=== PATIENT | male | born 1965 | race Caucasian/White ===

== ENCOUNTER 2025-05-17 13:27 | Emergency (ER) | payer MEDICARE, SELFPAY ==
--- OUTSIDE RECORDS SUMMARY | 2025-05-06 13:30 | XMS_ITS | Encounter Summary ---
Author Organization [facility] Address [address] [place] [address] Care Team Providers Care Paper Sales Representative Name Role Phone Carrol Stehi MD Primary Care Provider [phone] Jacquie Townsend Unavailable [phone] Melanie Gallegos LPN Unavailable Reason for Visit * Reason Comments Medication Problem He states he still d oes not have his insulin, it was going to cost him $700. Encounter Details Date Type Department Care Team (Late st Contact Info) Description 05/06/2025 1:30 PM EDT Office Visit [facility] [place] [facility] [address] [facility] [address] [place] [id number] Jacquie Townsend PA [address] [facility] [address] [place] [address] Type 2 diabetes mellitus with other specified [...] Sertraline. He has not heard anything from [facility] and states he did not know anything about the referral. He does feel depressed but also feels like the meds are helping. He states he has uncorked a time capsule , he did go see a meeting facilitator though.States ever since he fell at the [...] complication, with long-term current use of insulin ([facility]) - Glucose Blood (Blood Glucose Test) strip; 1 each by In Vitro route Daily Provided pt with prescription for test strips. He will need to let the pharmacy know what type of glucometer he has. He was unable to afford the Austin CGM. Patient spoke with Melanie Gallegos LPN, Care Management child care team lead today. He declines the Care Management services, [...] month. Provided pt with phone number for [facility]. He can reach out to their office to schedulean appointment. Follow up in about 4 weeks (around 06/03/2025) for Diabetes. documented in this encounter Plan of Treatment Upcoming Encounters Date Type Department Care Team (Late st Contact Info) Description 05/22/2025 3:00 PM EDT Office Visit [facility] [place] [address] [facility] [address] [place] [address] Jacquie Townsend PA [address] [facility] [address] [place] [address] documented as of this encounter Visit Diagnoses [...] documented as of this encounter Care Teams Paper Sales Representative Relationship Specialty Start Date End Date Carrol Sethi MD [address] [facility] [address] [place] [address] PCP - General Family Medicine 01/18/23 Jacquie Townsend PA [address] [facility] [address] [place] [address] PCP - ACO Reach 10/19/24 Melanie Gallegos LPN 112 [facility] [address] [place] [address] 05/03/25 05/07/25 documented as of this encounter
--- OUTSIDE RECORDS SUMMARY | 2025-05-12 21:15 | XMS_ITS | Encounter Summary ---
Author Organization [facility] [employer] [facility] tem Address [facility] [id number] [address] [place] [address] Care Team Providers Care Gauger Delivery Name Role Phone Jacquie Townsend Primary Care Provider [phone] Reason for Visit * Reason Comments Fall Encounter Details Date Type Department Care Team (Late st Contact Info) Description 05/12/2025 9:15 PM EDT - 05/13/2025 12:48 AM EDT Emergency [facility] - Emergency [address] [place] [address] [employer], [address] [place] [address] Recurrent falls while walking (Primary Dx); Neck pain; Left anterior shoulder pain; Left buttock pain; Localized swelling of both lower extremities; Muscle pain Discharge Disposition: Home Social History Tobacco Use Types Packs/Day Years Used Date Smoking Tobacco: Every Day Cigars Smokeless Tobacco: Never Tobacco Cessation:Ready to Q uit: Not Asked; Counseling Given: Not Answered Hunger Screening Answer Date Recorded Within the past 12 months we worried whether our food would run out before we got money to buy more. Never True 05/12/2025 Within the past 12 months th e food we bought just didn't last and we didn't have money to get more. Never True 05/12/2025 Sex and Gender Information Value Date Recorded Sex Assigned at Not on file Legal Sex Male 11:26 AM EDT Gender Identity Not on file Sexual Orientation Not on file documented as of this encounter Last Filed Vital Signs Vital Sign Reading Time Taken Comments Blood Pressure 165/85 05/13/2025 12:15 AM EDT Pulse 89 05/13/2025 12:15 AM EDT Temperature 36.8 C (98.2 F) 05/12/2025 9:28 PM EDT Respiratory Rate 19 05/13/2025 12:15 AM EDT Oxygen Saturation 96% 05/13/2025 12:15 AM EDT Inhaled Oxygen Concentration - - Weight 105 kg (231 lb 7.7 oz) 05/12/2025 9:28 PM EDT Height 185 cm (6' 0.84 ) 05/12/2025 9:28 PM EDT Body Mass Index 30.68 05/12/2025 9:28 PM EDT documented in this encounter Discharge Instructions * Discharge Instructions* Arya Godfrey DO - 05/13/2025 12:27 AM EDT Ice any area of pain Take Percocet as needed for pain Be sure to utilize cane for ambulation Return the ED if you are having any further symptoms or issues with recurrent falls or you have anyinjuries from any other falls in the future Follow-up with your primary care provider's and others specialist with regards to your chronic conditions * Attachments The following attachments cannot be sent through Care Everywhere. * Muscle, joint, and bone pain ??? Discharge instructions ([place]) * Preventing falls in adults ([place]) documented in this encounter Medications at Time of Discharge apixaban (ELIQUIS) 5 mg tablet Take 1 tablet (5 mg total) by mouth in the morning and 1 tablet (5 mg total) before bedtime. cholecalciferol, vitamin D3, (VITAMIN D3) 5,000 units tablet Take 1 tablet (5,000 Units total) by mouth in the morning. furosemide (LASIX) 20 mg tablet Take 1 tablet (20 mg total) by mouth 2 (two) times a day. gabapentin (NEURONTIN) 800 mg tablet Take 1 tablet (800 mg total) by mouth 3 (three) times a day. lamoTRIgine (LaMICtal) 100 mg tablet Take 1 tablet (100 mg total) by mouth in the morning. metoprolol tartrate (LOPRESSOR) 50 mg tablet Take 1 tablet (50 mg total) by mouth in the morning and 1 tablet (50 mg total) before bedtime. QUEtiapine (SEROquel) 100 mg tablet Take 1 tablet (100 mg total) by mouth nightly. sertraline (ZOLOFT) 100 mg tablet Take 1 tablet (100 mg total) by mouth in the morning. oxyCODONE-acetami nophen (PERCOCET) 5-325 mg per tabletIndications :Muscle pain Take 1 tablet by mouth every 6 (six) hours as needed for pain for up to 3 days. 3 Day Supply Max Daily Amount: 4 tablets 12 tablet 05/13/2025 05/16/2025 documented as of this encounter ED Notes * Arya Godfrey, - 05/12/2025 9:44 PM EDTAssociated Order(s): Critical Care Images from the original note were not included. [facility] - EM[facility]GENCY Pt Name: Ross Martin Birthdate: 1965 Chief Complaint: Chief Complaint Patient presents with Fall History of Present Illness: Initial evaluation performed at 9:[address] Arya Godfrey. Ross Martin is a 60 y.o. male who presents to the ED for evaluation of fall. Pt states he hasfrequently been falling recently with the most recent episode being today. Pt states he was walkingwith his cane when he stumbled over his feet and fell backwards, hitting his head. Pt states that after hitting his head he saw stars and notes that he has a headache now. Pt notes that he also injured his left wrist, left elbow, left shoulder, and left buttock. Pt states that his legs are more swollen than they have ever been. 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 Pt states that he is diabetic. Pt notes a family history of CHF on his mother's side and Parkinson'sdisease on his father's side. Pt states that he smokes marijuana but states that he has not today. 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 No pertinent family history. Social History: Social History Socioeconomic History Marital status: Tobacco Use Smoking status: Every Day Types: Cigars Smokeless tobacco: Never Social Drivers of Health Food Insecurity: No Food Insecurity (05/12/2025) Hunger Screening Food Insecurity - Worry: Never True Food Insecurity - Inability: Never True Review of Systems: Review of Systems Physical Exam: ED Triage Vitals [05/12/252127] Temp Heart Rate Resp BP SpO2 36.8 ??C (98.2 ??F) 87 18 187/90 95 % Temp src Heart Rate Source Patient Position BP Location FiO2 (%) -- Monitor Sitting Left arm -- Vitals: 05/12/25 2315 05/12/25 2330 05/12/25 2345 05/13/25 0015 BP: 165/85 Temp: Pulse: 98 97 85 89 Resp: 20 25 20 19 SpO2: 96% 99% 99% 96% MAP (mmHg): Height: Weight: 96 Physical Exam Vitals and nursing note reviewed. Constitutional: General: He is awake. He is not in acute distress. Appearance: Normal appearance. He is well-developed, well-groomed and normal weight. He is not ill-appearing. HENT: Head: Normocephalic. Contusion (occipital) present. Right Ear: Hearing, tympanic membrane, ear canal and external ear normal. No hemotympanum. Left Ear: Hearing, tympanic membrane, ear canal and external ear normal. No hemotympanum. Nose: Nose normal. No nasal deformity, septal deviation or signs of injury. Right Nostril: No epistaxis or septal hematoma. Left Nostril: No epistaxis or septal hematoma. Mouth/Throat: Lips: [place]. Mouth: Mucous membranes are moist. No injury, lacerations or oral lesions. Pharynx: Oropharynx is clear. Eyes: General: Lids are normal. Vision grossly intact. Gaze aligned appropriately. Extraocular Movements: Extraocular movements intact. Conjunctiva/sclera: Conjunctivae normal. Pupils: Pupils are equal, round, and reactive to light. Neck: Trachea: Phonation normal. Cardiovascular: Rate and Rhythm: Normal rate and regular rhythm. Pulses: Normal pulses. Radial pulses are 2+ on the right side and 2+ on the left side. Dorsalis pedis pulses are 2+ on the right side and 2+ on the left side. Heart sounds: Normal heart sounds, S1 normal and S2 normal. Pulmonary: Effort: Pulmonary effort is normal. No accessory muscle usage or respiratory distress. Breath sounds: Normal breath sounds and air entry. No stridor or decreased air movement. No decreased breath sounds. Abdominal: General: Abdomen is flat. Bowel sounds are normal. There are no signs of injury. Palpations: Abdomen is soft. Tenderness: There is no abdominal tenderness. Musculoskeletal: General: Normal range of motion. Left shoulder: Tenderness present. Left elbow: Tenderness present. Cervical back: Neck supple. No signs of trauma. Muscular tenderness (left) present. Left hip: Tenderness present. Right lower le+ Pitting Edema present. Left lower le+ Pitting Edema present. Skin: General: Skin is warm. Capillary Refill: Capillary refill takes less than 2 seconds. Neurological: General: No focal deficit present. Mental Status: He is alert and oriented to person, place, and time. Mental status is at baseline. GCS: GCS eye subscore is 4. GCS verbal subscore is 5. GCS motor subscore is 6. Sensory: Sensation is intact. Motor: Motor function is intact. Psychiatric: Attention and Perception: Attention and perception normal. Mood and Affect: Mood and affect normal. Speech: Speech normal. Behavior: Behavior normal. Behavior is cooperative. Thought Content: Thought content normal. Cognition and Memory: Cognition and memory normal. Judgment: Judgment normal. Procedure: Critical Care Performed by: Arya Godfrey DO Authorized by: Arya Godfrey DO Critical care provider statement: Critical care was time spent personally by me on the following activities: Obtaining history from patient or surrogate Comments: C-Collar placed Re-evaluation: Luis Briscoe (scribroberto), documented on behalf and in the presence of Dr. Jenifer Godfrey. Medical Decision Making Orders Placed This Encounter Critical Care CT brain without contrast CT cervical spine without contrast X-ray shoulder left minimum 2 views X-ray elbow left minimum [address] chest with contrast CT abdomen and pelvis with contrast CBC auto differential Ethanol Comprehensive metabolic panel Magnesium Extra Urine Extra Urine Culture Extra Urine [place] CK Total Extra Tubes Lactate w/ Reflex Apply cervical collar-Hard Bedside Glucose *Place/Obtain serum glucose if >500 per glucometer. POCT Nursing Urine Macroscopic UA Medications labetaloL (NORMODYNE,TRANDATE) injection 10 mg (10 mg intravenous Given 05/12/252212) sodium chloride 0.9 % radiology injection (80 mL intravenous Given 05/12/252326) iohexoL (OMNIPAQUE) 300 mg iodine/mL 100 mL (100 mL intravenous Given 05/12/252326) Problems Addressed: Left anterior shoulder pain: acute illness or injury Left buttock pain: acute illness or injury Localized swelling of both lower extremities: acute illness or injury Muscle pain: acute illness or injury Neck pain: acute illness or injury Recurrent falls while walking: acute illness or injury Amount and/or Complexity of Data Reviewed Labs: ordered. Decision-making details documented in ED Course. Details: Radiology: ordered. Decision-making details documented in ED Course. Risk OTC drugs. Prescription drug management. Parenteral controlled substances. ED Course: ED Course as of 05/13/25 1307 Sun May 12, 20252308 LACTATE W/REFLEX: 1.0 [DL] 2309 Magnesium: 1.9 [DL] 2309 Bedside glucose(!): 262 [DL] 2309 Cpk isoenzymes(!): 253 [DL] 2309 Ethanol: <0.010 [DL] 2336 CT brain without contrast No evidence of an acute intracranial process. [DL] 233 CT cervical spine without contrast Multilevel degenerative disc disease without evidence of acute osseous abnormality. [DL] 2336 X-ray shoulder left minimum 2 views No fracture noted [DL] 2336 X-ray elbow left minimum 3 views No obvious elbow joint effusion, fracture or dislocation [DL] TueMay 13, [address] chest with contrast No acute abnormalities demonstrated. [DL] 0005 CT abdomen and pelvis with contrast No definitive acute abdominal or pelvic traumatic visceral injury identified. [DL] 0019 Reassessed patient at bedside. Patient's pain has otherwise tolerable. Patient able to ambulate well. Patient is agreeable to be provided with a few days script for Percocet for pain control. Patient otherwise stable for discharge [DL] ED Course User Index [DL] Arya Godfrey DO Clinical Impressions as of 05/13/25 1307 Recurrent falls while walking Neck pain Left anterior shoulder pain Left buttock pain Localized swelling of both lower extremities Muscle pain . ED Disposition ED Disposition Discharge Date/Time TueMay 13, 2025 12:27 AM Comment At the time of discharge, the plan has been discussed with the patient regarding the diagnosis and prognosis. All questions have been answered. Verbal discharge instructions were discussed with the patient. The patient has been advised to follow up w ith their Primary Care Provider within 1 week. The patient was also instructed to return to the ED if their symptoms change, worsen, new symptoms arise or if they have any additional concerns. Medications Prescribed this Visit Sig oxyCODONE-acetaminophen (PERCOCET) 5-325 mg per tablet Take 1 tablet by mouth every 6 (six) hours as needed for pain for up to 3 days. 3 Day Supply Max Daily Amount: 4 tablets . Please note that portions of this note were completed with a voice recognition program. Efforts were made to edit the dictations but occasionally words are mis-transcribed. Luis Estevez 05/12/252154 Luis Estevez 05/12/253 Luis Estevez 05/12/255 Arya Godfrey DO 05/13/25 1308 * Prem Dsouza RN - 05/12/2025 9:30 PM EDT Pt to ER in wheelchair stand and pivot to bed c/o fall while walking today onto cement with left head neck arm hip and back pain. Pt endorses mutiple falls in the past few months with scattered abrasions in various stages of healing. documented in this encounter Plan of Treatment Not on file documented as of this encounter Procedures Procedure Name Priority Date/Time Associated Diagnosis Comments POCT NURSING URINE MACROSCOPIC UA Routine 05/13/2025 12:15 AM EDT ER EXTRA URINE MARBLE STAT 05/12/2025 11:59 PM EDT ER EXTRA URINE CULTURE STAT 11:59 PM EDT ER EXTRA URINE STAT 05/12/2025 11:[address] CHEST W CONT STAT 05/12/2025 11:[address] ABDOMEN AND PELVIS W CONT STAT 05/12/2025 11:[address] CERVICAL SPINE WO CONT STAT 05/12/2025 11:[address] BRAIN WO CONT STAT 05/12/2025 11:2 6 PM EDT XR ELBOW LT MIN 3 VWS STAT 05/12/2025 11:19 PM EDT XR SHOULDER LT MIN 2 VWS STAT 05/12/2025 11:18 PM EDT LACTATE W/ REFLEX STAT 05/12/2025 9:5 4 PM EDT PM ED CRITICAL CARE Routine 05/12/2025 9 :44 PM EDT BEDSIDE GLUCOSE Routine 05/12/2025 9:35 PM EDT CBC WITH AUTO DIFFERENTIAL STAT 05/12/2025 9:32 PM EDT MAGNESIUM STAT 05/12/2025 9:32 PM EDT CK TOTAL STAT 05/12/2025 9:32 PM EDT ETHANOL STAT 05/12/2025 9:32 PM EDT COMPREHENSIVE METABOLIC PANEL STAT 05/12/2025 9:32 PM EDT documented in this encounter Results * POCT Nursing Urine Macroscopic UA (05/13/2025 12:15 AM EDT) POC Urine Specific [place] 1.010 1.010, 1.015, 1.020, 1.025 05/13/2025 12:04 AM EDT [facility] POC Urine Leukocyte Esterase Negative Negative 05/13/2025 12:04 AM EDT [facility] POC Urine Nitrite Negative Negative 05/13/2025 12:04 AM EDT [facility] POC Urine pH 7.0 5.0, 6.0, 6.5, 7.0, 7.5, 8.0, 8.5, 5.5 05/13/2025 12:04 AM EDT [facility] POC Urine Protein Negative Negative 05/13/2025 12:04 AM EDT [facility] POC Urine Glucose Negative Negative 05/13/2025 12:04 AM EDT [facility] POC Urine Ketones Negative Negative 05/13/2025 12:04 AM EDT [facility] POC Urine Urobilinogen 0.2 E.U./dL 05/13/2025 12:04 AM EDT [facility] POC Urine Bilirubin Negative Negative 05/13/2025 12:04 AM EDT [facility] POC Urine Blood/HGB Negative Negative 05/13/2025 12:04 AM EDT [facility] Urine 05/13/2025 12:1 5 AM EDT 05/13/2025 12:04 AM EDT us Arya Godfrey DO POINT OF CARE TEST ORDERA BLES Final Result Performing Organization Address City/State/[facility] de Phone Number [facility] [address] [place] [address], * Extra Urine [place] (05/12/2025 11:59 PM EDT) Extra Tube Auto Resulted 05/13/2025 1:01 AM EDT [facility] Urine Urine specimen collection, clean catch / Unknown 05/12/2025 11:59 PM EDT 05/13/2025 12:21 AM EDT us Arya Godfrey DO URINE ORDERABLES Final Re sult Performing Organization Address [facility] Co de Phone Number [address] [place] [address], [place] * Extra Urine Culture (05/12/2025 11:59 PM EDT) Extra Tube Auto Resulted 05/13/2025 1:01 AM EDT [facility] Urine Urine specimen collection, clean catch / Unknown 05/12/2025 11:59 PM EDT 05/13/2025 12:21 AM EDT Arya Godfrey DO URINE ORDERABLES Final Re sult Performing Organization Address [facility] Co de Phone Number [address] [place] [address], [place] * Extra Urine (05/12/2025 11:59 PM EDT) Extra Tube Auto Resulted 05/13/2025 1:01 AM EDT [facility] Urine Urine specimen collection, clean catch / Unknown 05/12/2025 11:59 PM EDT 05/13/2025 12:21 AM EDT us Arya Godfrey DO URINE ORDERABLES Final Re sult Performing Organization Address [facility] Co de Phone Number [address] [place] [address], [place] * CT abdomen and pelvis with contrast (05/12/2025 11:26 PM EDT) Anatomical Region Laterality Modality Body, Abdomen, Body Covera N/A Compu sandeep Tomography 05/12/2025 11:4 7 PM EDT Narrative 05/12/2025 11:48 PM EDT STUDY: ABDOMEN AND PELVIS CT WITH CONTRAST CLINICAL HISTORY: Acute abdominal pain. Fall. Trauma. fall COMPARISON: None. TECHNIQUE: CT abdomen and pelvis was performed utilizing 5 mm axial reconstructions following the uneventful administration of 100 cc Omnipaque 300 nonionic intravenous contrast. Coronal and sagittal reformatted images as well as delayed excretory phase images were obtained and reviewed. Automated exposure control was utilized. FINDINGS: Abdomen: No pleural or pericardial effusion and lung bases. There is dependent change and atelectasis in both lungs. The liver, adrenal glands, pancreas and spleen appear unremarkable. The gallbladder is present. Small bowel is nondilated. No enlarged mesenteric or retroperitoneal lymph nodes. No renal collecting system dilatation. Pelvis: No free pelvic fluid. No enlarged pelvic lymph nodes. Urinary bladder is grossly unremarkable. No vertebral body height loss. IMPRESSION: 1. No definitive acute abdominal or pelvic traumatic visceral injury identified. All CT scans at this facility use dose modulation, iterative reconstruction, and/or weight based dosing when appropriate to reduce radiation dose to as low as reasonably achievable. Finalized by Alexi Amaya MD on 05/12/2025 11:48 PM Procedure Note Alexi Amaya MD - 05/12/2025 STUDY: ABDOMEN AND PELVIS CT WITH CONTRAST CLINICAL HISTORY: Acute abdominal pain. Fall. Trauma. fall COMPARISON: None. TECHNIQUE: CT abdomen and pelvis was performed utilizing 5 mm axialreconstructions following the uneventful administration of 100 ccOmnipaque 300 nonionic intravenous contrast. Coronal and sagittalreformatted images as well as delayed excretory phase images were obtainedand reviewed. Automated exposure control was utilized. FINDINGS: Abdomen: No pleural or pericardial effusion and lung bases. There is dependentchange and atelectasis in both lungs. The liver, adrenal glands, pancreas and spleen appear unremarkable. The gallbladder is present. Small bowel is nondilated. No enlarged mesenteric or retroperitoneal lymph nodes. No renal collecting system dilatation. Pelvis: No free pelvic fluid. No enlarged pelvic lymph nodes. Urinary bladder isgrossly unremarkable. No vertebral body height loss. IMPRESSION: 1. No definitive acute abdominal or pelvic traumatic visceral injuryidentified. All CT scans at this facility use dose modulation, iterativereconstruction, and/or weight based dosing when appropriate to reduceradiation dose to as low as reasonably achievable. Finalized by Alexi Amaya MD on 05/12/2025 11:48 PM Arya Godfrey DO IMG CT ORDERABLES Final R esult * CT chest with contrast (05/12/2025 11:26 PM EDT) Anatomical Region Laterality Modality Body, Lung, Chest, Body Covera N/A C omputed Tomography 05/12/2025 11:4 2 PM EDT Narrative 05/12/2025 11:48 PM EDT History: Trauma from fall Exam/Technique: CT imaging of the chest is performed with bolus IV contrast. Comparison: None Findings: There is no evidence of infiltrates, or other active pulmonary disease. No pneumothorax or pleural fluid demonstrated. Mild coronary artery calcification is demonstrated. The thoracic aorta appears normal. There is no evidence of mediastinal hematoma or additional mediastinal abnormalities. No significant abnormalities are displayed in the chest wall.No fractures are displayed on bone windows from this study. IMPRESSION: No acute abnormalities demonstrated. All CT scans at this facility use dose modulation, iterative reconstruction, and/or weight based dosing when appropriate to reduce radiation dose to as low as reasonably achievable. Finalized by Travis Rubalcava MD on 05/12/2025 11:48 PM Procedure Note Travis Rubalcava MD - 05/12/2025 History: Trauma from fall Exam/Technique: CT imaging of the chest is performed with bolus IVcontrast. Comparison: None Findings: There is no evidence of infiltrates, or other active pulmonarydisease. No pneumothorax or pleural fluid demonstrated. Mild coronary artery calcification is demonstrated. The thoracic aortaappears normal. There is no evidence of mediastinal hematoma oradditional mediastinal abnormalities. No significant abnormalities are displayed in the chest wall.No fracturesare displayed on bone windows from this study. IMPRESSION: No acute abnormalities demonstrated. All CT scans at this facility use dose modulation, iterativereconstruction, and/or weight based dosing when appropriate to reduceradiation dose to as low as reasonably achievable. Finalized by Travis Rubalcava MD on 05/12/2025 11:48 PM Arya Godfrey DO IMG CT ORDERABLES Final R esult * CT cervical spine without contrast (05/12/2025 11:26 PM EDT) Anatomical Region Laterality Modality MSK, Neuro, Spine, C-spine, Spine Covera N/A Computed Tomography 05/12/2025 11:2 8 PM EDT Narrative 05/12/2025 11:29 PM EDT STUDY: Cervical spine CT without contrast CLINICAL HISTORY: Acute cervical neck pain. Fall. Trauma. Injury. COMPARISON:None TECHNIQUE: CT cervical spine was performed utilizing thin section CT imaging without contrast. Coronal and sagittal reformatted images were obtained and reviewed. Automated exposure control was utilized. FINDINGS: The cervical spine is visualized from the skull base through T2. There is degenerative disc disease with disc loss and endplate degenerative changes most pronounced at C5-C6 and C6-C7. Facets are well aligned. The dens is intact. The lateral masses of C1 appear to be well aligned with C2. Bilateral carotid calcifications are noted. Please note, ligamentous injury is not well evaluated on a neutral position CT. If concern for ligamentous injury consider flex-ex radiographs or MRI. IMPRESSION: 1. Multilevel degenerative disc disease without evidence of acute osseous abnormality. All CT scans at this facility use dose modulation, iterative reconstruction, and/or weight based dosing when appropriate to reduce radiation dose to as low as reasonably achievable. Finalized by Alexi Amaya MD on 05/12/2025 11:29 PM Procedure Note Alexi Amaya MD - 05/12/2025 STUDY: Cervical spine CT without contrast CLINICAL HISTORY: Acute cervical neck pain. Fall. Trauma. Injury. COMPARISON:None TECHNIQUE: CT cervical spine was performed utilizing thin section CTimaging without contrast. Coronal and sagittal reformatted images wereobtained and reviewed. Automated exposure control was utilized. FINDINGS: The cervical spine is visualized from the skull base through T2. There isdegenerative disc disease with disc loss and endplate degenerative changesmost pronounced at C5-C6 and C6-C7. Facets are well aligned. The dens isintact. The lateral masses of C1 appear to be well aligned with C2. Bilateral carotid calcifications are noted. Please note, ligamentous injury is not well evaluated on a neutralposition CT. If concern for ligamentous injury consider flex-exradiographs or MRI. IMPRESSION: 1. Multilevel degenerative disc disease without evidence of acute osseousabnormality. All CT scans at this facility use dose modulation, iterativereconstruction, and/or weight based dosing when appropriate to reduceradiation dose to as low as reasonably achievable. Finalized by Alexi Amaya MD on 05/12/2025 11:29 PM us Arya Godfrey DO IMG CT ORDERABLES Final R esult * CT brain without contrast (05/12/2025 11:26 PM EDT) Anatomical Region Laterality Modality Neuro, Head, Head and Neck, Neuro Covera N/A Computed Tomography 05/12/2025 11:2 6 PM EDT Narrative 05/12/2025 11:27 PM EDT STUDY: CT HEAD WITHOUT CONTRAST CLINICAL HISTORY: fall; occipital head ache acute head pain COMPARISON: None. TECHNIQUE: CT head was performed without contrast utilizing 2.5 mm axial reconstruction with images reviewed in bone and brain windows. Automated exposure control was utilized. FINDINGS: There is no intracranial mass, mass effect or shift of midline structures. No extra-axial fluid collection. Mcginnis-white differentiation is preserved. No CT evidence of large vessel vascular distribution of acute infarct, acute ischemia or hemorrhage. Please note, MRI is more sensitive for the evaluation of acute or occult process. IMPRESSION: 1. No evidence of an acute intracranial process. All CT scans at this facility use dose modulation, iterative reconstruction, and/or weight based dosing when appropriate to reduce radiation dose to as low as reasonably achievable. Finalized by Alexi Amaya MD on 05/12/2025 11:27 PM Procedure Note Alexi Amaya MD - 05/12/2025 STUDY: CT HEAD WITHOUT CONTRAST CLINICAL HISTORY: fall; occipital head ache acute head pain COMPARISON: None. TECHNIQUE: CT head was performed without contrast utilizing 2.5 mm axialreconstruction with images reviewed in bone and brain windows. Automatedexposure control was utilized. FINDINGS: There is no intracranial mass, mass effect or shift of midline structures.No extra-axial fluid collection. Mcginnis-white differentiation is preserved.No CT evidence of large vessel vascular distribution of acute infarct,acute ischemia or hemorrhage. Please note, MRI is more sensitive for the evaluation of acute or occult process. IMPRESSION: 1. No evidence of an acute intracranial process. All CT scans at this facility use dose modulation, iterativereconstruction, and/or weight based dosing when appropriate to reduceradiation dose to as low as reasonably achievable. Finalized by Alexi mAaya MD on 05/12/2025 11:27 PM Arya Godfrey DO IMG CT ORDERABLES Final R esult * X-ray elbow left minimum 3 views (05/12/2025 11:19 PM EDT) Anatomical Region Laterality Modality Upper Extremities, MSK, Elbow Left Co mputed Radiography 05/12/2025 11:2 2 PM EDT Narrative 05/12/2025 11:23 PM EDT XR ELBOW LT MIN 3 VWS Clinical history:fall; trauma Comparison: None. Impression: Evaluation is somewhat compromised by positioning. No obvious elbow joint effusion, fracture or dislocation within the limitations of this examination. Finalized by Alexi Amaya MD on 05/12/2025 11:23 PM Procedure Note Alexi Amaya MD - 05/12/2025 XR ELBOW LT MIN 3 VWS Clinical history:fall; trauma Comparison: None. Impression: Evaluation is somewhat compromised by positioning. No obvious elbow jointeffusion, fracture or dislocation within the limitations of thisexamination. Finalized by Alexi Amaya MD on 05/12/2025 11:23 PM Arya Godfrey DO IMG DIAGNOSTIC IMAGING OR DERABLES Final Result * X-ray shoulder left minimum 2 views (05/12/2025 11:18 PM EDT) Anatomical Region Laterality Modality MSK, Upper Extremities, Shoulder Left Computed Radiography 05/12/2025 11:2 3 PM EDT Narrative 05/12/2025 11:24 PM EDT History: Fall with left shoulder Exam/Technique: Neutral AP, oblique Grashey, and Y views of the left shoulder Comparison: None Findings: There is no evidence of recent fracture or dislocation. There is degenerative change in the AC joint with small spurs extending inferiorly. No other focal bony abnormalities are displayed on these views with glenohumeral and AC joints intact and normally aligned. IMPRESSION: No acute bony abnormalities displayed. Finalized by Travis Rubalcava MD on 05/12/2025 11:24 PM Procedure Note Travis Rubalcava MD - 05/12/2025 History: Fall with left shoulder Exam/Technique: Neutral AP, oblique Grashey, and Y views of the leftshoulder Comparison: None Findings: There is no evidence of recent fracture or dislocation. Thereis degenerative change in the AC joint with small spurs extendinginferiorly. No other focal bony abnormalities are displayed on these viewswith glenohumeral and AC joints intact and normally aligned. IMPRESSION: No acute bony abnormalities displayed. Finalized by Travis Rubalcava MD on 05/12/2025 11:24 PM us Arya Godfrey DO IMG DIAGNOSTIC IMAGING OR DERABLES Final Result * Lactate w/ Reflex (05/12/2025 9:54 PM EDT) LACTATE W/REFLEX 1.0 0.4 - 2.0 mmol/L 05/12/2025 10:15 PM EDT [facility] Blood Venous blood / Unknown Venipuncture / Unknown 05/12/2025 9:54 PM EDT 05/12/2025 9:57 PM EDT Narrative [facility] - 05/12/2025 10:15 PM EDT Result did not trigger repeat Lactate, re-order if needed. us Arya Godfrey DO LAB BLOOD ORDERABLES Haleigh l Result [facility] [address] [place] [address], * Critical Care (05/12/2025 9:44 PM EDT) Arya Hunt DO - 05/12/2025 9:44 PM EDT Arya Godfrey DO 05/13/2025 1:08 PM Critical Care Performed by: Arya Godfrey DO Authorized by: Arya Godfrey DO Critical care provider statement: Critical care was time spent personally by me on the following activities: Obtaining history from patient or surrogate Comments: C-Collar placed Arya Godfrey DO PROCEDURE/MINOR SURGICAL ORDERABLES Final Result * (ABNORMAL) Bedside Glucose *Place/Obtain serum glucose if >500 per glucometer. (05/12/2025 9:35 PM EDT) Bedside Glucose (POC) 262(H) 65 - 99 mg/dL 05/12/2025 9:38 PM EDT [facility] arterial/capilla ry 05/12/2025 9:35 PM EDT 05/12/2025 9:38 PM EDT Arya Godfrey DO POINT OF CARE TEST ORDERA BLES Final Result Performing Organization Address City/[facility] Co de Phone Number [address] [place] [address], [place] * (ABNORMAL) CK Total (05/12/2025 9:32 PM EDT) CPK 253(H) 24 - 195 U/L 05/12/2025 9:55 PM EDT [facility] Blood Venous blood / Unknown Venipuncture / Unknown 05/12/2025 9:32 PM EDT 05/12/2025 9:34 PM EDT Arya Godfrey DO LAB BLOOD ORDERABLES Haleigh l Result Performing Organization Address City/[facility] Co de Phone Number [address] [place] [address], [place] * Magnesium (05/12/2025 9:32 PM EDT) MAGNESIUM 1.9 1.8 - 2.6 mg/dL 05/12/2025 9:55 PM EDT [facility] Blood Venous blood / Unknown Venipuncture / Unknown 05/12/2025 9:32 PM EDT 05/12/2025 9:34 PM EDT us Arya Godfrey DO LAB BLOOD ORDERABLES Haleigh l Result [facility] [address] [place] [address], [place] * (ABNORMAL) Comprehensive metabolic panel (05/12/2025 9:32 PM EDT) SODIUM 134 134 - 146 mmol/L 05/12/2025 9:55 PM EDT [facility] POTASSIUM 4.1 3.5 - 5.0 mmol/L 05/12/2025 9:55 PM EDT [facility] CHLORIDE 101 98 - 109 mmol/L 05/12/2025 9:55 PM EDT [facility] CARBON DIOXIDE 26 22 - 32 mmol/L 05/12/2025 9:55 PM EDT [facility] ANION GAP 7 5 - 15 mmol/L 05/12/2025 9:55 PM EDT [facility] BLOOD UREA NITROGEN 14 5 - 27 mg/dL 05/12/2025 9:55 PM EDT [facility] CREATININE 0.98 0.70 - 1.20 mg/dL 05/12/2025 9:55 PM EDT [facility] Comment:METHOD TRACEABLE TO IDMS STANDARD GLUCOSE 275(H) 65 - 99 mg/dL 05/12/2025 9:55 PM EDT [facility] CALCIUM 9.3 8.5 - 10.5 mg/dL 05/12/2025 9:55 PM EDT [facility] TOTAL PROTEIN 7.1 6.0 - 8.0 g/dL 05/12/2025 9:55 PM EDT [facility] ALBUMIN 4.0 3.2 - 5.3 g/dL 05/12/2025 9:55 PM EDT [facility] ALKALINE PHOSPHATASE 55 39 - 130 U/L 05/12/2025 9:55 PM EDT [facility] AST 26 <=41 U/L 05/12/2025 9:55 PM EDT [facility] ALT 24 <=40 U/L 05/12/2025 9:55 PM EDT [facility] BILIRUBIN,TOTAL 0.8 0.3 - 1.2 mg/dL 05/12/2025 9:55 PM EDT [facility] EGFR Non-Race Dependent 87 >=60 ml/min/1.7 3sq.m 05/12/2025 9:55 PM EDT [facility] Comment: eGFR not reported due to non-numeric value for Creatinine. Reported eGFR is based on the CKD-EPI 2020 equation that does not use a race coefficient. Blood Venous blood / Unknown Venipuncture / Unknown 05/12/2025 9:32 PM EDT 05/12/2025 9:34 PM EDT Arya Barger Epifanio DO LAB BLOOD ORDERABLES Haleigh l Result Performing Organization Address City/[facility] Co de Phone Number [address] [place] [address], [place] * Ethanol (05/12/2025 9:32 PM EDT) ETHANOL <0.010 <=0.080 g/dL 05/12/2025 9:55 PM EDT [facility] Comment: This report is intended for use in clinical monitoring or management of patients. Blood Venous blood / Unknown Venipuncture / Unknown 05/12/2025 9:32 PM EDT 05/12/2025 9:34 PM EDT Arya Barger Epifanio DO LAB BLOOD ORDERABLES Haleigh l Result Performing Organization Address City/[facility] Co de Phone Number [address] [place] [address], [place] * CBC auto differential (05/12/2025 9:32 PM EDT) [facility] Signature WBC 6.3 4 - 11 x10E9/L 05/12/2025 9:53 PM EDT [facility] RBC Count 4.72 4.1 - 5.7 X10E12/L 05/12/2025 9:53 PM EDT [facility] Hemoglobin 14.3 13 - 17 g/dL 05/12/2025 9:53 PM EDT [facility] Hematocrit 42.0 39 - 50 % 05/12/2025 9:53 PM EDT [facility] MCV 89 80 - 100 fL 05/12/2025 9:53 PM EDT [facility] MCH 30.4 27 - 34 pg 05/12/2025 9:53 PM EDT [facility] MCHC 34.1 32 - 36 g/dL 05/12/2025 9:53 PM EDT [facility] RDW 14.0 11.5 - 15 % 05/12/2025 9:53 PM EDT [facility] Platelet Count 207 150 - 450 X10E9/L 05/12/2025 9:53 PM EDT [facility] MPV 7.3 7 - 12 fL 05/12/2025 9:53 PM EDT [facility] Neutrophils % 69.0 % 05/12/2025 9:53 PM EDT [facility] Lymphocytes % 18.4 % 05/12/2025 9:53 PM EDT [facility] Monocytes % 9.5 % 05/12/2025 9:53 PM EDT [facility] Eosinophils % 1.7 % 05/12/2025 9:53 PM EDT [facility] Basophils % 1.4 % 05/12/2025 9:53 PM EDT [facility] Neutrophils Absolute (A) 4.4 1.5 - 6.6 10*3/uL 05/12/2025 9:53 PM EDT [facility] Lymphocytes Absolute 1.2 1.0 - 3.5 10*3/uL 05/12/2025 9:53 PM EDT [facility] Monocytes Absolute 0.6 0.0 - 0.9 10*3/uL 05/12/2025 9:53 PM EDT [facility] Eosinophils Absolute 0.1 0.0 - 0.4 10*3/uL 05/12/2025 9:53 PM EDT [facility] Basophils Absolute 0.1 0.0 - 0.2 10*3/uL 05/12/2025 9:53 PM EDT [facility] Differential Type AUTOMATED DIFFERENTIAL 05/12/2025 9:53 PM EDT [facility] Blood Venous blood / Unknown Venipuncture / Unknown 05/12/2025 9:32 PM EDT 05/12/2025 9:34 PM EDT us Arya Godfrey DO LAB BLOOD ORDERABLES Haleigh l Result [facility] [address] [place] [address], documented in this encounter Visit Diagnoses Diagnosis Recurrent falls while walking- Primary Neck pain Cervicalgia Left anterior shoulder pain Left buttock pain Unspecified myalgia and myositis Localized swelling of both lower extremities Muscle pain Unspecified myalgia and myositis documented in this encounter Administered Medications Inactive Administered Medications - up to 3 most recent administrations Medication Order MAR Action Action Date Dose Rate Site iohexoL (OMNIPAQUE) 300 mg iodine/mL 100 mL 100 mL, intravenous, Once in imaging, contrast, Starting on 05/12/25 at 2326, For 1 dose, VESICANT (RED) Given 05/12/2025 11:27 PM EDT 100 mL labetaloL (NORMODYNE,TRANDATE) injection 10 mg 10 mg, intravenous, Once, On 05/12/25 at 2147, For 1 dose, For systolic blood pressure greater than >180 mmHg Look-alike/sound-alike medication - verify indication for use. Given 05/12/2025 10:13 PM EDT 10 mg sodium chloride 0.9 % flush 10 mL 10 mL, intravenous, As needed, line care, Starting on 05/12/25 at 2326 Given 05/12/2025 11:28 PM EDT 10 mL sodium chloride 0.9 % radiology injection 80 mL, intravenous, Once in imaging, pre/post contrast, Starting on 05/12/25 at 2326, For 1 dose Given 05/12/2025 11:27 PM EDT 80 mL documented in this encounter Active and Recently Administered Medications Times are shown in EDT. Scheduled Medication Order 05/11/2025 05/12/2025 05/13/2025 acetaminophen (OFIRMEV) IVPB Premix 1,000 mg 1,000 mg, intravenous, at 400 mL/hr, Administer over 15 Minutes, Once, On 05/12/25 at 2146, For 1 dose 2146 (Not Given - Provider: Prem Dsouza RN - Reason: Patient/family refused) labetaloL (NORMODYNE,TRANDATE) injection 10 mg (COMPLETED) 10 mg, intravenous, Once, On 05/12/25 at 2147, For 1 dose, For systolic blood pressure greater than >180 mmHg Look-alike/sound-alike medication - verify indication for use. 2213 (Given - Provider: Andrez Dsouza RN) orphenadrine (NORFLEX) injection 60 mg 60 mg, intramuscular, Once, On 05/12/25 at 2146, For 1 dose, If ordered IV: give over [address] patient in supine position during and for 5-10 minutes following injection. 2212 (Not Given - Provider: Prem Dsouza RN - Reason: Patient/family refused) PRN Medication Order 05/11/2025 05/12/2025 05/13/2025 iohexoL (OMNIPAQUE) 300 mg iodine/mL 100 mL (COMPLETED) 100 mL, intravenous, Once in imaging, contrast, Starting on 05/12/25 at 2326, For 1 dose, VESICANT (RED) 2327 (Given - [phone] sodium chloride 0.9 % flush 10 mL 10 mL, intravenous, As needed, line care, Starting on 05/12/25 at 2326 2328 (Given - Provider: FARRAH Edgar) sodium chloride 0.9 % radiology injection (COMPLETED) 80 mL, intravenous, Once in imaging, pre/post contrast, Starting on 05/12/25 at 2326, For 1 dose 2327 (Given - Provider: FARRAH Edgar) documented in this encounter Care Teams Gauger Delivery Relationship Specialty Start Date End Date Jacquie Townsend PA PCP - General Physician Middleware Consultant 11/01/22 documented as of this encounter
[2025-05-17 13:37] VITALS: BP 159/87; PULSE 67; TEMP 36.7; O2SAT 99; BMI 28.0
--- OUTSIDE RECORDS SUMMARY | 2025-05-17 13:50 | XMS_ITS | Encounter Summary ---
Author Organization [facility] Address [address] [place] [address] Care Team Providers Care Inside Outside Sales Representative Name Role Phone Carrol Sethi MD Primary Care Provider [phone] Jacquie Townsend PA Unavailable [phone] Melanie Gallegos LPN Unavailable Encounter Details Date Type Department Care Team (Late Contact Info) Description 01/21/2025 Abstract [facility] [place] [facility] [address] [facility] [address] [place] [address] Carrol Sethi MD [address] [facility] 110 [place] [address] Social History Tobacco Use Types Packs/Day Years Used Date Smoking Tobacco: Never Smokeless Tobacco: Never Alcohol Use Standard Drinks/Week Comments Not Currently 0 (1 standard drink = 0.6 oz pure alcohol) Caffeine intake: 1-2 cups per day coffee PHQ-2 Answer Date Recorded Patient Health Questionnaire-2 Score 0 2025 Sex and Gender Information Value Date Recorded Sex Assigned at Male 01/18/2024 4:05 AM EDT Legal Sex Male 7:17 PM EDT Gender Identity Male 01/18/2024 4:05 AM EDT Sexual Orientation Straight 01/18/2024 4: 05 AM EDT documented as of this encounter Plan of Treatment Upcoming Encounters Date Type Department Care Team (Late Contact Info) Description 05/22/2025 3:00 PM EDT Office Visit [facility] [place] [facility] [address] [facility] 110 [place] [address] Jacquie Townsend PA [address] [facility] [address] [place] [address] documented as of this encounter Visit Diagnoses Not on filedocumented in this encounter Additional Health Concerns Assessment Noted Time PHQ-9 Depression Total Score: 0 01/17/20 25 2:00 PM EDT documented as of this encounter Care Teams Inside Outside Sales Representative Relationship Specialty Start Date End Date Carrol Sethi MD [address] [facility] [address] [place] [address] PCP - General Family Medicine 01/18/23 Jacquie Townsend PA [address] [facility] [address] [place] [address] PCP - ACO Reach 10/19/24 Melanie Gallegos LPN [address] [facility] [address] [place] [address] 05/03/25 05/07/25 documented as of this encounter
--- OUTSIDE RECORDS SUMMARY | 2025-05-17 13:50 | XMS_ITS | Encounter Summary ---
Author Organization [facility] Address [address] [facility] [place] [address] Care Team Providers Care Director Community Health Nursing Name Role Phone Carrol Sethi MD Primary Care Provider [phone] Jacquie Townsend Unavailable [phone] Melanie Gallegos LPN Unavailable Encounter Details Date Type Department Care Team (Late Contact Info) Description 04/24/2025 Abstract [facility] [address] [place] [phone] Solitario Simmons, DPM FACFAS [address] [place] [address] Social History Tobacco Use Types Packs/Day Years Used Date Smoking Tobacco: Never Smokeless Tobacco: Never Alcohol Use Standard Drinks/Week Comments Not Currently 0 (1 standard drink = 0.6 oz pure alcohol) Caffeine intake: 1-2 cups per day coffee PHQ-2 Answer Date Recorded Patient Health Questionnaire-2 Score 0 04/09/2025 Sex and Gender Information Value Date Recorded [...] 3:00 PM EDT Office Visit [facility] [place] [facility] [address] [facility] [address] [place] [phone] Jacquie Townsend PA [address] [facility] [address] [place] [address] documented as of this encounter Visit Diagnoses Not on filedocumented in this encounter Additional Health Concerns Assessment Noted Time PHQ-9 Depression Total Score: 0 01/17/20 25 2:00 PM EDT documented as of this encounter Care Teams Director Community Health Nursing Relationship Specialty Start Date End Date Carrol Sethi MD [address] [facility] [address] [place] [address] PCP - General Family Medicine 01/18/23 Jacquie Townsend PA [address] [facility] [address] [place] [address] PCP - ACO Reach 10/19/24 Melanie Gallegos LPN [address] [facility] [address] [place] [address] 05/03/25 05/07/25 documented as of this encounter
--- OUTSIDE RECORDS SUMMARY | 2025-05-17 13:50 | XMS_ITS | Encounter Summary ---
Author Organization [facility] Address [address] [place] [address] Care Team Providers Care Stone Trimmer Name Role Phone Carrol Sethi MD Primary Care Provider [phone] Jacquie Townsend PA Unavailable [phone] Melanie Gallegos LPN Unavailable Encounter Details Date Type Department Care Team (Late Contact Info) Description 01/17/2025 Abstract [facility] [place] [facility] [address] [facility] [address] [place] [address] Carrol Sethi MD [address] [facility] 110 [place] [address] Social History Tobacco Use Types Packs/Day Years [...] PM EDT Office Visit [facility] [place] [facility] [address] [facility] 110 [place] [address] Jacquie Townsend PA [address] [facility] [address] [place] [address] documented as of this encounter Visit Diagnoses Not on filedocumented in this encounter Additional Health Concerns Assessment Noted Time PHQ-9 Depression Total Score: 0 01/17/20 25 2:00 PM EDT documented as of this encounter Care Teams Stone Trimmer Relationship Specialty Start Date End Date Carrol Sethi MD [address] [facility] [address] [place] [address] PCP - General Family Medicine 01/18/23 Jacquie Townsend PA [address] [facility] [address] [place] [address] PCP - ACO Reach 10/19/24 Melanie Gallegos LPN [address] [facility] [address] [place] [address] 05/03/25 05/07/25 documented as of this encounter
--- OUTSIDE RECORDS SUMMARY | 2025-05-17 13:50 | XMS_ITS | Encounter Summary ---
Author Organization [facility] Address [address] [place] [address] Care Team Providers Care Charge Aide Name Role Phone Carrol Sethi MD Primary Care Provider [phone] Jacquie Townsend PA Unavailable [phone] Melanie Gallegos LPN Unavailable Encounter Details Date Type Department Care Team (Late Contact Info) Description 03/25/2025 Abstract [facility] [place] [facility] [address] [facility] [address] [place] [address] Carrol Sethi MD [address] [place] [address] Social History Tobacco Use Types Packs/Day Years Used Date Smoking Tobacco: Never Smokeless Tobacco: Never Alcohol Use Standard Drinks/Week Comments Not Currently 0 (1 standard drink = 0.6 oz pure alcohol) Caffeine intake: 1-2 cups per day coffee PHQ-2 Answer Date Recorded Patient Health Questionnaire-2 Score 0 02/19/2025 Sex and Gender Information Value Date Recorded [...] PM EDT Office Visit [facility] [place] [facility] [address] [facility] 110 [place] [address] Jacquie Townsend PA [address] [facility] [address] [place] [address] documented as of this encounter Visit Diagnoses Not on filedocumented in this encounter Additional Health Concerns Assessment Noted Time PHQ-9 Depression Total Score: 0 01/17/20 25 2:00 PM EDT documented as of this encounter Care Teams Charge Aide Relationship Specialty Start Date End Date Carrol Sethi MD [address] [facility] [address] [place] [address] PCP - General Family Medicine 01/18/23 Jacquie Townsend PA [address] [facility] [address] [place] [address] PCP - ACO Reach 10/19/24 Melanie Gallegos LPN [address] [facility] [address] [place] [address] 05/03/25 05/07/25 documented as of this encounter
--- OUTSIDE RECORDS SUMMARY | 2025-05-17 13:50 | XMS_ITS | Encounter Summary ---
Author Organization [facility] Address [address] [place] [address] Care Team Providers Care Wood Shop Teacher Name Role Phone Carrol Sethi MD Primary Care Provider [phone] Jacquie Townsend Unavailable [phone] Melanie Gallegos LPN Unavailable Encounter Details Date Type Department Care Team (Late st Contact Info) Description 04/09/2025 Abstract [facility] [place] [facility] [address] [facility] 110 [place] [address] Carrol Sethi MD [address] [facility] 110 [place] [address] Social History Tobacco Use Types Packs/Day Years [...] AM EDT documented as of this encounter Functional Status * Over the past 2 weeks, how often have you been bothered by any of the following problems? Question Answer Date of Assessment Author Little interest or pleasure in doing things Not at all 04/09/2025 4:25 PM EDT Ernie, Danelle, LP N Feeling down, depressed, or hopeless Not at all 04/09/2025 4:25 PM EDT Danelle Klein LP N Patient Health Questionnaire -2 Score 0 04/09/2025 4:25 PM EDT Danelle Klein LP N documented as of this encounter Plan of Treatment Upcoming Encounters Date Type Department Care Team (Late st Contact Info) Description 05/22/2025 3:00 PM EDT Office Visit [facility] [place] [address] [facility] [address] [place] [address] Jacquie Townsend PA [address] [facility] [address] [place] [address] documented as of this encounter Visit Diagnoses Not on filedocumented in this encounter Additional Health Concerns Assessment Noted Time PHQ-9 Depression Total Score: 0 01/17/20 2:00 PM EDT documented as of this encounter Care Teams Wood Shop Teacher Relationship Specialty Start Date End Date Carrol Sethi MD [address] [facility] [address] [place] [address] PCP - General Family Medicine 01/18/23 Jacquie Townsend PA [address] [facility] [address] [place] [address] PCP - ACO Reach 10/19/24 Melanie Gallegos LPN [address] [facility] [address] [place] [address] 05/03/25 05/07/25 documented as of this encounter
--- OUTSIDE RECORDS SUMMARY | 2025-05-17 13:50 | XMS_ITS | Encounter Summary ---
Author Organization [facility] Address [address] [place] [address] Care Team Providers Care Tooth Cutter Spur Name Role Phone Carrol Sethi MD Primary Care Provider [phone] Jacquie Townsend PA Unavailable [phone] Melanie Gallegos LPN Unavailable Encounter Details Date Type Department Care Team (Late Contact Info) Description 04/04/2025 Abstract [facility] [place] [facility] [address] [facility] [address] [place] [address] Carrol Sethi MD [address] [facility] 110 [place] [address] Social History Tobacco Use Types Packs/Day Years [...] PM EDT Office Visit [facility] [place] [facility] [address] [facility] 110 [place] [phone] Jacquie Townsend PA [address] [facility] [address] [place] [address] documented as of this encounter Visit Diagnoses Not on filedocumented in this encounter Additional Health Concerns Assessment Noted Time PHQ-9 Depression Total Score: 0 01/17/20 25 2:00 PM EDT documented as of this encounter Care Teams Tooth Cutter Spur Relationship Specialty Start Date End Date Carrol Sethi MD [address] [facility] [address] [place] [address] PCP - General Family Medicine 01/18/23 Jacquie Townsend PA [address] [facility] [address] [place] [address] PCP - ACO Reach 10/19/24 Melanie Gallegos LPN [address] [facility] [address] [place] [address] 05/03/25 05/07/25 documented as of this encounter
--- OUTSIDE RECORDS SUMMARY | 2025-05-17 13:50 | XMS_ITS | Encounter Summary ---
Author Organization [facility] Address [address] [place] [address] Care Team Providers Care Managing Attorney Name Role Phone Carrol Sethi MD Primary Care Provider [phone] Jacquie Townsend PA Unavailable [phone] Melanie Gallegos LPN Unavailable Encounter Details Date Type Department Care Team (Late Contact Info) Description 01/09/2025 Abstract [facility] [place] [address] [facility] 110 [place] [address] Carrol Sethi MD [address] [facility] 110 [place] [address] Social History Tobacco Use Types Packs/Day Years Used Date Smoking Tobacco: Never Smokeless Tobacco: Never Alcohol Use Standard Drinks/Week Comments Not Currently 0 (1 standard drink = 0.6 oz pure alcohol) Caffeine intake: 1-2 cups per day coffee PHQ-2 Answer Date Recorded Patient Health Questionnaire-2 Score 0 2024 Sex and Gender Information Value Date Recorded [...] PM EDT Office Visit [facility] [place] [facility] [address] [facility] 110 [place] [address] Jacquie Townsend PA [address] [facility] 110 [place] [address] documented as of this encounter Visit Diagnoses Not on filedocumented in this encounter Additional Health Concerns Assessment Noted Time PHQ-9 Depression Total Score: 0 01/16/20 24 1:00 PM EDT documented as of this encounter Care Teams Managing Attorney Relationship Specialty Start Date End Date Carrol Sethi MD [address] [facility] [address] [place] [address] PCP - General Family Medicine 01/18/23 Jacquie Townsend PA [address] [facility] 110 [place] [address] PCP - ACO Reach 10/19/24 Melanie Gallegos LPN [address] [facility] 110 [place] [address] 05/03/25 05/07/25 documented as of this encounter
--- OUTSIDE RECORDS SUMMARY | 2025-05-17 13:50 | XMS_ITS | Encounter Summary ---
Author Organization [facility] Address [address] [place] [address] Care Team Providers Care Vp Integrity Name Role Phone Carrol Sethi MD Primary Care Provider [phone] Jacquie Townsend PA Unavailable [phone] Melanie Gallegos LPN Unavailable Encounter Details Date Type Department Care Team (Late Contact Info) Description 03/21/2025 Abstract [facility] [place] [address] [facility] 110 [place] [address] Carrol Sethi MD [address] [facility] 110 [place] [address] Social History Tobacco Use Types Packs/Day Years [...] PM EDT Office Visit [facility] [place] [facility] [address] [facility] 110 [place] [address] Jacquie Townsend PA [address] [facility] [address] [place] [address] documented as of this encounter Visit Diagnoses Not on filedocumented in this encounter Additional Health Concerns Assessment Noted Time PHQ-9 Depression Total Score: 0 01/17/20 25 2:00 PM EDT documented as of this encounter Care Teams Vp Integrity Relationship Specialty Start Date End Date Carrol Sethi MD [address] [facility] [address] [place] [address] PCP - General Family Medicine 01/18/23 Jacquie Townsend PA [address] [facility] 110 [place] [address] PCP - ACO Reach 10/19/24 Melanie Gallegos LPN [address] [facility] [address] [place] [address] 05/03/25 05/07/25 documented as of this encounter
--- OUTSIDE RECORDS SUMMARY | 2025-05-17 13:50 | XMS_ITS | Encounter Summary ---
Author Organization [facility] Address [address] [place] [address] Care Team Providers Care Blackener Name Role Phone Carrol Sethi MD Primary Care Provider [phone] Jacquie Townsend Unavailable [phone] Melanie Gallegos LPN Unavailable Encounter Details Date Type Department Care Team (Late Contact Info) Description 04/24/2025 Abstract [facility] [address] [place] [id number] Solitario Simmons, DPM FACFAS [address] [facility] [place] [address] Social History Tobacco Use Types [...] 3:00 PM EDT Office Visit [facility] [place] [facility] 112 [facility] [address] [place] [id number] Jacquie Townsend PA [address] [facility] 110 [place] [address] documented as of this encounter Visit Diagnoses Not on filedocumented in this encounter Additional Health Concerns Assessment Noted Time PHQ-9 Depression Total Score: 0 01/17/20 25 2:00 PM EDT documented as of this encounter Care Teams Blackener Relationship Specialty Start Date End Date Carrol Sethi MD [address] [facility] 110 [place] [address] PCP - General Family Medicine 01/18/23 Jacquie Townsend PA [address] [facility] 110 [place] [address] PCP - ACO Reach 10/19/24 Melanie Gallegos LPN [address] [facility] [address] [place] [address] 05/03/25 05/07/25 documented as of this encounter
--- OUTSIDE RECORDS SUMMARY | 2025-05-17 13:50 | XMS_ITS | Encounter Summary ---
Author Organization [facility] Address [address] [place] [address] Care Team Providers Care Leasing Machine Tender Name Role Phone Carrol Sethi MD Primary Care Provider [phone] Jacquie Townsend PA Unavailable [phone] Melanie Gallegos LPN Unavailable Encounter Details Date Type Department Care Team (Late Contact Info) Description 01/09/2025 Abstract [facility] [place] [facility] [address] [facility] [address] [place] [address] Carrol Sethi MD [address] [facility] 110 [place] [address] Social History Tobacco Use Types Packs/Day Years [...] PM EDT Office Visit [facility] [place] [facility] [address] [facility] 110 [place] [address] Jacquie Townsend PA [address] [facility] 110 [place] [address] documented as of this encounter Visit Diagnoses Not on filedocumented in this encounter Additional Health Concerns Assessment Noted Time PHQ-9 Depression Total Score: 0 01/16/20 24 1:00 PM EDT documented as of this encounter Care Teams Leasing Machine Tender Relationship Specialty Start Date End Date Carrol Sethi MD [address] [facility] 110 [place] [address] PCP - General Family Medicine 01/18/23 Jacquie Townsend PA [address] [facility] 110 [place] [address] PCP - ACO Reach 10/19/24 Melanie Gallegos LPN [address] [facility] [address] [place] [address] 05/03/25 05/07/25 documented as of this encounter
--- OUTSIDE RECORDS SUMMARY | 2025-05-17 13:50 | XMS_ITS | Encounter Summary ---
Author Organization [facility] Address [address] [place] [address] Care Team Providers Care Park Police Name Role Phone Carrol Sethi MD Primary Care Provider [phone] Jacquie Townsend PA Unavailable [phone] Melanie Gallegos LPN Unavailable Encounter Details Date Type Department Care Team (Late Contact Info) Description 04/04/2025 Abstract [facility] [place] [address] [facility] 110 [place] [address] Carrol Sethi MD [address] [facility] 110 [place] [address] Social History Tobacco Use Types Packs/Day Years [...] PM EDT Office Visit [facility] [place] [facility] [address] [facility] 110 [place] [address] Jacquie Townsend PA [address] [facility] [address] [place] [address] documented as of this encounter Visit Diagnoses Not on filedocumented in this encounter Additional Health Concerns Assessment Noted Time PHQ-9 Depression Total Score: 0 01/17/20 25 2:00 PM EDT documented as of this encounter Care Teams Park Police Relationship Specialty Start Date End Date Carrol Sethi MD [address] [facility] [address] [place] [address] PCP - General Family Medicine 01/18/23 Jacquie Townsend PA [address] [facility] [address] [place] [address] PCP - ACO Reach 10/19/24 Melanie Gallegos LPN [address] [facility] 110 [place] [address] 05/03/25 05/07/25 documented as of this encounter
--- OUTSIDE RECORDS SUMMARY | 2025-05-17 13:50 | XMS_ITS | Encounter Summary ---
Author Organization [facility] Address [address] [place] [address] Care Team Providers Care Road Machine Operator Name Role Phone Carrol Sethi MD Primary Care Provider [phone] Jacquie Townsend PA Unavailable [phone] Melanie Gallegos LPN Unavailable Encounter Details Date Type Department Care Team (Late Contact Info) Description 04/03/2025 Abstract [facility] [place] [address] [facility] 110 [place] [address] Carrol Sethi MD [address] [facility] 110 [place] [address] Social History Tobacco Use Types Packs/Day Years [...] PM EDT Office Visit [facility] [place] [facility] [address] [facility] 110 [place] [address] Jacquie Townsend PA [address] [facility] 110 [place] [address] documented as of this encounter Visit Diagnoses Not on filedocumented in this encounter Additional Health Concerns Assessment Noted Time PHQ-9 Depression Total Score: 0 01/17/20 25 2:00 PM EDT documented as of this encounter Care Teams Road Machine Operator Relationship Specialty Start Date End Date Carrol Sethi MD [address] [facility] 110 [place] [address] PCP - General Family Medicine 01/18/23 Jacquie Townsend PA [address] [facility] 110 [place] [address] PCP - ACO Reach 10/19/24 Melanie Gallegos LPN [address] [facility] [address] [place] [address] 05/03/25 05/07/25 documented as of this encounter
--- OUTSIDE RECORDS SUMMARY | 2025-05-17 13:50 | XMS_ITS | Encounter Summary ---
Author Organization [facility] Address [address] [place] [address] Care Team Providers Care Rental Coordinator Name Role Phone Carrol Sethi MD Primary Care Provider [phone] Jacquie Townsend PA Unavailable [phone] Melanie Gallegos LPN Unavailable Encounter Details Date Type Department Care Team (Late Contact Info) Description 01/09/2025 Abstract [facility] [place] [address] [facility] 110 [place] [address] Carrol Sethi MD [address] [facility] 110 [place] [address] Social History Tobacco Use Types Packs/Day Years [...] PM EDT Office Visit [facility] [place] [facility] [address] [facility] 110 [place] [address] Jacquie Townsend PA [address] [facility] [address] [place] [address] documented as of this encounter Visit Diagnoses Not on filedocumented in this encounter Additional Health Concerns Assessment Noted Time PHQ-9 Depression Total Score: 0 01/16/20 24 1:00 PM EDT documented as of this encounter Care Teams Rental Coordinator Relationship Specialty Start Date End Date Carrol Sethi MD [address] [facility] [address] [place] [address] PCP - General Family Medicine 01/18/23 Jacquie Townsend PA [address] [facility] [address] [place] [address] PCP - ACO Reach 10/19/24 Melanie Gallegos LPN [address] [facility] [address] [place] [address] 05/03/25 05/07/25 documented as of this encounter
--- OUTSIDE RECORDS SUMMARY | 2025-05-17 13:50 | XMS_ITS | Encounter Summary ---
Author Organization [facility] Address [address] [place] [address] Care Team Providers Care Wastewater Treatment Plant Chemist Name Role Phone Carrol Sethi MD Primary Care Provider [phone] Jacquie Townsend PA Unavailable [phone] Melanie Gallegos LPN Unavailable Encounter Details Date Type Department Care Team (Late Contact Info) Description 03/21/2025 Abstract [facility] [place] [address] [facility] 110 [place] [address] Carrol Sethi MD [address] [facility] 110 [place] [address] Social History Tobacco Use Types Packs/Day Years [...] PM EDT Office Visit [facility] [place] [facility] [address] [facility] 110 [place] [address] Jacquie Townsend PA [address] [facility] 110 [place] [address] documented as of this encounter Visit Diagnoses Not on filedocumented in this encounter Additional Health Concerns Assessment Noted Time PHQ-9 Depression Total Score: 0 01/17/20 25 2:00 PM EDT documented as of this encounter Care Teams Wastewater Treatment Plant Chemist Relationship Specialty Start Date End Date Carrol Sethi MD [address] [facility] 110 [place] [address] PCP - General Family Medicine 01/18/23 Jacquie Townsend PA [address] [facility] 110 [place] [address] PCP - ACO Reach 10/19/24 Mleanie Gallegos LPN [address] [facility] [address] [place] [address] 05/03/25 05/07/25 documented as of this encounter
--- OUTSIDE RECORDS SUMMARY | 2025-05-17 13:50 | XMS_ITS | Encounter Summary ---
Author Organization [facility] Address [address] [place] [address] Care Team Providers Care Lead Electrician Name Role Phone Carrol Sethi MD Primary Care Provider Jacquie Townsend PA Unavailable [phone] Melanie Gallegos LPN Unavailable Encounter Details Date Type Department Care Team (Late Contact Info) Description 01/21/2025 Abstract [facility] [place] [address] [facility] 110 [place] [address] Carrol Sethi MD [address] [facility] 110 [place] [address] Social History Tobacco Use Types Packs/Day Years [...] PM EDT Office Visit [facility] [place] [facility] [address] [facility] 110 [place] [address] Jacquie Townsend PA [address] [facility] 110 [place] [address] documented as of this encounter Visit Diagnoses Not on filedocumented in this encounter Additional Health Concerns Assessment Noted Time PHQ-9 Depression Total Score: 0 01/17/20 25 2:00 PM EDT documented as of this encounter Care Teams Lead Electrician Relationship Specialty Start Date End Date Carrol Sethi MD [address] [facility] 110 [place] [address] PCP - General Family Medicine 01/18/23 Jacquie Townsend PA [address] [facility] 110 [place] [address] PCP - ACO Reach 10/19/24 Melanie Gallegos LPN [address] [facility] [address] [place] [address] 05/03/25 05/07/25 documented as of this encounter
--- OUTSIDE RECORDS SUMMARY | 2025-05-17 13:50 | XMS_ITS | Encounter Summary ---
Author Organization [facility] Address [address] [place] [address] Care Team Providers Care Pharmacist Intern Name Role Phone Carrol Sethi MD Primary Care Provider [phone] Jacquie Townsend PA Unavailable [phone] Melanie Gallegos LPN Unavailable Encounter Details Date Type Department Care Team (Late Contact Info) Description 01/21/2025 Abstract [facility] [place] [address] [facility] 110 [place] [address] Carrol Sethi MD [address] [facility] 110 [place] [address] Social History Tobacco Use Types Packs/Day Years [...] PM EDT Office Visit [facility] [place] [facility] [address] [facility] 110 [place] [address] Jacquie Townsend PA [address] [facility] 110 [place] [address] documented as of this encounter Visit Diagnoses Not on filedocumented in this encounter Additional Health Concerns Assessment Noted Time PHQ-9 Depression Total Score: 0 01/17/20 25 2:00 PM EDT documented as of this encounter Care Teams Pharmacist Intern Relationship Specialty Start Date End Date Carrol Sethi MD [address] [facility] 110 [place] [address] PCP - General Family Medicine 01/18/23 Jacquie Townsend PA [address] [facility] [address] [place] [address] PCP - ACO Reach 10/19/24 Melanie Gallegos LPN [address] [facility] 110 [place] [address] 05/03/25 05/07/25 documented as of this encounter
--- OUTSIDE RECORDS SUMMARY | 2025-05-17 13:51 | XMS_ITS ---
Author Organization [facility] Address [address] [place] [address] Care Team Providers Care Custody Officer Name Role Phone Carrol Sethi MD Primary Care Provider Jacquie Townsend Unavailable [phone] Emergency Department Transitional Care Management (TCM) Status:Closed (Closed) Start date:05/13/2025 Enrollment date:05/14/2025 Enrollment reason:Identified using hospital discharge data End date:05/14/2025 Close reason:Assistance not needed Overview Discharged from [facility] on 05/13. Please contact within 2 days of discharge for ER MILENA and schedule a follow-up appointment if needed. Continued Care and Services Coordination
--- OUTSIDE RECORDS SUMMARY | 2025-05-17 13:51 | XMS_ITS | Encounter Summary ---
Author Organization [facility] Address [address] [place] [address] Care Team Providers Care Pastry Cook Name Role Phone Carrol Sethi MD Primary Care Provider [phone] Jacquie Townsend Unavailable [phone] Melanie Gallegos LPN Unavailable Encounter Details Date Type Department Care Team (Latest Contact Info) Description 05/06/2025 Travel Social History Tobacco Use Types Packs/Day Years [...] Upcoming Encounters Date Type Department Care Team ([facility] Contact Info) Description 05/22/2025 3:00 PM EDT Office Visit [facility] [place] [address] [facility] [address] [place] [address] Jacquie Townsend PA [address] [facility] 110 [place] [address] documented as of this encounter Visit Diagnoses Not on filedocumented in this encounter Additional Health Concerns Assessment Noted Time PHQ-9 Depression Total Score: 0 01/17/20 2:00 PM EDT documented as of this encounter Care Teams Pastry Cook Relationship Specialty Start Date End Date Carrol Sethi MD [address] [facility] 110 [place] [address] PCP - General Family Medicine 01/18/23 Jacquie Townsend PA [address] [facility] 110 [place] [address] PCP - ACO Reach 10/19/24 Melanie Gallegos LPN [address] [facility] 110 [place] [address] 05/03/25 05/07/25 documented as of this encounter
--- OUTSIDE RECORDS SUMMARY | 2025-05-17 13:51 | XMS_ITS | Encounter Summary ---
Author Organization [facility] Address [address] [place] [address] Care Team Providers Care Senior Project Manager Engineering Name Role Phone Carrol Sethi MD Primary Care Provider [phone] Jacquie Townsend PA Unavailable [phone] Melanie Gallegos LPN Unavailable Encounter Details Date Type Department Care Team (Late Contact Info) Description 02/16/2024 Abstract [facility] [place] [address] [facility] 110 [place] [address] Carrol Sethi MD [address] [facility] 110 [place] [address] Social History Tobacco Use Types Packs/Day Years [...] PM EDT Office Visit [facility] [place] [facility] [address] [facility] 110 [place] [address] Jacquie Townsend PA [address] [facility] 110 [place] [address] documented as of this encounter Visit Diagnoses Not on filedocumented in this encounter Additional Health Concerns Assessment Noted Time PHQ-9 Depression Total Score: 0 01/16/20 24 1:00 PM EDT documented as of this encounter Care Teams Senior Project Manager Engineering Relationship Specialty Start Date End Date Carrol Sethi MD [address] [facility] [address] [place] [address] PCP - General Family Medicine 01/18/23 Jacquie Townsend PA [address] [facility] 110 [place] [address] PCP - ACO Reach 10/19/24 Melanie Gallegos LPN [address] [facility] [address] [place] [address] 05/03/25 05/07/25 documented as of this encounter
--- OUTSIDE RECORDS SUMMARY | 2025-05-17 13:51 | XMS_ITS | Encounter Summary ---
Author Organization [facility] Address [address] [place] [address] Care Team Providers Care Commercial Lending Assistant Name Role Phone Carrol Sethi MD Primary Care Provider [phone] Jacquie Townsend PA Unavailable [phone] Melanie Gallegos LPN Unavailable Encounter Details Date Type Department Care Team (Late Contact Info) Description 04/15/2025 Abstract [facility] [place] [address] [facility] 110 [place] [address] Carrol Sethi MD [address] [facility] 110 [place] [address] Social History Tobacco Use Types Packs/Day Years [...] Office Visit [facility] [place] [facility] [address] [facility] 110 [place] [address] Jacquie Townsend PA [address] [facility] [address] [place] [address] documented as of this encounter Visit Diagnoses Not on filedocumented in this encounter Additional Health Concerns Assessment Noted Time PHQ-9 Depression Total Score: 0 01/17/20 25 2:00 PM EDT documented as of this encounter Care Teams Commercial Lending Assistant Relationship Specialty Start Date End Date Carrol Sethi MD [address] [facility] [address] [place] [address] PCP - General Family Medicine 01/18/23 Jacquie Townsend PA [address] [facility] [address] [place] [address] PCP - ACO Reach 10/19/24 Melanie Gallegos LPN [address] [facility] [address] [place] [address] 05/03/25 05/07/25 documented as of this encounter
--- OUTSIDE RECORDS SUMMARY | 2025-05-17 13:51 | XMS_ITS | Encounter Summary ---
Author Organization [facility] Address [address] [place] [address] Care Team Providers Care Shoe Repair Supervisor Name Role Phone Carrol Sethi MD Primary Care Provider [phone] Jacquie Townsend Unavailable Melanie Gallegos LPN Unavailable Encounter Details Date Type Department Care Team (Late st Contact Info) Description 05/06/2025 Patient Outreach [facility] [address] [place] [id number] Melanie Gallegos LPN [address] [facility] [address] [place] [address] Social History Tobacco Use Types Packs/Day Years [...] as of this encounter Progress Notes * Melanie Gallegos LPN - 05/06/2025 2:20 PM EDT Met with pt in office to talk about CCM and patient assistance, Pt not interested in CCM at this time, but would like help with patient assistance for insulin. Residential Roofer goes over application and fills out with pt while in office. I let pt know that if he changes his mind and would like CCM services he may call me and he can get enrolled. I give pt my name and number to reach me. Teresa nordisk PAP application completed with pt and faxed to [employer] documented in this encounter Plan of Treatment Upcoming Encounters Date Type Department Care Team (Late st Contact Info) Description 05/22/2025 3:00 PM EDT Office Visit [facility] [address] [facility] [address] [place] [address] Jacquie Townsend PA [address] [facility] [address] [place] [address] documented as of this encounter Visit Diagnoses Diagnosis Type 2 diabetes mellitus with other specified complication, with long-term current use of insulin (HCC)- Primary Other chronic pain documented in this encounter Additional Health Concerns Assessment Noted Time PHQ-9 Depression Total Score: 0 01/17/20 2:00 PM EDT documented as of this encounter Care Teams Shoe Repair Supervisor Relationship Specialty Start Date End Date Carrol Sethi MD [address] [facility] [address] [place] [address] PCP - General Family Medicine 01/18/23 Jacquie Townsend PA [address] [facility] [address] [place] [address] PCP - ACO Reach 10/19/24 Melanie Gallegos LPN [address] [facility] [address] [place] [address] 05/03/25 05/07/25 documented as of this encounter
--- OUTSIDE RECORDS SUMMARY | 2025-05-17 13:51 | XMS_ITS | Encounter Summary ---
Author Organization [facility] Address [address] [place] [address] Care Team Providers Care Jira Developer Name Role Phone Carrol Sethi MD Primary Care Provider [phone] Jacquie Townsend PA Unavailable [phone] Melanie Gallegos LPN Unavailable Encounter Details Date Type Department Care Team (Late Contact Info) Description 05/06/2025 Bamboo flowsheet [facility] [address] [facility] [address] [place] [address] Jacquie Townsend PA [address] [facility] [address] [place] [address] Social History Tobacco Use Types Packs/Day Years [...] PM EDT Office Visit [facility] [place] [address] [place] [address] [place] [id number] Jacquie Townsend PA [address] [facility] [address] [place] [address] documented as of this encounter Visit Diagnoses Not on filedocumented in this encounter Additional Health Concerns Assessment Noted Time PHQ-9 Depression Total Score: 0 01/17/20 25 2:00 PM EDT documented as of this encounter Care Teams Jira Developer Relationship Specialty Start Date End Date Carrol Sethi MD [address] [facility] [address] [place] [address] PCP - General Family Medicine 01/18/23 Jacquie Townsend PA [address] [facility] [address] [place] [address] PCP - ACO Reach 10/19/24 Melanie Gallegos LPN [address] [facility] [address] [place] [address] 05/03/25 05/07/25 documented as of this encounter
--- OUTSIDE RECORDS SUMMARY | 2025-05-17 13:51 | XMS_ITS ---
Author Organization [facility] Address [address] [place] [address] Care Team Providers Care Ent Surgeon Name Role Phone Carrol Sethi MD Primary Care Provider Jacquie Townsend PA Unavailable [phone] Chronic Care Management (CCM) Status:Declined (Declined) Start date:05/03/2025 Enrollment reason:Identified as high-risk End date:05/07/2025 Decline reason:Patient declined Continued Care and Services Coordination
--- OUTSIDE RECORDS SUMMARY | 2025-05-17 13:51 | XMS_ITS | Clinical Summary ---
Author Organization [facility] Healthcare Address [address] [place] [address] Care Team Providers Care Soaker Meat Name Role Phone Carrol Sethi MD Primary Care Provider [phone] Jacquie Townsend Unavailable [phone] Allergies Active Allergy Reactions Criticality Noted Date Comments Cat Dander 04/05/2025 Medications Acetaminophen 500 MG capsule Take 2 tablets by mouth every 6 (six) hours if needed for mild pain. Active sennosides (Senokot) 8.6 MG tablet Take 2 tablets by mouth as needed at bedtime for constipatio n. Active sertraline (Zoloft) 100 MG tabletIndication s:Moderate episode of recurrent major depressive disorder (HCC) Take 1 tablet (100 mg) by mouth Daily 100 tablet 3 01/16/20 24 Active QUEtiapine (SEROquel) 100 MG tabletIndication s:Moderate episode of recurrent major depressive disorder (HCC) Take 1 tablet (100 mg) by mouth at bedtime 100 tablet 3 01/16/20 24 Active OXcarbazepine (Trileptal) 150 MG tabletIndication s:Polyneuropathy Take 1 tablet (150 mg) by mouth in the morning and 1 tablet (150 mg) before bedtime. 200 tablet 3 01/16/20 24 Active lamoTRIgine (LaMICtal) 100 MG tabletIndication s:Polyneuropathy Take 1 tablet (100 mg) by mouth Daily 100 tablet 3 01/16/20 24 Active gabapentin (Neurontin) 100 MG capsuleIndicatio ns:Polyneuropath y Take 1 capsule (100 mg) by mouth in the morning and 1 capsule (100 mg) in the evening and 1 capsule (100 mg) before bedtime. Take with 800 mg dosage. 90 capsule 5 01/16/20 24 Active cholecalciferol (Vitamin D-3) 125 MCG (5000 UT) capsuleIndicatio ns:Vitamin D deficiency Take 1 capsule (125 mcg) by mouth Daily 100 capsule 3 01/16/20 24 Active glucose 4 g chewable tabletIndication s:Hypoglycemic episode in patient with diabetes mellitus (HCC) Chew 4 tablets (16 g) if needed for low blood sugar 40 tablet 2 01/16/20 24 Active gabapentin (Neurontin) 800 MG tabletIndication s:Polyneuropathy TAKE 1 TABLET BY MOUTH EVERY MORNING TAKE ONE TABLET BY MOUTH EVERY EVENING AND TAKE 1 TABLET BY MOUTH AT BEDTIME 90 tablet 5 08/08/20 24 Active apixaban (Eliquis) 5 MG tabletIndication s:History of pulmonary embolism Take 1 tablet (5 mg) by mouth in the morning and 1 tablet (5 mg) before bedtime. 60 tablet 09/07/20 24 Active potassium chloride CR (Klor-Con M10) 10 MEQ ER tabletIndication s:Pitting edema Take 1 tablet (10 mEq) by mouth Daily Do not crush or chew. 90 tablet 3 01/17/20 25 026 Active permethrin (Elimite) 5 % cream 04/05/20 25 Active metoprolol tartrate (Lopressor) 25 MG tabletIndication s:Primary hypertension Take 1 tablet (25 mg) by mouth in the morning. with food. 04/09/20 25 Active furosemide (Lasix) 20 MG tabletIndication s:Pitting edema Take 1 tablet (20 mg) by mouth in the morning. 04/09/20 25 026 Active insulin degludec (Tresiba FlexTouch) 200 UNIT/ML injectionIndicat ions:Type 2 diabetes mellitus with other specified complication, with long-term current use of insulin (HCC) Inject 10 Units under the skin at bedtime 3 mL 04/09/20 25 026 Active Elastic Bandages & Supports (Medical Compression Stockings) miscIndications: Pitting edema 2 each Daily On in AM, off in PM. Dispense 2 pairs. 20-30 mmHg. 2 each 1 04/24/20 25 Active Continuous Glucose Sensor (FreeStyle Austin 3 Plus Sensor) miscIndications: Type 2 diabetes mellitus with other specified complication, with long-term current use of insulin (HCC) 1 each every 14 (fourteen) days 12 each 04/25/20 25 Active Glucose Blood (Blood Glucose Test) stripIndications :Type 2 diabetes mellitus with other specified complication, with long-term current use of insulin (HCC) 1 each by In Vitro route Daily 100 strip 3 05/06/20 Active QUEtiapine (SEROquel) 25 MG tabletIndication s:Moderate episode of recurrent major depressive disorder (HCC) Take 1 tablet (25 mg) by mouth at bedtime Take with the 100 mg tablet 30 tablet 2 05/06/20 Active Continuous Glucose Chuck Wagon Driver (FreeStyle Austin 2 [place]) deviceIndication s:Type 2 diabetes mellitus with other specified complication, with long-term current use of insulin ([facility]) 1 each by Other route Daily Use as directed 1 each 02/20/20 24 025 Discontinued Continuous Glucose Sensor (FreeStyle Austin 2 Sensor) miscIndications: Type 2 diabetes mellitus with other specified complication, with long-term current use of insulin ([facility]) Inject 1 each under the skin every 14 (fourteen) days Use as directed 6 each 3 02/20/20 24 025 Discontinued(Th erapy completed) amoxicillin-clav ulanate (Augmentin) 875-125 MG tablet Take 1 tablet by mouth in the morning and 1 tablet before bedtime. 04/05/20 25 025 Discontinued(Ot her) Continuous Glucose Sensor (FreeStyle Austin 2 Plus Sensor) miscIndications: Type 2 diabetes mellitus with other specified complication, with long-term current use of insulin ([facility]) 1 each every 14 (fourteen) days 6 each 3 04/23/20 25 025 Discontinued Continuous Glucose Chuck Wagon Driver (Dexcom G7 Chuck Wagon Driver) deviceIndication s:Type 2 diabetes mellitus with other specified complication, with long-term current use of insulin ([facility]) 1 each Daily 1 each 04/24/20 25 025 Discontinued Continuous Glucose Sensor (Dexcom G7 Sensor) miscIndications: Type 2 diabetes mellitus with other specified complication, with long-term current use of insulin ([facility]) 1 each Every 10 (ten) days 9 each 3 04/24/20 25 025 Discontinued oxyCODONE-acetam inophen (Percocet) 5-325 MG tablet Take 1 tablet by mouth every 6 (six) hours if needed 05/13/20 25 025 Active Problems Problem Noted Date Diagnosed Date Impaired mobility and ADLs 02/13/2024 Weakness 02/13/2024 Overweight (BMI 25.0-29.9) 02/13/2024 Hypoglycemic episode in patient with diabetes me llitus 2024 AKBAR positive 04/23/2023 Anxiety 04/23/2023 Bilateral lower extremity edema 04/04/2023 Chronic pain 04/04/2023 Complex regional pain syndrome type I 04/04/2023 Cyanocobalamin deficiency 04/04/2023 Hyperlipidemia 04/04/2023 Hypertension 04/04/2023 Insomnia 04/04/2023 Myalgia 04/04/2023 Drug-induced erectile dysfunction 04/04/2023 Depression 04/04/2023 Frequent falls 04/04/2023 Polyneuropathy 04/04/2023 Type 2 diabetes mellitus, wi th long-term current use of insulin 04/04/2023 Vitamin D deficiency 04/04/2023 History of DVT (deep vein thrombosis) 12/02/2021 History of pulmonary embolism 09/09/2021 Resolved Problems Problem Noted Date Diagnosed Date Resolved Date Rectal hemorrhage 02/13/2024 02/13/2024 Pulmonary embolism 02/13/2024 Obesity (BMI 30-39.9) 04/04/20232023 Impotence of organic origin 12/13/2018 2024 Encounters Date Type Department Care Team Description 05/14/2025 Patient Outreach [facility] [address] [place] [address] Melanie Gallegos LPN 05/06/2025 1:30 PM EDT Office Visit [facility] [place] [facility] [address] [place] [address] Jacquie Townsend, PA Type 2 diabetes mellitus with other specified complication, with long-term current use of insulin (HCC) (Primary Dx); Complex regional pain syndrome type 1, affecting unspecified site; Primary hypertension ; Primary insomnia; Moderate episode of recurrent major depressive disorder (HCC) 05/06/2025 Patient Outreach [facility] [address] [place] [address] Melanie Gallegos LPN 05/06/2025 Bamboo flowsheet [facility] [place] [facility] [address] [facility] [address] [place] [address] Jacquie Townsend PA 05/06/2025 Travel 04/25/2025 Telephone [facility] [place] [facility] [address] [facility] [address] [place] [address] Carrol Sethi MD 04/25/2025 Abstract [facility] [place] [facility] [address] [facility] [address] [place] [address] Carrol Sethi MD 04/25/2025 Abstract [facility] [place] [facility] [address] [facility] [address] [place] [address] Carrol Sethi MD 04/24/2025 Abstract [facility] [address] [place] [address] Dolce, Solitario R, DPM FACFAS 04/24/2025 Abstract [facility] [address] [place] [phone] Dolce, Solitario R, DPM FACFAS 04/23/2025 Telephone [facility] [place] [facility] [address] [facility] [address] [place] [address] Carrol Sethi MD Med Refill 04/23/2025 Orders Only [facility] [place] [facility] [address] [facility] [address] [place] [address] Jacquie Townsend PA Type 2 diabetes mellitus with other specified complication, with long-term current use of insulin (HCC) 04/15/2025 Telephone [facility] [place] [facility] [address] [facility] [address] [place] [address] Carrol Sethi MD 04/15/2025 Abstract [facility] [place] [facility] [address] [facility] [address] [place] [address] Carrol Sethi MD 04/12/2025 Abstract [facility] [address] [place] [address] Solitario Simmons, DPM FACFAS 04/09/2025 4:30 PM EDT Office Visit [facility] [place] [facility] [address] [facility] [address] [place] [address] Jacquie Townsend, PA Type 2 diabetes mellitus with other specified complication, with long-term current use of insulin (HCC) (Primary Dx); Primary hypertension ; Pitting edema; Abnormal weight loss; Primary insomnia; Frequent falls; Moderate episode of recurrent major depressive disorder (HCC); Impaired mobility and ADLs; Open wound of left lower leg with complication, subsequent encounter; Cellulitis of left lower leg 04/09/2025 Travel 04/09/2025 Abstract [facility] [place] [facility] [address] [facility] [address] [place] [address] Carrol Sethi MD 04/04/2025 [facility] [address] [facility] [address] [place] [address] Carrol Sethi MD 04/04/2025 Abstract [facility] [place] [facility] [address] [facility] [address] [place] [address] Carrol Sethi MD 04/03/2025 Abstract [facility] [place] [facility] [address] [facility] [address] [place] [address] Carrol Sethi MD 04/01/2025 Telephone [facility] [place] [facility] [address] [facility] [address] [place] [address] Jacquie Townsned PA 03/25/2025 Abstract [facility] [place] [facility] [address] [facility] [address] [place] [address] Carrol Sethi MD 03/21/2025 Abstract [facility] [place] [place] [address] Carrol Sethi MD 03/21/2025 [facility] [place] [address] Carrol Sethi MD 02/19/2025 3:00 PM EDT Office Visit [facility] [place] [address] [address] [place] [address] Jacquie Townsend PA Primary hypertension (Primary Dx); Bilateral lower extremity edema; Type 2 diabetes mellitus with other specified complication, with long-term current use of insulin (HCC); Impaired mobility and ADLs; Frequent falls; History of DVT (deep vein thrombosis); History of pulmonary embolism 02/19/2025 Bamboo flowsheet [facility] [address] [address] [place] [address] Jacquie Townsend PA 02/19/2025 Travel from Last 3 Months Immunizations Immunization Administration Dates Next Due ABRYSVO - Respiratory syncyt ial virus (RSV), vaccine, bivalent, protein subunit RSV prefusion F, diluent reconstituted, 0.5 mL, PF 01/03/2025 Hep B, adult 06/25/2020 Influenza, Recombinant, inje ctable, preservative free 01/03/2025 Influenza, injectable, quadrivalent 12/02/2021,1 Influenza, recombinant, quad rivalent, injectable, preservative free 05/10/2023,06/25/2020,07/02/2019 Novel [id number], preservative-free 07/10 Pneumococcal Conjugate PCV 20 05/10/2023 Tdap 01/25/2019 Zoster, Recombinant 01/25/2019,11/02/2018 Family History Medical History Relation Name Comments Mental illness Father Parkinsonism Father Atrial fibrillation Mother Colon polyps Mother Diabetes Mother Heart disease Mother Hypertension Mother Stroke Mother Colon cancer Paternal Grandfather Relation Name Status Comments Brother Alive Daughter Alive Father Mother Paternal Grandfather Sister Alive Social History Tobacco Use Types Packs/Day Years Used Date Smoking Tobacco: Never Smokeless Tobacco: Never Tobacco Cessation:Counseling Given: Not Answered Alcohol Use Standard Drinks/Week Comments Not Currently [...] Orientation Straight 01/18/2024 4: 05 AM EDT Last Filed Vital Signs Vital Sign Reading Time Taken Comments Blood Pressure 148/84 05/06/2025 1:44 PM EDT Pulse 74 05/06/2025 1:44 PM EDT Temperature 37 C (98.6 F) 02/20/2024 2:07 PM EDT Respiratory Rate 16 05/06/2025 1:44 PM EDT Oxygen Saturation 97% 05/06/2025 1:44 PM EDT Inhaled Oxygen Concentration - - Weight 95.3 kg (210 lb 3.2 oz) 05/06/2025 1:44 P M EDT Height 186.7 cm (6' 1.5 ) 05/06/2025 1:44 PM EDT Body Mass Index 27.36 05/06/2025 1:44 PM EDT Plan of Treatment Upcoming Encounters Date Type Department Care Team (Late st Contact Info) Description 05/22/2025 3:00 PM EDT Office Visit [facility] [place] [facility] [address] [facility] [address] [place] [address] Jacquie Townsend PA 112 [facility] [address] [place] [address] Health Maintenance Due Date Last Done Comments CT Colonography 1963 Colonoscopy 1965 FIT 1963 FOBT 1965 Sigmoidoscopy 1963 Diabetes: Hemoglobin A1C 04/19/2025 05 025, 2024, 04/25/2023, Additional history exists Influenza Vaccine (#1) 2025 5, 05/10/2023, 12/02/2021, Additional history exists Medicare Annual Wellness (AWV) 2026 2025 , 2024 Diabetes: Urine Protein Screening 01/17/2026 01/17/2025, 02/24/2022, 11/03/2020, Additional history exists Diabetes: Retinopathy Screening 01/31/2026 Colorectal Cancer Screening 02/04/2027 FIT-DNA 02/04/2027 02/05/2024, 08/02/2020 Procedures Procedure Name Priority Date/Time Associated Diagnosis Comments MICROALBUMIN / CREATININE URINE RATIO Routine 01/17/2025 2:53 PM EDT Type 2 diabetes mellitus with other specified complication, with long-term current use of insulin (HCC) POCT GLYCATED HEMOGLOBIN, TOTAL Routine 01/17/2025 8:37 AM EDT Type 2 diabetes mellitus with other specified complication, with long-term current use of insulin (HCC) LAB COLOGUARD COLON CANCER SCREEN Routine 02/05/2024 1:12 PM EDT Screening for malignant neoplasm of colon DIABETIC RETINOPATHY SCREENING - OU - BOTH EYES Routine 02/01/2024 3:12 PM EDT from Last 3 Months or Most Recently Relevant to Health Maintenance Results * Microalbumin / creatinine urine ratio (01/17/2025 2:53 PM EDT) CREATININE, RANDOM URINE 145 20 - 320 mg/dL [facility] ALBUMIN, URINE <0.2 See Note: mg/dL [facility] Comment: Reference Range: Reference Range Not established ALBUMIN/CREATININE RATIO, RANDOM URINE NOTE <30 mg/g creat [facility] Comment: NOTE: The urine albumin value is less than 0.2 mg/dL therefore we are unable to calculate excretion and/or creatinine ratio. The ADA defines abnormalities in albumin excretion as follows: Albuminuria Category Result (mg/g creatinine) Normal to Mildly increased <30 Moderately increased 30-299 Severely increased > OR = 300 The ADA recommends that at least two of three specimens collected within a 3-6 month period be abnormal before considering a patient to be within a diagnostic category. Urine Urine specimen obtained by clean catch procedure / Unknown 01/17/2025 2:53 PM EDT 01/17/2025 2:54 PM EDT Narrative Resulting Agency Comment Performing Organization Information Site ID: QPT Name: [facility] Address: Rachael Van , [address] [place] [id number] Director: Mikey Lawson MD Jacquie CARVALHO LAB URINE ORDERABLES Final Res ult [facility] * (ABNORMAL) POCT Glycated hemoglobin, total (01/17/2025 8:37 AM EDT) Hemoglobin A1C 6.0 Blood 01/17/2025 8:37 AM EDT us Jacquie CARVALHO POINT OF CARE TEST ENTER/EDIT ORDERABLES Final Result * Cologuard?? colon cancer screening (02/05/2024 1:12 PM EDT) NONINV COLON CA DNA+OCC BLD SCRN STL-IMP Negative Negative 02/23/2024 10:41 AM EDT [employer] (CLIA #:[id number]) Comment: NEGATIVE TEST RESULT. A negative Cologuard result indicates a low likelihood that a colorectal cancer (CRC) or advanced adenoma (adenomatous polyps with more advanced pre-malignant features) is present. The chance that a person with a negative Cologuard test has a colorectal cancer is less than 1 in 1500 (negative predictive value >99.9%) or has an advanced adenoma is less than 5.3% (negative predictive value 94.7%). These data are based on a prospective cross-sectional study of 10,000 individuals at average risk for colorectal cancer who were screened with both Cologuard and colonoscopy. (Antonella Rangel al, N Engl J Med 2014;370(14):0024-9829) The normal value (reference range) for this assay is negative. COLOGUARD RE-SCREENING RECOMMENDATION: Periodic colorectal cancer screening is an important part of preventive healthcare for asymptomatic individuals at average risk for colorectal cancer. Following a negative Cologuard result, the [place] Cancer Society and U.S. Multi-Society Task Force screening guidelines recommend a Cologuard re-screening interval of 3 years. References: [place] [employer] Guideline for Colorectal Cancer Screening: https://www.cancer.org/cancer/czgia-iombjg-aciywp/shofeoldk-djlrqxdtr-iqvnric/ac s-rec ommendations.html.; Nathan DK, Cheikh CR, Wilda LariosK, Colorectal Cancer Screening: Recommendations for Physicians and Patients from the U.S. Multi-Society Task Force on Colorectal Cancer Screening , Am J Gastroenterology 2017; 112:4133-1527. TEST DESCRIPTION: Composite algorithmic analysis of stool DNA-biomarkers with hemoglobin immunoassay. Quantitative values of individual biomarkers are not reportable and are not associated with individual biomarker result reference ranges. Cologuard is intended for colorectal cancer screening of adults of either sex, 45 years or older, who are at average-risk for colorectal cancer (CRC). Cologuard has been approved for use by the U.S. FDA. The performance of Cologuard was established in a cross sectional study of average-risk adults aged 50-84. Cologuard performance in patients ages 45 to 49 years was estimated by sub-group analysis of near-age groups. Colonoscopies performed for a positive result may find as the most clinically significant lesion: colorectal cancer [4.0%], advanced adenoma (including sessile serrated polyps greater than or equal to 1cm diameter) [20%] or non- advanced adenoma [31%]; or no colorectal neoplasia [45%]. These estimates are derived from a prospective cross-sectional screening study of 10,000 individuals at average risk for colorectal cancer who were screened with both Cologuard and colonoscopy. (Antonella Rangel al, N Engl J Med 2014;370(14):1496-6674.) Cologuard may produce a false negative or false positive result (no colorectal cancer or precancerous polyp present at colonoscopy follow up). A negative Cologuard test result does not guarantee the absence of CRC or advanced adenoma (pre-cancer). The current Cologuard screening interval is every 3 years. ([place] Cancer Society and U.S. Multi-Society Task Force). Cologuard performance data in a 10,000 patient pivotal study using colonoscopy as the reference method can be accessed at the following location: www.thinktank.net.com/results. Additional description of the Cologuard test process, warnings and precautions can be found at www.colSalesforce Radian6rd.Phrazit. Stool specimen (specimen) 02/05/2024 1:12 PM EDT 02/08/2024 9:39 AM EDT Jacquie CARVALHO LAB MOLECULAR DIAGNOSTICS VIVIANA CARLISLE Final Result [employer] (CLIA #:[id number]) [address] [place] [address], [employer] (CLIA #:[id number]) [address] [place] [address] * Diabetic Retinopathy Screening - OU - Both Eyes (02/01/2024 3:12 PM EDT) RESULTS normal Anatomical Region Laterality Modality Head Other Carrol Sethi MD OPHTH PHOTOGRAPHY Final Result from Last 3 Months or Most Recently Relevant to Health Maintenance Insurance MEDICARE Advance Directives Documents on File Type Date Recorded Patient Paper Novelty Maker Expl anation Power of Authors Motivational 04/10/2025 10:50 AM heal thcare power of project development manager paperwork 2025-04-10 Care Teams Soaker Meat Relationship Specialty Start Date End Date Carrol Sethi MD [address] [place] [address] PCP - General Family Medicine 01/18/23 Jacquie Townsend PA [address] [facility] [address] [place] [address] PCP - ACO Reach 10/19/24
--- OUTSIDE RECORDS SUMMARY | 2025-05-17 13:51 | XMS_ITS | Encounter Summary ---
Author Organization [facility] Address [address] [place] [address] Care Team Providers Care Head Sulfide Operator Name Role Phone Carrol Sethi MD Primary Care Provider Jacquie Townsend PA Unavailable [phone] Melanie Gallegos LPN Unavailable Encounter Details Date Type Department Care Team (Late Contact Info) Description 04/25/2025 Abstract [facility] [place] [address] [facility] [address] [place] [address] Carrol Sethi MD [address] [facility] [address] [facility] [address] [place] [address] Social History Tobacco Use Types Packs/Day Years [...] PM EDT Office Visit [facility] [place] [facility] [address] [facility] [address] [place] [address] Jacquie Townsend PA [address] [facility] [address] [place] [address] documented as of this encounter Visit Diagnoses Not on filedocumented in this encounter Additional Health Concerns Assessment Noted Time PHQ-9 Depression Total Score: 0 01/17/20 25 2:00 PM EDT documented as of this encounter Care Teams Head Sulfide Operator Relationship Specialty Start Date End Date Carrol Sethi MD [address] [facility] [address] [place] [address] PCP - General Family Medicine 01/18/23 Jacquie Townsend PA [address] [facility] [address] [place] [address] PCP - ACO Reach 10/19/24 Melnaie Gallegos LPN [address] [facility] [address] [place] [address] 05/03/25 05/07/25 documented as of this encounter
--- OUTSIDE RECORDS SUMMARY | 2025-05-17 13:51 | XMS_ITS | Encounter Summary ---
Author Organization [facility] Address [id number] [address] [place] [address] Care Team Providers Care Orthopaedic General Name Role Phone Jacquie Townsend Primary Care Provider [phone] Encounter Details Date Type Department Care Team (Latest Contact Info) Description 05/12/2025 Travel Social History Tobacco Use Types Packs/Day Years Used Date Smoking Tobacco: Every Day Cigars Smokeless Tobacco: Never Hunger Screening Answer Date Recorded Within the [...] on file documented as of this encounter Plan of Treatment Not on file documented as of this encounter Visit Diagnoses Not on filedocumented in this encounter Care Teams Orthopaedic General Relationship Specialty Start Date End Date Jacquie Townsend PA PCP - General Physician V/Stol Landing Signal Officer 11/01/22 documented as of this encounter
--- OUTSIDE RECORDS SUMMARY | 2025-05-17 13:51 | XMS_ITS | Clinical Summary ---
Author Organization [facility] Address [address] [place] [address] Phone Care Team Providers Care Skimmer Name Role Phone Unavailable Primary Care Provider Unavailabl e Social History Tobacco Use Types Packs/Day Years Used Date Smoking Tobacco: Never Assessed Sex and Gender Information Value Date Recorded Sex Assigned at Not on file Legal Sex Male 5:13 PM EST Gender Identity Not on file Sexual Orientation Not on file Plan of Treatment Not on file
--- OUTSIDE RECORDS SUMMARY | 2025-05-17 13:51 | XMS_ITS | Encounter Summary ---
Author Organization [facility] Address [address] [place] [address] Care Team Providers Care Batter Scaler Name Role Phone Carrol Sethi MD Primary Care Provider [phone] Jacquie Townsend Unavailable [phone] Encounter Details Date Type Department Care Team (Late st Contact Info) Description 05/14/2025 Patient Outreach [facility] [address] [facility] [place] [id number] Melanie Gallegos LPN 112 [facility] 110 [place] [address] Social History Tobacco Use Types Packs/Day Years [...] AM EDT documented as of this encounter Progress Notes * Melanie Gallegos LPN - 05/14/2025 2:52 PM EDT Images from the original note were not included. Records in chart. MILENA complete. Meds not reconciled with pt. Pt states no med changes other than pain medication order. Pt states still sore all over. Has appt scheduled 05/17. Recently refused CCM Flowsheet Row Patient Outreach from 05/14/2025 in [facility] with Melanie Gallegos LPN Hospital Information ED, Hospital or Intermediate Facility Discharge? ED Patient has been contacted within 2 days of being seen in the ED Yes Diagnosis Neck pain, Left anterior shoulder pain, Left buttock pain, Localized swelling of both lower extremities, Muscle pain Discharge Date 05/13/25 Discharged To: Home Setting Discharge Hospital [facility] Engagement Call Start Time 1451 Admission Date 05/12/25 Medications Discharge medications reviewed and reconciled from hospital? No [pt did not wish to go through medications. Unchanged other than percocet] Is the patient having any side effects they believe may be caused by any medication additions or changes? No Does the patient have all medications ordered at discharge? Yes [Leaving to merchandise pickup/receiving associate Percocet] Is the patient taking all medications as directed (includes completed medication regime)? Yes Appointments Does the patient have a primary care provider? Yes [05/17] Does the patient have any upcoming specialty appointments? No Self Management Does patient have home health? no Patient Teaching Does the patient have access to their discharge instructions? Yes What is the patient's perception of their health status since discharge? Same Is the patient/caregiver able to teach back the hierarchy of who to call/visit for symptoms/problems? PCP, Specialist, Home Health nurse, Urgent Care, ED, 911 Yes Wrap Up Wrap Up Additional Comments Pt tripped while walking, fell and hit head. UA, CT chest, CT abdomen and pelvis, CT cervical spine, CT-brain, X-ray elboe, [id number], labs Call End Time 1454 documented in this encounter Plan of Treatment Upcoming Encounters Date Type Department Care Team (Late st Contact Info) Description 05/22/2025 3:00 PM EDT [facility] [place] [facility] [address] [facility] [address] [place] [address] Jacquie Townsend PA [address] [place] [address] [place] [address] documented as of this encounter Visit Diagnoses Diagnosis Neck pain- Primary Cervicalgia Left anterior shoulder pain Left buttock pain Unspecified myalgia and myositis Localized swelling of both lower extremities Muscle pain Unspecified myalgia and myositis Type 2 diabetes mellitus with other specified complication, with long-term current use of insulin (HCC) documented in this encounter Additional Health Concerns Assessment Noted Time PHQ-9 Depression Total Score: 0 01/17/20 25 2:00 PM EDT documented as of this encounter Care Teams Batter Scaler Relationship Specialty Start Date End Date Carrol Sethi MD [address] [facility] 110 [place] [address] PCP - General Family Medicine 01/18/23 Jacquie Townsend PA 112 [facility] 110 [place] [address] PCP - ACO Reach 10/19/24 documented as of this encounter
--- OUTSIDE RECORDS SUMMARY | 2025-05-17 13:51 | XMS_ITS | Encounter Summary ---
Author Organization [facility] Address [address] [place] [address] Care Team Providers Care Assistant Family Teacher Name Role Phone Carrol Sethi MD Primary Care Provider [phone] Jacquie Townsend Unavailable [phone] Melanie Gallegos LPN Unavailable Reason for Visit * Reason Comments Med Refill Encounter Details Date Type Department Care Team (Late st Contact Info) Description 04/04/2023 Refill [facility] [place] [facility] [address] [place] [address] [place] [address] Jacquie Townsend PA [address] [facility] 110 [place] [address] Bilateral lower extremity edema (Primary Dx); Type 2 diabetes mellitus without complication, without long-term current use of insulin (HCC) Social History Tobacco Use Types Packs/Day Years Used Date Smoking Tobacco: Never Assessed Sex and Gender Information Value Date Recorded Sex Assigned at Male 01/18/2024 4:05 AM EDT Legal Sex Male 7:17 PM EDT Gender Identity Male 01/18/2024 4:05 AM EDT Sexual Orientation Straight 01/18/2024 4: 05 AM EDT documented as of this encounter Miscellaneous Notes * Telephone Encounter - Brittney Byrd - 04/14/2023 10:01 AM EDT LVM AND SENT UNABLE TO CONTACT LETTER * Telephone Encounter - Brittney Byrd - 04/11/2023 10:49 AM EDT LVM * Telephone Encounter - Brittney Byrd - 04/05/2023 9:59 AM EDT lvm * Telephone Encounter - MAIA Taylor - 04/04/2023 1:35 PM EDT Patient is overdue for follow up appt. Please schedule pt for DM/HTN follow up. One month supply of meds sent. documented in this encounter Plan of Treatment Upcoming Encounters Date Type Department Care Team (Late st Contact Info) Description 05/22/2025 3:00 PM EDT Office Visit [facility] [place] [facility] [address] [facility] [address] [place] [address] Jacquie Townsend PA [address] [facility] [address] [place] [address] documented as of this encounter Visit Diagnoses Diagnosis Bilateral lower extremity edema- Primary Type 2 diabetes mellitus without complication, without long-term current use of insulin (HCC) documented in this encounter Care Teams Assistant Family Teacher Relationship Specialty Start Date End Date Carrol Stehi MD [address] [facility] [address] [place] [address] PCP - General Family Medicine 01/18/23 Jacquie Townsend PA [address] [facility] [address] [place] [address] PCP - ACO Reach 10/19/24 Melanie Gallegos LPN [address] [facility] [address] [place] [address] 05/03/25 05/07/25 documented as of this encounter
--- OUTSIDE RECORDS SUMMARY | 2025-05-17 13:51 | XMS_ITS | Encounter Summary ---
Author Organization [employer] Address [id number] [address] [place] [address] Care Team Providers Care Contract Technician Name Role Phone Jacquie Townsend Primary Care Provider [phone] Reason for Visit * Reason Onset Date Comments Referral to Neurology 06/18/2021 Encounter Details Date Type Department Care Team (Late st Contact Info) Description 06/18/2021 Telephone [facility] [address] [place] [address] Elizabeth Trejo Referral to Neurology Social History Tobacco Use Types Packs/Day Years Used Date Smoking Tobacco: Never Assessed Sex and Gender Information Value Date Recorded Sex Assigned at Not on file Legal Sex Male 11:26 AM EDT Gender Identity Not on file Sexual Orientation Not on file documented as of this encounter Miscellaneous Notes * Telephone Encounter - Elizabeth Trejo - 06/18/2021 11:30 AM EDT Referral to Neurology Dx: L Foot Swelling, Unsteady gait , complex regional pain syndrome type 1 affecting other site Referred by Jacquie Townsend Referred to Dr. Herrera documented in this encounter Plan of Treatment Not on file documented as of this encounter Visit Diagnoses Not on filedocumented in this encounter Additional Health Concerns Infection Onset Date Last Indicated Resolved Time COVID-19 Rule-Out 11/01/2022 11/01/2022 11/01/2022 7:01 PM EST COVID-19 Positive 11/01/2022 11/01/2022 11/22/2022 11:12 PM EDT documented as of this encounter Care Teams Contract Technician Relationship Specialty Start Date End Date Jacquie Townsend PA PCP - General Physician Operations Professional 11/01/22 documented as of this encounter
--- OUTSIDE RECORDS SUMMARY | 2025-05-17 13:51 | XMS_ITS | Clinical Summary ---
Author Organization [employer] Address [id number] [address] [place] [address] Care Team Providers Care Snuff Box Finisher Name Role Phone Jacquie Townsend Primary Care Provider [phone] Allergies No known active allergies Medications gabapentin (NEURONTIN) 800 mg tablet Take 1 tablet (800 mg total) by mouth 3 (three) times a day. Active cholecalciferol , vitamin D3, (VITAMIN D3) 5,000 units tablet Take 1 tablet (5,000 Units total) by mouth in the morning. Active furosemide (LASIX) 20 mg tablet Take 1 tablet (20 mg total) by mouth 2 (two) times a day. Active apixaban (ELIQUIS) 5 mg tablet Take 1 tablet (5 mg total) by mouth in the morning and 1 tablet (5 mg total) before bedtime. Active lamoTRIgine (LaMICtal) 100 mg tablet Take 1 tablet (100 mg total) by mouth in the morning. Active metoprolol tartrate (LOPRESSOR) 50 mg tablet Take 1 tablet (50 mg total) by mouth in the morning and 1 tablet (50 mg total) before bedtime. Active QUEtiapine (SEROquel) 100 mg tablet Take 1 tablet (100 mg total) by mouth nightly. Active sertraline (ZOLOFT) 100 mg tablet Take 1 tablet (100 mg total) by mouth in the morning. Active oxyCODONE-aceta minophen (PERCOCET) 5-325 mg per tabletIndicatio ns:Muscle pain Take 1 tablet by mouth every 6 (six) hours as needed for pain for up to 3 days. 3 Day Supply Max Daily Amount: 4 tablets 12 tablet 05/13/2025 05/16/20 25 Encounters Date Type Department Care Team Description 05/12/2025 9:15 PM EDT - 05/13/2025 12:48 AM EDT Emergency [facility] - Emergency [address] [place] [address] Arya Godfrey, Recurrent falls while walking (Primary Dx); Neck pain; Left anterior shoulder pain; Left buttock pain; Localized swelling of both lower extremities; Muscle pain Discharge Disposition: Home 05/12/2025 Travel from Last 3 Months Social History Tobacco Use Types Packs/Day Years [...] on file Sexual Orientation Not on file Last Filed Vital Signs Vital Sign Reading [...] Mass Index 30.68 05/12/2025 9:28 PM EDT Plan of Treatment Health Maintenance Due Date Last Done Comments Tobacco Counseling 1963 Depression Screening 1975 Adult BMI Follow Up Plan 1981 Influenza Vaccine 05/13/2025 01/03/2025, , 12/02/2021, Additional history exists Adult BMI Screening 05/12/2026 05/12/2025 Tobacco Screening 05/12/2026 05/12/2025 DTaP,Tdap and Td Vaccines (2 - Td or Tdap) 01/25/2029 01/25/2019 Zoster (Shingles) Vaccine Completed 01/25/2019, COVID-19 Vaccine Completed 01/03/2025, , 05/22/2021, Additional history exists Medical Devices Not on file Procedures Procedure Name Priority Date/Time Associated Diagnosis Comments POCT NURSING URINE MACROSCOPIC UA Routine 05/13/2025 12:15 AM EDT ER EXTRA URINE MARBLE STAT 05/12/2025 11:59 PM EDT ER EXTRA URINE CULTURE STAT 11:59 PM EDT ER EXTRA URINE STAT 05/12/2025 11:[address] ABDOMEN AND PELVIS W CONT STAT 05/12/2025 11:[address] CHEST W CONT STAT [...] BEDSIDE GLUCOSE Routine 05/12/2025 9:35 PM EDT CK TOTAL STAT 05/12/2025 9:32 PM EDT MAGNESIUM STAT 05/12/2025 9:32 PM EDT COMPREHENSIVE METABOLIC PANEL STAT 05/12/2025 9:32 PM EDT ETHANOL STAT 05/12/2025 9:32 PM EDT CBC WITH AUTO DIFFERENTIAL STAT 05/12/2025 9:32 PM EDT from Last 3 Months Results * POCT Nursing Urine Macroscopic UA (05/13/2025 12:15 AM EDT) POC Urine Specific [place] 1.010 1.010, 1.015, 1.020, 1.025 05/13/2025 12:04 AM EDT [facility] POC Urine Leukocyte Esterase Negative Negative 05/13/2025 12:04 AM EDT [facility] POC Urine Nitrite Negative Negative 05/13/2025 12:04 AM EDT [facility] POC Urine pH 7.0 5.0, 6.0, 6.5, 7.0, 7.5, 8.0, 8.5, 5.5 05/13/2025 12:04 AM EDT [facility] POC Urine Protein Negative Negative 05/13/2025 12:04 AM EDT [facility] POC Urine Glucose Negative Negative 05/13/2025 12:04 AM EDT [facility] POC Urine Ketones Negative Negative 05/13/2025 12:04 AM EDT [facility] POC Urine Urobilinogen 0.2 E.U./dL 05/13/2025 12:04 AM EDT [facility] POC Urine Bilirubin Negative Negative 05/13/2025 12:04 AM EDT [facility] POC Urine Blood/HGB Negative Negative 05/13/2025 12:04 AM EDT [facility] Urine 05/13/2025 12:1 5 AM EDT 05/13/2025 12:04 AM EDT us Arya Godfrey DO POINT OF CARE TEST ORDERA BLES Final Result Performing Organization Address City/[facility]/ZIP Co de Phone Number [address] [place] [address], [place] * Extra Urine [place] (05/12/2025 11:59 PM EDT) Extra Tube Auto Resulted 05/13/2025 1:01 AM EDT [facility] Urine Urine specimen collection, clean catch / Unknown 05/12/2025 11:59 PM EDT 05/13/2025 12:21 AM EDT us Arya Godfrey DO URINE ORDERABLES Final Re sult Performing Organization Address [facility]/ZIP Co de Phone Number [address] [place] [address], [place] * Extra Urine Culture (05/12/2025 11:59 PM EDT) Extra Tube Auto Resulted 05/13/2025 1:01 AM EDT [facility] Urine Urine specimen collection, clean catch / Unknown 05/12/2025 11:59 PM EDT 05/13/2025 12:21 AM EDT us Arya Godfrey DO URINE ORDERABLES Final Re sult Performing Organization Address City/[facility]/ZIP Co de Phone Number [address] [place] [address], [place] * Extra Urine (05/12/2025 11:59 PM EDT) Extra Tube Auto Resulted 05/13/2025 1:01 AM EDT [facility] Urine Urine specimen collection, clean catch / Unknown 05/12/2025 11:59 PM EDT 05/13/2025 12:21 AM EDT us Arya Godfrey DO URINE ORDERABLES Final Re sult [facility] [address] [place] [address], [place] * CT chest with contrast (05/12/2025 11:26 [...] Travis Rubalcava MD on 05/12/2025 11:48 PM us Arya Godfrey DO IMG CT ORDERABLES Final R esult * CT abdomen and pelvis with contrast [...] Alexi Amaya MD on 05/12/2025 11:29 PM Arya Godfrey DO IMG CT ORDERABLES [...] on 05/12/2025 11:27 PM Arya Godfrey DO IM CT ORDERABLES Final R esult * X-ray [...] Travis Rubalcava MD on 05/12/2025 11:24 PM Arya Godfrey DO IMG DIAGNOSTIC IMAGING OR DERABLES Final Result * Lactate w/ Reflex (05/12/2025 9:54 PM EDT) LACTATE W/REFLEX 1.0 0.4 - 2.0 mmol/L 05/12/2025 10:15 PM EDT [facility] Blood Venous blood / Unknown Venipuncture / Unknown 05/12/2025 9:54 PM EDT 05/12/2025 9:57 PM EDT Narrative [facility] - 05/12/2025 10:15 PM EDT Result did not trigger repeat Lactate, re-order if needed. Arya Godfrey DO LAB BLOOD ORDERABLES Haleigh l Result Performing Organization Address [facility]/ZIP Co de Phone Number [address] [place] [address], * Critical Care (05/12/2025 9:44 PM EDT) Narrative Arya Godfrey DO - 05/12/2025 9:44 PM EDT Arya [...] - 99 mg/dL 05/12/2025 9:38 PM EDT [facility] arterial/capilla ry 05/12/2025 9:35 PM EDT 05/12/2025 9:38 PM EDT Arya Godfrey DO POINT OF CARE TEST ORDERA BLES Final Result Performing Organization Address [facility]/ZIP Co de Phone Number [address] [place] [address], [place] * CBC auto differential (05/12/2025 9:32 PM EDT) WBC 6.3 4 - 11 x10E9/L 05/12/2025 9:53 PM EDT [facility] RBC Count 4.72 4.1 - 5.7 X10E12/L 05/12/2025 9:53 PM EDT [facility] Hemoglobin 14.3 13 - 17 g/dL 05/12/2025 9:53 PM EDT [facility] Hematocrit 42.0 39 - 50 % 05/12/2025 9:53 PM EDT [facility] MCV 89 80 - 100 fL 05/12/2025 9:53 PM EDT [facility] MCH 30.4 27 - 34 pg 05/12/2025 9:53 PM EDT [facility] MCHC 34.1 32 - 36 g/dL 05/12/2025 9:53 PM EDT [facility] RDW 14.0 11.5 - 15 % 05/12/2025 9:53 PM EDT [facility] Platelet Count 207 150 - 450 X10E9/L 05/12/2025 9:53 PM EDT [facility] MPV 7.3 7 - 12 fL 05/12/2025 9:53 PM EDT [facility] Neutrophils % 69.0 % 05/12/2025 9:53 PM EDT [facility] Lymphocytes % 18.4 % 05/12/2025 9:53 PM EDT [facility] Monocytes % 9.5 % 05/12/2025 9:53 PM EDT [facility] Eosinophils % 1.7 % 05/12/2025 9:53 PM EDT [facility] Basophils % 1.4 % 05/12/2025 9:53 PM EDT [facility] Neutrophils Absolute (A) 4.4 1.5 - 6.6 10*3/uL 05/12/2025 9:53 PM EDT [facility] Lymphocytes Absolute 1.2 1.0 - 3.5 10*3/uL 05/12/2025 9:53 PM EDT [facility] Monocytes Absolute 0.6 0.0 - 0.9 10*3/uL 05/12/2025 9:53 PM EDT [facility] Eosinophils Absolute 0.1 0.0 - 0.4 10*3/uL 05/12/2025 9:53 PM EDT [facility] Basophils Absolute 0.1 0.0 - 0.2 10*3/uL 05/12/2025 9:53 PM EDT [facility] Differential Type AUTOMATED DIFFERENTIAL 05/12/2025 9:53 PM EDT [facility] Blood Venous blood / Unknown Venipuncture / Unknown 05/12/2025 9:32 PM EDT 05/12/2025 9:34 PM EDT Arya Godfrey DO LAB BLOOD ORDERABLES Haleigh l Result Performing Organization Address City/[facility]/ZIP Co de Phone Number [address] [place] [address], [place] * Magnesium (05/12/2025 9:32 PM EDT) [facility] MAGNESIUM 1.9 1.8 - 2.6 mg/dL 05/12/2025 9:55 PM EDT [facility] Blood Venous blood / Unknown Venipuncture / Unknown 05/12/2025 9:32 PM EDT 05/12/2025 9:34 PM EDT Arya Godfrey DO LAB BLOOD ORDERABLES Haleigh l Result [address] [place] [address], [place] * (ABNORMAL) CK Total (05/12/2025 9:32 PM EDT) Pathologist [facility] CPK 253(H) 24 - 195 U/L 05/12/2025 9:55 PM EDT [facility] Blood Venous blood / Unknown Venipuncture / Unknown 05/12/2025 9:32 PM EDT 05/12/2025 9:34 PM EDT [facility]LOOD ORDERABLES Haleigh l Result Performing Organization Address [facility] Co de Phone Number [address] [place] [address], [place] * Ethanol (05/12/2025 9:32 PM EDT) ETHANOL <0.010 <=0.080 g/dL 05/12/2025 9:55 PM EDT [facility] Comment: This report is intended for use in clinical monitoring or management of patients. Blood Venous blood / Unknown Venipuncture / Unknown 05/12/2025 9:32 PM EDT 05/12/2025 9:34 PM EDT Arya Godfrey LAB BLOOD ORDERABLES Haleigh l Result Performing Organization Address [facility] de Phone Number [address] [place] [address], [place] * (ABNORMAL) Comprehensive metabolic panel (05/12/2025 9:32 PM EDT) Pathologist [facility] SODIUM 134 134 - 146 mmol/L 05/12/2025 9:55 PM EDT [facility] POTASSIUM 4.1 3.5 - 5.0 mmol/L 05/12/2025 9:55 PM EDT [facility] CHLORIDE 101 98 - 109 mmol/L 05/12/2025 9:55 PM EDT [facility] CARBON DIOXIDE 26 22 - 32 mmol/L 05/12/2025 9:55 PM EDT [facility] ANION GAP 7 5 - 15 mmol/L 05/12/2025 9:55 PM EDT [facility] BLOOD UREA NITROGEN 14 5 - 27 mg/dL 05/12/2025 9:55 PM EDT [facility] CREATININE 0.98 0.70 - 1.20 mg/dL 05/12/2025 9:55 PM EDT [facility] Comment:METHOD TRACEABLE TO IDOK STANDARD GLUCOSE 275(H) 65 - 99 mg/dL 05/12/2025 9:55 PM EDT [facility] CALCIUM 9.3 8.5 - 10.5 mg/dL 05/12/2025 9:55 PM EDT [facility] TOTAL PROTEIN 7.1 6.0 - 8.0 g/dL 05/12/2025 9:55 PM EDT [facility] ALBUMIN 4.0 3.2 - 5.3 g/dL 05/12/2025 9:55 PM EDT [facility] ALKALINE PHOSPHATASE 55 39 - 130 U/L 05/12/2025 9:55 PM EDT [facility] AST 26 <=41 U/L 05/12/2025 9:55 PM EDT [facility] ALT 24 <=40 U/L 05/12/2025 9:55 PM EDT [facility] BILIRUBIN,TOTAL 0.8 0.3 - 1.2 mg/dL 05/12/2025 9:55 PM EDT [facility] EGFR Non-Race Dependent 87 >=60 ml/min/1.7 3sq.m 05/12/2025 9:55 PM EDT [facility] Comment: eGFR not reported due to non-numeric value for Creatinine. Reported eGFR is based on the CKD-EPI 2020 equation that does not use a race coefficient. Blood Venous blood / Unknown Venipuncture / Unknown 05/12/2025 9:32 PM EDT 05/12/2025 9:34 PM EDT us Arya Godfrey DO LAB BLOOD ORDERABLES Haleigh l Result [facility] [address] [facility] [place] [address], [place] from Last 3 Months Insurance MEDICARE Care Teams Snuff Box Finisher Relationship Specialty Start Date End Date Jacquie Townsend PA PCP - General Physician Audiometric Technician 11/01/22
--- OUTSIDE RECORDS SUMMARY | 2025-05-17 13:51 | XMS_ITS | Encounter Summary ---
Author Organization [facility] Address [address] [place] [address] Care Team Providers Care Balancing Machine Set Up Worker Name Role Phone Carrol Sethi MD Primary Care Provider [phone] Jacquie Townsend Unavailable Melanie Gallegos LPN Unavailable Reason for Visit * Reason Comments Med Refill Encounter Details Date Type Department Care Team (Late st Contact Info) Description 12/31/2023 Refill [facility] [place] [facility] [address] [facility] [address] [place] [address] Carrol Sethi MD [address] [facility] [address] [place] [address] Depression, unspecified depression type Social History Tobacco Use Types Packs/Day Years Used Date Smoking Tobacco: Never Smokeless Tobacco: Never Alcohol Use Standard Drinks/Week Comments Not Currently 0 (1 standard drink = 0.6 oz pure alcohol) Caffeine intake: 1-2 cups per day coffee Sex and Gender Information Value Date Recorded Sex Assigned at Male 01/18/2024 4:05 AM EDT Legal Sex Male 7:17 PM EDT Gender Identity Male 01/18/2024 4:05 AM EDT Sexual Orientation Straight 01/18/2024 4: 05 AM EDT documented as of this encounter Miscellaneous Notes * Telephone Encounter - Danelle Klein LPN - 01/02/2024 8:24 AM EDT Approving, but needs appt for additional refills. documented in this encounter Plan of Treatment Upcoming Encounters Date Type Department Care Team (Late st Contact Info) Description 05/22/2025 3:00 PM EDT Office Visit [facility] [place] [address] [facility] [address] [place] [address] Jacquie Townsend PA [address] [facility] [address] [place] [address] documented as of this encounter Visit Diagnoses Diagnosis Depression, unspecified depression type documented in this encounter Care Teams Balancing Machine Set Up Worker Relationship Specialty Start Date End Date Carrol Sethi MD [address] [facility] [address] [place] [address] PCP - General Family Medicine 01/18/23 Jacquie Townsend PA [address] [facility] [address] [place] [address] PCP - ACO Reach 10/19/24 Melanie Gallegos LPN [address] [facility] [address] [place] [address] 05/03/25 05/07/25 documented as of this encounter
--- OUTSIDE RECORDS SUMMARY | 2025-05-17 13:51 | XMS_ITS | Encounter Summary ---
Author Organization [facility] Address [address] [place] [address] Care Team Providers Care Hospice Nurse Practitioner Name Role Phone Carrol Sethi MD Primary Care Provider [phone] Jacquie Townsend Unavailable [phone] Melanie Gallegos LPN Unavailable Reason for Visit * Reason Comments Med Refill Encounter Details Date Type Department Care Team (Late st Contact Info) Description 12/31/2023 Refill [facility] [place] [facility] [address] [facility] 110 [place] [address] Jacquie Townsend PA [address] [facility] 110 [place] [address] Depression, unspecified depression type Social History Tobacco [...] Encounter - Danelle Klein LPN - 01/02/2024 8:25 AM EDT Approving, but needs appt for additional refills. documented in this encounter Plan of Treatment Upcoming Encounters Date Type Department Care Team (Late st Contact Info) Description 05/22/2025 3:00 PM EDT Office Visit [facility] [place] [address] [facility] 110 [place] [address] Jacquie Townsend PA [address] [facility] 110 [place] [address] documented as of this encounter Visit Diagnoses Diagnosis Depression, unspecified depression type documented in this encounter Care Teams Hospice Nurse Practitioner Relationship Specialty Start Date End Date Carrol Sethi MD [address] [facility] 110 [place] [address] PCP - General Family Medicine 01/18/23 Jacquie Townsend PA [address] [facility] 110 [place] [address] PCP - ACO Reach 10/19/24 Melanie Gallegos LPN [address] [facility] 110 [place] [address] 05/03/25 05/07/25 documented as of this encounter
--- OUTSIDE RECORDS SUMMARY | 2025-05-17 13:51 | XMS_ITS | Encounter Summary ---
Author Organization [facility] Address [address] [place] [address] Care Team Providers Care Supervising Editor Trailer Name Role Phone Carrol Sethi MD Primary Care Provider [phone] Jacquie Townsend PA Unavailable [phone] Melanie Gallegos LPN Unavailable Encounter Details Date Type Department Care Team (Late Contact Info) Description 05/05/2023 Abstract [facility] [place] [address] [facility] 110 [place] [address] Carrol Sethi MD [address] [facility] 110 [place] [address] Social History Tobacco Use Types Packs/Day Years [...] 3:00 PM EDT Office Visit [facility] [place] [address] [facility] [address] [place] [address] Jacquie Townsend PA [address] [facility] 110 [place] [address] documented as of this encounter Visit Diagnoses Not on filedocumented in this encounter Care Teams Supervising Editor Trailer Relationship Specialty Start Date End Date Carrol Sethi MD [address] [facility] 110 [place] [address] PCP - General Family Medicine 01/18/23 Jacquie Townsend PA [address] [facility] 110 [place] [address] PCP - ACO Reach 10/19/24 Melanie Gallegos LPN [address] [facility] 110 [place] [address] 05/03/25 05/07/25 documented as of this encounter
--- OUTSIDE RECORDS SUMMARY | 2025-05-17 13:51 | XMS_ITS | Encounter Summary ---
Author Organization [facility] Address [address] [facility] [place] [address] Care Team Providers Care Flight Physician Name Role Phone Carrol Sethi MD Primary Care Provider [phone] Jacquie Townsend Unavailable [phone] Melanie Gallegos LPN Unavailable Encounter Details Date Type Department Care Team (Late Contact Info) Description 04/12/2025 Abstract [facility] [address] [place] [id number] Solitario Simmons, DPM FACFAS [address] [facility] [place] [address] Social History Tobacco Use Types [...] 3:00 PM EDT Office Visit [facility] [place] [facility] 112 [facility] 110 [place] [id number] Jacquie Townsend PA [address] [facility] 110 [place] [address] documented as of this encounter Visit Diagnoses Not on filedocumented in this encounter Additional Health Concerns Assessment Noted Time PHQ-9 Depression Total Score: 0 01/17/20 25 2:00 PM EDT documented as of this encounter Care Teams Flight Physician Relationship Specialty Start Date End Date Carrol Sethi MD [address] [facility] 110 [place] [address] PCP - General Family Medicine 01/18/23 Jacquie Townsend PA [address] [facility] 110 [place] [address] PCP - ACO Reach 10/19/24 Melanie Gallegos LPN [address] [facility] 110 [place] [address] 05/03/25 05/07/25 documented as of this encounter
--- OUTSIDE RECORDS SUMMARY | 2025-05-17 13:51 | XMS_ITS | Encounter Summary ---
Author Organization [facility] Address [address] [place] [address] Care Team Providers Care Otolaryngologist Name Role Phone Carrol Sethi MD Primary Care Provider [phone] Jacquie Townsend PA Unavailable [phone] Melanie Gallegos LPN Unavailable Encounter Details Date Type Department Care Team (Late Contact Info) Description 10/11/2023 Abstract [facility] [place] [address] [facility] 110 [place] [address] Carrol Sethi MD [address] [facility] 110 [place] [address] Social History Tobacco Use Types Packs/Day Years [...] [place] [address] [facility] [address] [place] [address] Jacquie Townsend PA [address] [facility] 110 [place] [address] documented as of this encounter Visit Diagnoses Not on filedocumented in this encounter Care Teams Otolaryngologist Relationship Specialty Start Date End Date Carrol Sethi MD [address] [facility] 110 [place] [address] PCP - General Family Medicine 01/18/23 Jacquie Townsend PA [address] [facility] 110 [place] [address] PCP - ACO Reach 10/19/24 Melanie Gallegos LPN [address] [facility] 110 [place] [address] 05/03/25 05/07/25 documented as of this encounter
--- OUTSIDE RECORDS SUMMARY | 2025-05-17 13:51 | XMS_ITS | Encounter Summary ---
Author Organization [facility] Address [address] [place] [address] Care Team Providers Care Carpet Weaver Name Role Phone Carrol Sethi MD Primary Care Provider [phone] Jacquie Townsend PA Unavailable [phone] Melanie Gallegos LPN Unavailable Encounter Details Date Type Department Care Team (Late Contact Info) Description 01/17/2024 Abstract [facility] [place] 112 [facility] 110 [place] [address] Carrol Sethi MD [address] [facility] 110 [place] [address] Social History Tobacco Use Types Packs/Day Years [...] PM EDT Office Visit [facility] [place] [facility] [address] [facility] 110 [place] [address] Jacquie Townsend PA [address] [facility] 110 [place] [address] documented as of this encounter Visit Diagnoses Not on filedocumented in this encounter Additional Health Concerns Assessment Noted Time PHQ-9 Depression Total Score: 0 01/16/20 24 1:00 PM EDT documented as of this encounter Care Teams Carpet Weaver Relationship Specialty Start Date End Date Carrol Sethi MD [address] [facility] 110 [place] [address] PCP - General Family Medicine 01/18/23 Jacquie Townsend PA [address] [facility] 110 [place] [address] PCP - ACO Reach 10/19/24 Melanie Gallegos LPN [address] [facility] 110 [place] [address] 05/03/25 05/07/25 documented as of this encounter
--- OUTSIDE RECORDS SUMMARY | 2025-05-17 13:51 | XMS_ITS | Encounter Summary ---
Author Organization [facility] Address [address] [place] [address] Care Team Providers Care Batch Heat Treat Operator Name Role Phone Carrol Sethi MD Primary Care Provider [phone] Jacquie Townsend PA Unavailable [phone] Melanie Gallegos LPN Unavailable Encounter Details Date Type Department Care Team (Late Contact Info) Description 01/17/2024 Abstract [facility] [place] 112 [facility] 110 [place] [address] Carrol Sethi MD [address] [facility] 110 [place] [address] Social History Tobacco Use Types Packs/Day Years [...] [place] [facility] [address] [facility] 110 [place] [address] Jacquie Townsend PA [address] [facility] 110 [place] [address] documented as of this encounter Visit Diagnoses Not on filedocumented in this encounter Additional Health Concerns Assessment Noted Time PHQ-9 Depression Total Score: 0 01/16/20 24 1:00 PM EDT documented as of this encounter Care Teams Batch Heat Treat Operator Relationship Specialty Start Date End Date Carrol Sethi MD [address] [facility] 110 [place] [address] PCP - General Family Medicine 01/18/23 Jacuqie Townsend PA [address] [facility] 110 [place] [address] PCP - ACO Reach 10/19/24 Melanie Gallegos LPN [address] [facility] 110 [place] [address] 05/03/25 05/07/25 documented as of this encounter
--- OUTSIDE RECORDS SUMMARY | 2025-05-17 13:51 | XMS_ITS | Encounter Summary ---
Author Organization [facility] Address [address] [place] [address] Care Team Providers Care Stripper And Opaquer Apprentice Name Role Phone Carrol Sethi MD Primary Care Provider [phone] Jacquie Townsend PA Unavailable [phone] Melanie Gallegos LPN Unavailable Encounter Details Date Type Department Care Team (Late Contact Info) Description 10/05/2023 Abstract [facility] [place] [address] [facility] 110 [place] [address] Carrol Sethi MD [address] [facility] 110 [place] [address] Social History Tobacco Use Types Packs/Day Years [...] [place] [address] [facility] [address] [place] [address] Jacquie Townsend PA [address] [facility] 110 [place] [address] documented as of this encounter Visit Diagnoses Not on filedocumented in this encounter Care Teams Stripper And Opaquer Apprentice Relationship Specialty Start Date End Date Carrol Sethi MD [address] [facility] [facility] 110 [place] [address] PCP - General Family Medicine 01/18/23 Jacquie Townsend PA [address] [facility] 110 [place] [address] PCP - ACO Reach 10/19/24 Melanie Gallegos LPN [address] [facility] 110 [place] [address] 05/03/25 05/07/25 documented as of this encounter
--- OUTSIDE RECORDS SUMMARY | 2025-05-17 13:51 | XMS_ITS | Encounter Summary ---
Author Organization [facility] Address [address] [place] [address] Care Team Providers Care Animal Geneticist Name Role Phone Carrol Sethi MD Primary Care Provider [phone] Jacquie Townsend PA Unavailable [phone] Melanie Gallegos LPN Unavailable Encounter Details Date Type Department Care Team (Late Contact Info) Description 04/25/2025 Abstract [facility] [place] [address] [facility] 110 [place] [address] Carrol Sethi MD [address] [facility] 110 [place] [address] Social History Tobacco Use Types Packs/Day Years [...] PM EDT Office Visit [facility] [place] [facility] [address] [facility] 110 [place] [address] Jacquie Townsend PA [address] [facility] 110 [place] [address] documented as of this encounter Visit Diagnoses Not on filedocumented in this encounter Additional Health Concerns Assessment Noted Time PHQ-9 Depression Total Score: 0 01/17/20 25 2:00 PM EDT documented as of this encounter Care Teams Animal Geneticist Relationship Specialty Start Date End Date Carrol Sethi MD [address] [facility] 110 [place] [address] PCP - General Family Medicine 01/18/23 Jacquie Townsend PA [address] [facility] 110 [place] [address] PCP - ACO Reach 10/19/24 Melanie Gallegos LPN [address] [facility] 110 [place] [address] 05/03/25 05/07/25 documented as of this encounter
--- NOTE | 2025-05-17 14:03 | XR_ITS ---
[facility] [place] [id number] Patient Name: CAROLANN RASCON MRN: [id number] date: 1965 Sex: M Assigned Patient Location: ER Current Patient Location: ER Accession/Order Number: [id number] Exam Date: 05/17/2025 14:40 Report Date: 05/17/2025 14:53 At the request of: RAYNA CARVALHO Procedure: XR tibia fibula ROSE 2V Bilateral tib-fib 2 views each. Reason for exam: Bilateral lower leg edema and swelling for one week. COMPARISON: None. LUNGS: Right tib-fib demonstrate diffuse soft tissue swelling. No acute bony process. Mild degenerative changes involving the knee joint. Ankle mortise appears intact. A similar process is seen involving the left tib-fib without acute bony process. Bilateral plantar spurring. XR/XR tibia fibula ROSE 2V IMPRESSION: Bilateral lower leg soft tissue swelling without acute bony process. Impression dictated by: Armond Jaen Jr., DDaphneODaphne 05/17/2025 2:53 PM Dictation Location: [facility] Electronically authenticated by: [id number] Y Date: 05/17/2025 14:53
--- NOTE | 2025-05-17 14:11 | ED.GENADUL1 ---
HPI HPI - General Adult General Chief complaint: Extremity Problem, Nontraumatic Stated complaint: LOWER EXTREMITY SWELLING Time Seen by Provider: 05/17/25 13:34 Source: patient Mode of arrival: walk-in History of Present Illness HPI narrative: Presents with leg swelling left greater than rightturned red started this morning. Patient's had chills. He is diabetic with history of neuropathy. Patient also notes that he had mechanical fall on Tuesday was seen at [facility] including CAT scans of head neck left side and hip. He was then route to his primary care appointment today states he followed detour's and was due late in did not get into see his doctor as he was more than 30 minutes late. He states he came back to ER for evaluation. Patient denies fever, nausea, vomiting, urinary bleeding, or pain with urination denies any history of MRSA. Does have history of leg infections he states he does take his Eliquis. Has not missed a dose. He also was on oxycodone from Tuesday. Symptoms mild to moderate severity worse with touch or motion. Patient also has old healing wounds on his left proximal tibia also has 1 on right foot. Onset (ago): day(s) (one day) Location: Reports lower extremity (Bilateral lower extremity) Related Data Home Medications ?Medication ?Instructions ?Recorded ?Confirmed apixaban 5 mg tablet (Eliquis) 5 mg PO BID 05/17/25 05/17/25 furosemide 20 mg tablet 20 mg PO QAM 05/17/25 05/17/25 gabapentin 100 mg capsule 100 mg PO TID 05/17/25 05/17/25 gabapentin 800 mg tablet 800 mg PO TID 05/17/25 05/17/25 insulin degludec 200 unit/mL (3 unit subcut 05/17/25 mL) subcutaneous pen (Tresiba FlexTouch U-200 insulin) lamotrigine 100 mg tablet 100 mg PO .QD 05/17/25 05/17/25 metoprolol tartrate 50 mg tablet 50 mg PO .QD 05/17/25 05/17/25 oxcarbazepine 150 mg tablet 150 mg PO BID 05/17/25 05/17/25 oxycodone-acetaminophen 5 mg-325 1 tab PO Q6H 05/17/25 05/17/25 mg tablet quetiapine 25 mg tablet 25 mg PO .QHS 05/17/25 05/17/25 sertraline 100 mg tablet 100 mg PO .QD 05/17/25 05/17/25 Previous Rx's ?Medication ?Instructions ?Recorded cephalexin 500 mg tablet 500 mg PO QID 7 days #28 tabs 05/17/25 sulfamethoxazole 800 1 tab PO BID 7 days #14 tabs 05/17/25 mg-trimethoprim 160 mg tablet (Bactrim DS) Allergies Allergy/AdvReac Type Severity Reaction Status Date / Time No Known Drug Allergies Allergy Verified 05/17/25 13:34 Opioid HPI Opioid Management Most Recent Opioid Data: Last Pain Scale 9 Today, 14:31 Last ED Pain Assessment Today, 14:30 Review of Systems ROS Status of ROS 10 or more systems reviewed and unremarkable except as noted in history and below Constitutional Reports: chills; Denies: fever Eyes Denies: change in vision Cardiovascular Denies: chest pain or palpitations Respiratory Denies: shortness of breath or cough Gastrointestinal Denies: abdominal pain, nausea or vomiting Genitourinary Denies: painful urination, urinary frequency or blood in urine Musculoskeletal Reports: extremity pain and extremity swelling Integumentary/Breast Reports: redness, skin tenderness and skin swelling; Denies: rash or skin pain Neurological Reports: headache Psychiatric Denies: anxiety Endocrine Denies: excessive urination Allergic/Immunologic Denies: hives PFSH PFSH Social History Little interest or pleasure in doing things: not at all Feeling down, depressed, or hopeless: not at all Exam Constitutional Vital Signs, click to edit/add: Last Vital Signs Temp 98.0 F 05/17/25 13:37 Pulse 67 05/17/25 13:37 Resp 16 05/17/25 13:37 BP 159/87 H 05/17/25 13:37 Pulse Ox 99 05/17/25 13:37 O2 Del Method Room Air 05/17/25 13:37 Documenting provider has reviewed patient's vital signs: yes Common normals: no apparent distress, average body habitus and oriented x3 Exam limitations: no altered mental status General appearance: cooperative and comfortable HENKS Common normals: normocephalic Face and sinus: normal facial exam General ear: hearing not grossly impaired External ear: external ears normal and external ear abnormal External auditory canal: EACs normal Tympanic membrane: TMs normal bilaterally Eye Common normals: PERRL and EOMs intact bilaterally Neck & C-Spine Common normals: full ROM and supple Chest Common normals: palpation of chest normal Respiratory Common normals: normal respiratory effort, no retractions, no use of accessory muscles and clear to auscultation bilaterally Effort & inspection: able to speak in complete sentences Auscultation: clear to auscultation bilaterally; lung sounds not diminished Cardio Common normals: regular rate, regular rhythm, S1 normal heart sound and S2 normal heart sound GI Common normals: Normal to inspection, nondistended, normoactive bowel sounds present, soft to palpation and non-tender Back & Pelvis Common normals: thoracic and lumbar spine normal to inspection and no thoracic nor lumbar tenderness Extremity Common normals: abnormal to inspection and pedal edema General: edema; no deformity and no mottling Right lower extremity: lower leg, ankle joint and foot and digits Left lower extremity: lower leg, ankle joint and foot and digits Other: Edema left greater than right/bilaterally. +2 pitting edema bilaterally erythema noted bilaterally left greater than right. diffuse Tenderness bilaterally. Neuro Common normals: oriented x3 and moves all extremities Psych Common normals: mental status grossly normal and thought process normal Course Vital Signs Vital signs: Vital Signs Temperature 98.0 F 05/17/25 13:37 Pulse Rate 67 05/17/25 13:37 Respiratory Rate 16 05/17/25 13:37 Blood Pressure 159/87 H 05/17/25 13:37 Pulse Oximetry 99 05/17/25 13:37 Oxygen Delivery Method Room Air 05/17/25 13:37 Temperature 98.0 F 05/17/25 13:37 Pulse Rate 67 05/17/25 13:37 Respiratory Rate 16 05/17/25 13:37 Blood Pressure 159/87 H 05/17/25 13:37 Pulse Oximetry 99 05/17/25 13:37 Oxygen Delivery Method Room Air 05/17/25 13:37 Medical Decision Making MDM Narrative Medical decision making narrative: Patient presents with bilateral cellulitis. And leg swelling and pain. With diabetes and abrasions Reviewed patient is well patient wants to sign out against medical vice including risk and benefit of moving her child to including loss of limb up to and including . We discussed need for admission patient refuses offered admission alert and x 4 reiterates wants to sign out AGAINST MEDICAL ADVICE will follow-up with primary care and return to if any symptoms worsen or new symptoms well Lab Data Labs: Lab Results 05/17/25 05/17/25 Range/Units 14:28 15:55 WBC 8.2 (4.0-11.0) 10^3/uL RBC 4.82 (4.70-6.10) 10^6/uL Hgb 14.7 (14.0-18.0) g/dL Hct 43.8 (42.0-54.0) % MCV 90.9 (80.0-94.0) fL MCH 30.5 (25.9-34.0) pg MCHC 33.6 (29.9-35.2) g/dL RDW 12.8 (11.0-15.0) % Plt Count 228 (150-450) 10^3/uL MPV 9.6 (9.5-13.5) fL Neut % (Auto) 56.8 (43.0-75.0) % Lymph % (Auto) 30.8 (20.5-60.0) % [place] % (Auto) 9.2 (1.7-12.0) % Eos % (Auto) 1.8 (0.9-7.0) % Baso % (Auto) 1.2 (0.2-2.0) % Neut # (Auto) 4.6 (1.4-6.5) 10^3/uL Lymph # (Auto) 2.5 (1.2-3.8) 10^3/uL [place] # (Auto) 0.8 (0.3-0.8) 10^3/uL Eos # (Auto) 0.2 (0.0-0.7) 10^3/uL Baso # (Auto) 0.1 (0.0-0.1) 10^3/uL Abs Immat Gran (auto) 0.02 (0.00-0.03) 10^3/uL Imm/Tot Granulo (auto) 0.2 (0.0-0.5) % Sodium 137 (136-145) mmol/L Potassium 4.2 (3.5-5.1) mmol/L Chloride 103 (98-107) mmol/L Carbon Dioxide 29.7 (21.0-32.0) mmol/L Anion Gap 8.5 BUN 12.0 (7.0-18.0) mg/dL Creatinine 0.90 (0.70-1.30) mg/dL Est GFR ( Amer) >60 (>=60 mL/min/1.73m^2) Est GFR (Non-Af Amer) >60 (>=60 mL/min/1.73m^2) BUN/Creatinine Ratio 13.3 Glucose 153 H (74-106) mg/dL Lactate 0.6 (0.4-2.0) mmol/L Calcium 9.1 (8.5-10.1) mg/dL Magnesium 2.0 (1.8-2.4) mg/dL Total Bilirubin 0.7 (0.2-1.0) mg/dL AST 23 (15-37) U/L ALT 31 (16-63) U/L Alkaline Phosphatase 62 (46-116) U/L Total Protein 7.5 (6.4-8.2) g/dL Albumin 3.7 (3.4-5.0) g/dL Globulin 3.8 g/dL Albumin/Globulin Ratio 1.0 Urine Color Lt. yellow (YELLOW) Urine Clarity Clear (CLEAR) Urine pH 7.0 (5.0-9.0) Ur Specific [place] 1.015 (1.005-1.025) Urine Protein Negative (NEG/TRACE) mg/dL Urine Glucose (UA) Negative (NEGATIVE) mg/dL Urine Ketones Negative (NEGATIVE) mg/dL Urine Occult Blood Negative (NEGATIVE) Urine Nitrite Negative (NEGATIVE) Urine Bilirubin Negative (NEGATIVE) Urine Urobilinogen 1.0 (0.2-1.0) EU/dL Ur Leukocyte Esterase Negative (NEGATIVE) Discharge Plan Discharge Stand Alone Forms: Portal Instructions Chief Complaint: Extremity Problem, Nontraumatic Clinical Impression: Cellulitis of right lower extremity, Edema, peripheral Cellulitis Qualifiers: Site of cellulitis: extremity Site of cellulitis of extremity: lower extremity Laterality: left Qualified Code(s): L03.116 - Cellulitis of left lower limb Diabetes Qualifiers: Diabetes mellitus type: type 1 Diabetes mellitus complication status: with skin complications Patient Disposition: Left Against Medical Advice Time of Disposition Decision: 16:49 Condition: Good Mode of Transportation: Private Vehicle Prescriptions / Home Meds: New cephalexin 500 mg tablet 500 mg PO QID 7 Days Qty: 28 0RF sulfamethoxazole-trimethoprim [Bactrim DS] 800-160 mg tablet 1 tab PO BID 7 Days Qty: 14 0RF No Action quetiapine 25 mg tablet 25 mg PO .QHS oxcarbazepine 150 mg tablet 150 mg PO BID sertraline 100 mg tablet 100 mg PO .QD gabapentin 800 mg tablet 800 mg PO TID metoprolol tartrate 50 mg tablet 50 mg PO .QD furosemide 20 mg tablet 20 mg PO QAM gabapentin 100 mg capsule 100 mg PO TID lamotrigine 100 mg tablet 100 mg PO .QD insulin degludec [Tresiba FlexTouch U-200] 200 unit/mL (3 mL) insulin pen SUBCUT Eliquis 5 mg tablet 5 mg PO BID oxycodone-acetaminophen 5-325 mg tablet 1 tab PO Q6H Print Language: Ukrainian Instructions: Cellulitis (ED), Edema (ED) Additional Instructions: Follow-up with primary care. Return to if any symptoms worsen or new symptoms develop. Referrals: WARD MALAGON [Primary Care Provider, Family Practice] - 1 week
[2025-05-17 15:06] LABS: Hematocrit 43.8 % (42.0-54.0); Hemoglobin 14.7 g/dL (14.0-18.0); Immature Granulocytes Abs Auto 0.02 10^3/uL (0.00-0.03); Immature Granulocytes Pct Auto 0.2 % (0.0-0.5); Lymphocytes Absolute Auto 2.5 10^3/uL (1.2-3.8); Mean Corpuscular HGB Conc 33.6 g/dL (29.9-35.2); Mean Corpuscular Hemoglobin 30.5 pg (25.9-34.0); Mean Corpuscular Volume 90.9 fL (80.0-94.0); Platelet Count 228 10^3/uL (150-450); Red Blood Count 4.82 10^6/uL (4.70-6.10); White Blood Count 8.2 10^3/uL (4.0-11.0)
[2025-05-17 15:22] LABS: Alanine Aminotransferase 31 U/L (16-63); Albumin Globulin Ratio 1.0; Albumin Level 3.7 g/dL (3.4-5.0); Alkaline Phosphatase 62 U/L (46-116); Anion Gap 8.5; Aspartate Amino Transferase 23 U/L (15-37); Blood Urea Nitrogen 12.0 mg/dL (7.0-18.0); Calcium 9.1 mg/dL (8.5-10.1); Carbon Dioxide 29.7 mmol/L (21.0-32.0); Chloride 103 mmol/L (98-107); Estimated GFR (African America >60 (>=60 mL/min/1.73m^2); Estimated GFR (Non-African Ame >60 (>=60 mL/min/1.73m^2); Globulin 3.8 g/dL; Glucose 153 mg/dL (74-106); Potassium 4.2 mmol/L (3.5-5.1); Sodium 137 mmol/L (136-145); Total Protein 7.5 g/dL (6.4-8.2)
[2025-05-17 15:26] LABS: Lactate/Lactic Acid 0.6 mmol/L (0.4-2.0)
[2025-05-17 15:29] LABS: Magnesium 2.0 mg/dL (1.8-2.4)
[2025-05-17 16:37] LABS: Glucose Urine UA NEGATIVE (NEGATIVE)
--- NOTE | 2025-05-17 16:58 | PC.NURSE ---
Pt refused admission Antibiotics were still sent to pharmacy for patient but he signed out AMA - form signed by patient, this nurse, and MAIA Daigle Pt ambulated to ER exit
== END 2025-05-17 16:58 | disposition left against medical advice (07) ==
PROVIDERS: Physician Assistant; Emergency Provider Student in an Organized Health Care Education/Training Program; PCP Physician Assistant
DX: L03.115 Cellulitis of right lower limb (principal); Z53.29 Procedure and treatment not carried out because of patient's decision for other reasons; E11.40 Type 2 diabetes mellitus with diabetic neuropathy, unspecified; Z91.81 History of falling; Z79.01 Long term (current) use of anticoagulants; Z79.4 Long term (current) use of insulin; R60.0 Localized edema
CPT/HCPCS: 36415; 73590; 80053; 81003; 83605; 83735; 85025; 87040; 96365; 99285; J0696

== ENCOUNTER 2025-05-18 03:55 | Inpatient (IN) | payer MEDICARE, SELFPAY ==
--- OUTSIDE RECORDS SUMMARY | 2025-05-06 13:30 | XMS_ITS | Encounter Summary ---
Author Organization [facility] Address [address] [place] [address] Care Team Providers Care Outside Sales Consultant Name Role Phone Carrol Sethi MD Primary Care Provider [phone] Jacquie Townsend Unavailable [phone] Melanie Gallegos LPN Unavailable Reason for Visit * Reason Comments Medication Problem He states he still d oes not have his insulin, it was going to cost him $700. Encounter Details Date Type Department Care Team (Late st Contact Info) Description 05/06/2025 1:30 PM EDT Office Visit [facility] [place] [facility] [address] [facility] [address] [place] [id number] Jacquie Townsend PA 112 [facility] [address] [place] [address] Type 2 diabetes mellitus with other specified complication, with long-term current use of insulin (HCC) (Primary Dx); Complex regional pain syndrome type 1, affecting unspecified site; Primary hypertension ; Primary insomnia; Moderate episode of recurrent major depressive disorder (HCC) Social History Tobacco Use Types Packs/Day Years Used Date Smoking Tobacco: Never Smokeless Tobacco: Never Alcohol Use Standard Drinks/Week Comments Not Currently 0 (1 standard drink = 0.6 oz pure alcohol) Caffeine intake: 1-2 cups per day coffee PHQ-2 Answer Date Recorded Patient Health Questionnaire-2 Score 2 05/06/2025 Sex and Gender Information Value Date Recorded Sex Assigned at Male 01/18/2024 4:05 AM EDT Legal Sex Male 7:17 PM EDT Gender Identity Male 01/18/2024 4:05 AM EDT Sexual Orientation Straight 01/18/2024 4: 05 AM EDT documented as of this encounter Last Filed Vital Signs Vital Sign Reading Time Taken Comments Blood Pressure 148/84 05/06/2025 1:44 PM EDT Pulse 74 05/06/2025 1:44 PM EDT Temperature - - Respiratory Rate 16 05/06/2025 1:44 PM EDT Oxygen Saturation 97% 05/06/2025 1:44 PM EDT Inhaled Oxygen Concentration - - Weight 95.3 kg (210 lb 3.2 oz) 05/06/2025 1:44 P M EDT Height 186.7 cm (6' 1.5 ) 05/06/2025 1:44 PM EDT Body Mass Index 27.36 05/06/2025 1:44 PM EDT documented in this encounter Functional Status * Over the past 2 weeks, how often have you been bothered by any of the following problems? Question Answer Date of Assessment Author Little interest or pleasure in doing things Several days 05/06/2025 1:46 PM EDT Danelle Klein LP N Feeling down, depressed, or hopeless Several days 05/06/2025 1:46 PM EDT Danelle Klein LP N Patient Health Questionnaire -2 Score 2 05/06/2025 1:46 PM EDT Danelle Klein LP N documented as of this encounter Progress Notes * MAIA Taylor - 05/06/2025 1:30 PM EDT Images from the original note were not included. HPI Medication Problem Additional comments: He states he still does not have his insulin, it was going to cost him $700. Last edited by Danelle Klein LPN on 05/06/2025 1:44 PM. Subjective Patient ID: Ross Martin is a 60 y.o. male who presents for depression. Ross is present today for follow up depression. He was referred to counseling at his last o/v. He is currently on Lamotrigine, Seroquel and Sertraline. He has not heard anything from [facility] and states he did not know anything about the referral. He does feel depressed but also feels like the meds are helping. He states he has uncorked a time capsule , he did go see a barrel drainer though.States ever since he fell at the gas station back in March he has been off ever since then. Stopped eating bad food. Has increased his water intake. Has been more active. Got a new truck in March. Did change the Metoprolol and Lasix to the morning. Sometimes forgets to take them, will get through part of the day and realize he hasn't taken his medications yet. Keeps his medications by his bed with a bottle of water. Sometimes uses a pillbox, sometimes forgets to fill it. Did not get the Austin monitor. Did see Wound Care for his leg. Having trouble sleeping. Sleeping 4 hours some nights. Over the past 2 weeks, how often have you been bothered by any of the following problems? Little interest or pleasure in doing things: Several days (currently on medication) Feeling down, depressed, or hopeless: Several days (currently on medication) Patient Health Questionnaire-2 Score: 2 Current Outpatient Medications on File Prior to Visit Medication Sig Dispense Refill Acetaminophen 500 MG capsule Take 2 tablets by mouth every 6 (six) hours if needed for mild pain. apixaban (Eliquis) 5 MG tablet Take 1 tablet (5 mg) by mouth in the morning and 1 tablet (5 mg) before bedtime. 60 tablet 0 cholecalciferol (Vitamin D-3) 125 MCG (5000 UT) capsule Take 1 capsule (125 mcg) by mouth Daily 100capsule 3 Continuous Glucose Sensor (FreeStyle Austin 3 Plus Sensor) misc 1 each every 14 (fourteen) days 12 each 3 Elastic Bandages & Supports (Medical Compression Stockings) misc 2 each Daily On in AM, off in PM. Dispense 2 pairs. 20-30 mmHg. 2 each 1 furosemide (Lasix) 20 MG tablet Take 1 tablet (20 mg) by mouth in the morning. gabapentin (Neurontin) 100 MG capsule Take 1 capsule (100 mg) by mouth in the morning and 1 capsule(100 mg) in the evening and 1 capsule (100 mg) before bedtime. Take with 800 mg dosage. 90 capsule 5 gabapentin (Neurontin) 800 MG tablet TAKE 1 TABLET BY MOUTH EVERY MORNING TAKE ONE TABLET BY MOUTH EVERY EVENING AND TAKE 1 TABLET BY MOUTH AT BEDTIME 90 tablet 5 glucose 4 g chewable tablet Chew 4 tablets (16 g) if needed for low blood sugar 40 tablet 2 insulin degludec (Tresiba FlexTouch) 200 UNIT/ML injection Inject 10 Units under the skin at bedtime 3 mL 11 lamoTRIgine (LaMICtal) 100 MG tablet Take 1 tablet (100 mg) by mouth Daily 100 tablet 3 metoprolol tartrate (Lopressor) 25 MG tablet Take 1 tablet (25 mg) by mouth in the morning. with food. OXcarbazepine (Trileptal) 150 MG tablet Take 1 tablet (150 mg) by mouth in the morning and 1 tablet(150 mg) before bedtime. 200 tablet 3 permethrin (Elimite) 5 % cream potassium chloride CR (Klor-Con M10) 10 MEQ ER tablet Take 1 tablet (10 mEq) by mouth Daily Do not crush or chew. 90 tablet 3 QUEtiapine (SEROquel) 100 MG tablet Take 1 tablet (100 mg) by mouth at bedtime 100 tablet 3 sennosides (Senokot) 8.6 MG tablet Take 2 tablets by mouth as needed at bedtime for constipation. sertraline (Zoloft) 100 MG tablet Take 1 tablet (100 mg) by mouth Daily 100 tablet 3 [DISCONTINUED] amoxicillin-clavulanate (Augmentin) 875-125 MG tablet Take 1 tablet by mouth in the morning and 1 tablet before bedtime. No current facility-administered medications on file prior to visit. I have reviewed and reconciled the history and medication list with the patient today. Allergies Allergen Reactions Cat Dander Social History Tobacco Use Smoking status: Never Smokeless tobacco: Never Vaping Use Vaping status: Never Used Substance Use Topics Alcohol use: Not Currently Comment: Caffeine intake: 1-2 cups per day coffee Drug use: Never Family History Problem Relation Name Age of Onset Atrial fibrillation Mother Stroke Mother Heart disease Mother Diabetes Mother Hypertension Mother Colon polyps Mother Parkinsonism Father Mental illness Father Colon cancer Paternal Grandfather Past Medical History: Diagnosis Date Abdominal pain Abnormal EMG 08/04/2021 Allergic rhinitis Anxiety COVID-19 11/01/2022 Depression Diabetes mellitus (HCC) Family history of cancer History of being hospitalized 06/18/2021 Freq. Falls, Pain, PE, LE Weakness Hx of echocardiogram 06/18/2021 EF 55-60% Hx of hernia repair Hypertension Mononucleosis Pneumonia Prostatitis Pulmonary embolism (HCC) 02/13/2024 Rectal hemorrhage 02/13/2024 Past Surgical History: Procedure Laterality Date VASECTOMY Visit Vitals BP 148/84 Pulse 74 Resp 16 Ht 6' 1.5 Wt 210 lb 3.2 oz SpO2 97% BMI 27.36 kg/m?? Smoking Status Never BSA 2.22 m?? Review of Systems Constitutional: Positive for fatigue. Negative for chills and fever. Respiratory: Negative for cough, shortness of breath and wheezing. Cardiovascular: Negative for chest pain, palpitations and leg swelling. Gastrointestinal: Negative for abdominal pain, constipation, diarrhea, nausea and vomiting. Skin: Positive for wound. Negative for rash. Psychiatric/Behavioral: Positive for sleep disturbance. Objective Physical Exam Constitutional: General: He is not in acute distress. Appearance: Normal appearance. HENT: Head: Normocephalic and atraumatic. Eyes: General: No scleral icterus. Cardiovascular: Rate and Rhythm: Normal rate and regular rhythm. Heart sounds: No murmur heard. Pulmonary: Effort: Pulmonary effort is normal. No respiratory distress. Breath sounds: Normal breath sounds. No wheezing, rhonchi or rales. Musculoskeletal: General: No swelling. Skin: General: Skin is warm and dry. Neurological: General: No focal deficit present. Mental Status: He is alert and oriented to person, place, and time. Gait: Gait abnormal (Walking stick for ambulation). Psychiatric: Mood and Affect: Mood normal. Behavior: Behavior normal. Assessment/Plan Diagnoses and all orders for this visit: Type 2 diabetes mellitus with other specified complication, with long-term current use of insulin ([facility]) - Glucose Blood (Blood Glucose Test) strip; 1 each by In Vitro route Daily Provided pt with prescription for test strips. He will need to let the pharmacy know what type of glucometer he has. He was unable to afford the Austin CGM. Patient spoke with Melanie Gallegos LPN, Care Management steam table associate today. He declines the Care Management services, but did agree to completing paperwork for patient assistance for Tresiba insulin. Complex regional pain syndrome type 1, affecting unspecified site Provided pt with phone number for Dr. Harpreet De León, Pain Management. He can reach out to their office to schedule an appointment. Primary hypertension BP is elevated today. He admits he is not good about taking his medications consistently. Encouraged him to be consistent with filling his pillbox and taking his medications daily. He is to take the Metoprolol in the morning. Primary insomnia Will continue to work on improving management of this condition. Will re- evaluate after increase inSeroquel. Moderate episode of recurrent major depressive disorder (HCC) - QUEtiapine (SEROquel) 25 MG tablet; Take 1 tablet (25 mg) by mouth at bedtime Take with the 100 mg tablet Increase Seroquel to 125 at bedtime. Will see if this improves his sleep quality and his mood. Willrecheck in one month. Provided pt with phone number for [facility]. He can reach out to their office to schedulean appointment. Follow up in about 4 weeks (around 06/03/2025) for Diabetes. documented in this encounter Plan of Treatment Upcoming Encounters Date Type Department Care Team (Late st Contact Info) Description 05/22/2025 3:00 PM EDT Office Visit [facility] [place] [address] [facility] [address] [place] [address] Jacquie Townsend PA [address] [facility] [address] [place] [address] documented as of this encounter Visit Diagnoses Diagnosis Type 2 diabetes mellitus with other specified complication, with long-term current use of insulin (HCC)- Primary Complex regional pain syndrome type 1, affecting unspecified site Primary hypertension Unspecified essential hypertension Primary insomnia Persistent disorder of initiating or maintaining sleep Moderate episode of recurrent major depressive disorder (HCC) documented in this encounter Additional Health Concerns Assessment Noted Time PHQ-9 Depression Total Score: 0 01/17/20 25 2:00 PM EDT documented as of this encounter Care Teams Outside Sales Consultant Relationship Specialty Start Date End Date Carrol Sethi MD [address] [facility] [address] [place] [address] PCP - General Family Medicine 01/18/23 Jacquie Townsend PA [address] [facility] [address] [place] [address] PCP - ACO Reach 10/19/24 Melanie Gallegos LPN 112 [facility] [address] [place] [address] 05/03/25 05/07/25 documented as of this encounter
--- OUTSIDE RECORDS SUMMARY | 2025-05-12 21:15 | XMS_ITS | Encounter Summary ---
Author Organization [facility] tem Address [id number] [address] [place] [address] Care Team Providers Care Commercial Airplane Pilot Name Role Phone Jacquie Townsend Primary Care Provider [phone] Reason for Visit * Reason Comments Fall Encounter Details Date Type Department Care Team (Late st Contact Info) Description 05/12/2025 9:15 PM EDT - 05/13/2025 12:[address] [facility] - Emergency [address] [place] [address] EpifanioArya, [address] [place] [address] Recurrent falls while walking (Primary Dx); Neck [...] joint, and bone pain ??? Discharge instructions (Burmese) * Preventing falls in adults (Burmese) documented in this encounter Medications at Time [...] from the original note were not included. [facility] Pt Name: Ross Martin [...] has not today. History provided by: Patient foreign language interpreter used: No Past Medical History: Past Medical History: Diagnosis Date DVT (deep venous thrombosis) ([facility]) Neuropathy Pulmonary embolism ([facility]) Past Surgical History: Past Surgical History: Procedure [...] No epistaxis or septal hematoma. Mouth/Throat: Lips: [place]. Mouth: Mucous membranes are moist. No injury, [...] Extra Urine Extra Urine Culture Extra Urine Dewy Rose CK Total Extra Tubes Lactate w/ Reflex [...] (05/13/2025 12:15 AM EDT) POC Urine Specific [place] 1.010 1.010, 1.015, 1.020, 1.025 05/13/2025 12:04 AM EDT [facility] POC Urine Leukocyte Esterase Negative Negative 05/13/2025 12:04 AM EDT [facility] POC Urine Nitrite Negative Negative 05/13/2025 12:04 AM EDT [facility] POC Urine pH 7.0 5.0, 6.0, 6.5, 7.0, 7.5, 8.0, 8.5, 5.5 05/13/2025 12:04 AM EDT [facility] POC Urine Protein Negative Negative 05/13/2025 12:04 AM EDT [facility] POC Urine Glucose Negative Negative 05/13/2025 12:04 AM EDT [facility] POC Urine Ketones Negative Negative 05/13/2025 12:04 AM EDT [facility] POC Urine Urobilinogen 0.2 E.U./dL 05/13/2025 12:04 AM EDT [facility] POC Urine Bilirubin Negative Negative 05/13/2025 12:04 AM EDT [facility] POC Urine Blood/HGB Negative Negative 05/13/2025 12:04 AM EDT [facility] Urine 05/13/2025 12:1 5 AM EDT 05/13/2025 12:04 AM EDT us Arya Godfrey DO POINT OF CARE TEST ORDERA BLES Final Result Performing Organization Address City/State/[facility] de Phone Number [facility] [address] [place] [address], * Extra Urine Dewy Rose (05/12/2025 11:59 PM EDT) Extra Tube Auto Resulted 05/13/2025 1:01 AM EDT [facility] Urine Urine specimen collection, clean catch / Unknown 05/12/2025 11:59 PM EDT 05/13/2025 12:21 AM EDT us Arya Godfrey DO URINE ORDERABLES Final Re sult Performing Organization Address [facility] Co de Phone Number [address] [place] [address], [place] * Extra Urine Culture (05/12/2025 11:59 PM EDT) Extra Tube Auto Resulted 05/13/2025 1:01 AM EDT [facility] Urine Urine specimen collection, clean catch / Unknown 05/12/2025 11:59 PM EDT 05/13/2025 12:21 AM EDT Arya Godfrey DO URINE ORDERABLES Final Re sult Performing Organization Address [facility] Co de Phone Number [address] [place] [address], [place] * Extra Urine (05/12/2025 11:59 PM EDT) Extra Tube Auto Resulted 05/13/2025 1:01 AM EDT [facility] Urine Urine specimen collection, clean catch / Unknown 05/12/2025 11:59 PM EDT 05/13/2025 12:21 AM EDT us Arya Godfrey DO URINE ORDERABLES Final Re sult Performing Organization Address [facility] Co de Phone Number [address] [place] [address], [place] * CT abdomen and pelvis with [...] Alexi Amaya MD on 05/12/2025 11:27 PM Arya Godfrey [...] - 2.0 mmol/L 05/12/2025 10:15 PM EDT [facility] Blood Venous blood / Unknown Venipuncture / Unknown 05/12/2025 9:54 PM EDT 05/12/2025 9:57 PM EDT Narrative [facility] - 05/12/2025 10:15 PM EDT Result did not trigger repeat Lactate, re-order if needed. us Arya Godfrey DO LAB BLOOD ORDERABLES Haleigh l Result [facility] [address] [facility] [place] [address], * Critical Care (05/12/2025 9:44 PM EDT) [...] - 99 mg/dL 05/12/2025 9:38 PM EDT [facility] arterial/capilla ry 05/12/2025 9:35 PM EDT 05/12/2025 9:38 PM EDT Arya Godfrey DO POINT OF CARE TEST ORDERA BLES Final Result Performing Organization Address City/[facility] Co de Phone Number [address] [place] [address], [place] * (ABNORMAL) CK Total (05/12/2025 9:32 PM EDT) CPK 253(H) 24 - 195 U/L 05/12/2025 9:55 PM EDT [facility] Blood Venous blood / Unknown Venipuncture / Unknown 05/12/2025 9:32 PM EDT 05/12/2025 9:34 PM EDT Arya Godfrey DO LAB BLOOD ORDERABLES Haleigh l Result Performing Organization Address City/[facility] Co de Phone Number [address] [place] [address], [place] * Magnesium (05/12/2025 9:32 PM EDT) MAGNESIUM 1.9 1.8 - 2.6 mg/dL 05/12/2025 9:55 PM EDT [facility] Blood Venous blood / Unknown Venipuncture / Unknown 05/12/2025 9:32 PM EDT 05/12/2025 9:34 PM EDT us Arya Godfrey DO LAB BLOOD ORDERABLES Haleigh l Result [facility] [address] [facility] [place] [address], [place] * (ABNORMAL) Comprehensive metabolic panel (05/12/2025 9:32 PM EDT) SODIUM 134 134 - 146 mmol/L 05/12/2025 9:55 PM EDT [facility] POTASSIUM 4.1 3.5 - 5.0 mmol/L 05/12/2025 9:55 PM EDT [facility] CHLORIDE 101 98 - 109 mmol/L 05/12/2025 9:55 PM EDT [facility] CARBON DIOXIDE 26 22 - 32 mmol/L 05/12/2025 9:55 PM EDT [facility] ANION GAP 7 5 - 15 mmol/L 05/12/2025 9:55 PM EDT [facility] BLOOD UREA NITROGEN 14 5 - 27 mg/dL 05/12/2025 9:55 PM EDT [facility] CREATININE 0.98 0.70 - 1.20 mg/dL 05/12/2025 9:55 PM EDT [facility] Comment:METHOD TRACEABLE TO IDMS STANDARD GLUCOSE 275(H) 65 - 99 mg/dL 05/12/2025 9:55 PM EDT [facility] CALCIUM 9.3 8.5 - 10.5 mg/dL 05/12/2025 9:55 PM EDT [facility] TOTAL PROTEIN 7.1 6.0 - 8.0 g/dL 05/12/2025 9:55 PM EDT [facility] ALBUMIN 4.0 3.2 - 5.3 g/dL 05/12/2025 9:55 PM EDT [facility] ALKALINE PHOSPHATASE 55 39 - 130 U/L 05/12/2025 9:55 PM EDT [facility] AST 26 <=41 U/L 05/12/2025 9:55 PM EDT [facility] ALT 24 <=40 U/L 05/12/2025 9:55 PM EDT [facility] BILIRUBIN,TOTAL 0.8 0.3 - 1.2 mg/dL 05/12/2025 9:55 PM EDT [facility] EGFR Non-Race Dependent 87 >=60 ml/min/1.7 3sq.m 05/12/2025 9:55 PM EDT [facility] Comment: eGFR not reported due to non-numeric value for Creatinine. Reported eGFR is based on the CKD-EPI 2020 equation that does not use a race coefficient. Blood Venous blood / Unknown Venipuncture / Unknown 05/12/2025 9:32 PM EDT 05/12/2025 9:34 PM EDT Arya aBrger Epifanio DO LAB BLOOD ORDERABLES Haleigh l Result Performing Organization Address City/[facility] Co de Phone Number [address] [place] [address], [place] * Ethanol (05/12/2025 9:32 PM EDT) ETHANOL <0.010 <=0.080 g/dL 05/12/2025 9:55 PM EDT [facility] Comment: This report is intended for use in clinical monitoring or management of patients. Blood Venous blood / Unknown Venipuncture / Unknown 05/12/2025 9:32 PM EDT 05/12/2025 9:34 PM EDT Arya Barger Epifanio DO LAB BLOOD ORDERABLES Haleigh l Result Performing Organization Address City/[facility] Co de Phone Number [address] [place] [address], [place] * CBC auto differential (05/12/2025 9:32 PM EDT) [facility] Signature WBC 6.3 4 - 11 x10E9/L 05/12/2025 9:53 PM EDT [facility] RBC Count 4.72 4.1 - 5.7 X10E12/L 05/12/2025 9:53 PM EDT [facility] Hemoglobin 14.3 13 - 17 g/dL 05/12/2025 9:53 PM EDT [facility] Hematocrit 42.0 39 - 50 % 05/12/2025 9:53 PM EDT [facility] MCV 89 80 - 100 fL 05/12/2025 9:53 PM EDT [facility] MCH 30.4 27 - 34 pg 05/12/2025 9:53 PM EDT [facility] MCHC 34.1 32 - 36 g/dL 05/12/2025 9:53 PM EDT [facility] RDW 14.0 11.5 - 15 % 05/12/2025 9:53 PM EDT [facility] Platelet Count 207 150 - 450 X10E9/L 05/12/2025 9:53 PM EDT [facility] MPV 7.3 7 - 12 fL 05/12/2025 9:53 PM EDT [facility] Neutrophils % 69.0 % 05/12/2025 9:53 PM EDT [facility] Lymphocytes % 18.4 % 05/12/2025 9:53 PM EDT [facility] Monocytes % 9.5 % 05/12/2025 9:53 PM EDT [facility] Eosinophils % 1.7 % 05/12/2025 9:53 PM EDT [facility] Basophils % 1.4 % 05/12/2025 9:53 PM EDT [facility] Neutrophils Absolute (A) 4.4 1.5 - 6.6 10*3/uL 05/12/2025 9:53 PM EDT [facility] Lymphocytes Absolute 1.2 1.0 - 3.5 10*3/uL 05/12/2025 9:53 PM EDT [facility] Monocytes Absolute 0.6 0.0 - 0.9 10*3/uL 05/12/2025 9:53 PM EDT [facility] Eosinophils Absolute 0.1 0.0 - 0.4 10*3/uL 05/12/2025 9:53 PM EDT [facility] Basophils Absolute 0.1 0.0 - 0.2 10*3/uL 05/12/2025 9:53 PM EDT [facility] Differential Type AUTOMATED DIFFERENTIAL 05/12/2025 9:53 PM EDT [facility] Blood Venous blood / Unknown Venipuncture / Unknown 05/12/2025 9:32 PM EDT 05/12/2025 9:34 PM EDT us Arya Godfrey DO LAB BLOOD ORDERABLES Haleigh l Result [facility] [address] [place] [address], documented in this encounter Visit Diagnoses Diagnosis [...] dose, VESICANT (RED) 2327 (Given - Provider: Kristin Barnhart, [id number]) sodium chloride 0.9 % flush 10 mL 10 mL, intravenous, As needed, line care, Starting on 05/12/25 at 2326 2328 (Given - Provider: FARRAH Edgar) sodium chloride 0.9 % radiology injection (COMPLETED) 80 mL, intravenous, Once in imaging, pre/post contrast, Starting on 05/12/25 at 2326, For 1 dose 2327 (Given - Provider: FARRAH Edgar) documented in this encounter Care Teams Commercial Airplane Pilot Relationship Specialty Start Date End Date Jacquie Townsend PA PCP - General Physician Veneer Taping Machine Operator 11/01/22 documented as of this encounter
--- OUTSIDE RECORDS SUMMARY | 2025-05-18 04:06 | XMS_ITS | Clinical Summary ---
Author Organization [employer] Address [id number] [address] [place] [address] Care Team Providers Care Quality Control Manager Name Role Phone Jacquie Townsend Primary Care Provider [phone] Allergies No known active allergies Medications gabapentin [...] EDT - 05/13/2025 12:48 AM EDT Emergency [facility] - Emergency [address] [place] [address] Arya Godfrey, Recurrent falls while walking (Primary [...] (05/13/2025 12:15 AM EDT) POC Urine Specific Varina 1.010 1.010, 1.015, 1.020, 1.025 05/13/2025 12:04 AM EDT [facility] POC Urine Leukocyte Esterase Negative Negative 05/13/2025 12:04 AM EDT [facility] POC Urine Nitrite Negative Negative 05/13/2025 12:04 AM EDT [facility] POC Urine pH 7.0 5.0, 6.0, 6.5, 7.0, 7.5, 8.0, 8.5, 5.5 05/13/2025 12:04 AM EDT [facility] POC Urine Protein Negative Negative 05/13/2025 12:04 AM EDT [facility] POC Urine Glucose Negative Negative 05/13/2025 12:04 AM EDT [facility] POC Urine Ketones Negative Negative 05/13/2025 12:04 AM EDT [facility] POC Urine Urobilinogen 0.2 E.U./dL 05/13/2025 12:04 AM EDT [facility] POC Urine Bilirubin Negative Negative 05/13/2025 12:04 AM EDT [facility] POC Urine Blood/HGB Negative Negative 05/13/2025 12:04 AM EDT [facility] Urine 05/13/2025 12:1 5 AM EDT 05/13/2025 12:04 AM EDT us Arya Godfrey DO POINT OF CARE TEST ORDERA BLES Final Result Performing Organization Address City/[facility]/ZIP Co de Phone Number [address] [place] [address], [place] * Extra Urine [place] (05/12/2025 11:59 PM EDT) Extra Tube Auto Resulted 05/13/2025 1:01 AM EDT [facility] Urine Urine specimen collection, clean catch / Unknown 05/12/2025 11:59 PM EDT 05/13/2025 12:21 AM EDT us Arya Godfrey DO URINE ORDERABLES Final Re sult Performing Organization Address [facility]/ZIP Co de Phone Number [address] [place] [address], [place] * Extra Urine Culture (05/12/2025 11:59 PM EDT) Extra Tube Auto Resulted 05/13/2025 1:01 AM EDT [facility] Urine Urine specimen collection, clean catch / Unknown 05/12/2025 11:59 PM EDT 05/13/2025 12:21 AM EDT us Arya Godfrey DO URINE ORDERABLES Final Re sult Performing Organization Address City/[facility]/ZIP Co de Phone Number [address] [place] [address], [place] * Extra Urine (05/12/2025 11:59 PM EDT) Extra Tube Auto Resulted 05/13/2025 1:01 AM EDT [facility] Urine Urine specimen collection, clean catch / Unknown 05/12/2025 11:59 PM EDT 05/13/2025 12:21 AM EDT us Arya Godfrey DO URINE ORDERABLES Final Re sult [facility] [address] [place] [address], [place] * CT chest with contrast (05/12/2025 [...] - 2.0 mmol/L 05/12/2025 10:15 PM EDT [facility] Blood Venous blood / Unknown Venipuncture / Unknown 05/12/2025 9:54 PM EDT 05/12/2025 9:57 PM EDT Narrative [facility] - 05/12/2025 10:15 PM EDT Result did not trigger repeat Lactate, re-order if needed. Arya Godfrey DO LAB BLOOD ORDERABLES Haleigh l Result Performing Organization Address [facility]/ZIP Co de Phone Number [address] [place] [address], * Critical Care (05/12/2025 9:44 PM EDT) [...] - 99 mg/dL 05/12/2025 9:38 PM EDT [facility] arterial/capilla ry 05/12/2025 9:35 PM EDT 05/12/2025 9:38 PM EDT Arya Godfrey DO POINT OF CARE TEST ORDERA BLES Final Result Performing Organization Address [facility]/ZIP Co de Phone Number [address] [place] [address], [place] * CBC auto differential (05/12/2025 9:32 PM EDT) WBC 6.3 4 - 11 x10E9/L 05/12/2025 9:53 PM EDT [facility] RBC Count 4.72 4.1 - 5.7 X10E12/L 05/12/2025 9:53 PM EDT [facility] Hemoglobin 14.3 13 - 17 g/dL 05/12/2025 9:53 PM EDT [facility] Hematocrit 42.0 39 - 50 % 05/12/2025 9:53 PM EDT [facility] MCV 89 80 - 100 fL 05/12/2025 9:53 PM EDT [facility] MCH 30.4 27 - 34 pg 05/12/2025 9:53 PM EDT [facility] MCHC 34.1 32 - 36 g/dL 05/12/2025 9:53 PM EDT [facility] RDW 14.0 11.5 - 15 % 05/12/2025 9:53 PM EDT [facility] Platelet Count 207 150 - 450 X10E9/L 05/12/2025 9:53 PM EDT [facility] MPV 7.3 7 - 12 fL 05/12/2025 9:53 PM EDT [facility] Neutrophils % 69.0 % 05/12/2025 9:53 PM EDT [facility] Lymphocytes % 18.4 % 05/12/2025 9:53 PM EDT [facility] Monocytes % 9.5 % 05/12/2025 9:53 PM EDT [facility] Eosinophils % 1.7 % 05/12/2025 9:53 PM EDT [facility] Basophils % 1.4 % 05/12/2025 9:53 PM EDT [facility] Neutrophils Absolute (A) 4.4 1.5 - 6.6 10*3/uL 05/12/2025 9:53 PM EDT [facility] Lymphocytes Absolute 1.2 1.0 - 3.5 10*3/uL 05/12/2025 9:53 PM EDT [facility] Monocytes Absolute 0.6 0.0 - 0.9 10*3/uL 05/12/2025 9:53 PM EDT [facility] Eosinophils Absolute 0.1 0.0 - 0.4 10*3/uL 05/12/2025 9:53 PM EDT [facility] Basophils Absolute 0.1 0.0 - 0.2 10*3/uL 05/12/2025 9:53 PM EDT [facility] Differential Type AUTOMATED DIFFERENTIAL 05/12/2025 9:53 PM EDT [facility] Blood Venous blood / Unknown Venipuncture / Unknown 05/12/2025 9:32 PM EDT 05/12/2025 9:34 PM EDT Arya Godfrey DO LAB BLOOD ORDERABLES Haleigh l Result Performing Organization Address City/[facility]/ZIP Co de Phone Number [address] [place] [address], [place] * Magnesium (05/12/2025 9:32 PM EDT) [facility] MAGNESIUM 1.9 1.8 - 2.6 mg/dL 05/12/2025 9:55 PM EDT [facility] Blood Venous blood / Unknown Venipuncture / Unknown 05/12/2025 9:32 PM EDT 05/12/2025 9:34 PM EDT Arya Godfrey DO LAB BLOOD ORDERABLES Haleigh l Result [address] [place] [address], [place] * (ABNORMAL) CK Total (05/12/2025 9:32 PM EDT) Pathologist [facility] CPK 253(H) 24 - 195 U/L 05/12/2025 9:55 PM EDT [facility] Blood Venous blood / Unknown Venipuncture / Unknown 05/12/2025 9:32 PM EDT 05/12/2025 9:34 PM EDT [facility] BLOOD ORDERABLES Haleigh l Result Performing Organization Address [facility] Co de Phone Number [address] [place] [address], [place] * Ethanol (05/12/2025 9:32 PM EDT) ETHANOL <0.010 <=0.080 g/dL 05/12/2025 9:55 PM EDT [facility] Comment: This report is intended for use in clinical monitoring or management of patients. Blood Venous blood / Unknown Venipuncture / Unknown 05/12/2025 9:32 PM EDT 05/12/2025 9:34 PM EDT Arya Godfrey LAB BLOOD ORDERABLES Haleigh l Result Performing Organization Address [facility] de Phone Number [address] [place] [address], [place] * (ABNORMAL) Comprehensive metabolic panel (05/12/2025 9:32 PM EDT) Pathologist [facility] SODIUM 134 134 - 146 mmol/L 05/12/2025 9:55 PM EDT [facility] POTASSIUM 4.1 3.5 - 5.0 mmol/L 05/12/2025 9:55 PM EDT [facility] CHLORIDE 101 98 - 109 mmol/L 05/12/2025 9:55 PM EDT [facility] CARBON DIOXIDE 26 22 - 32 mmol/L 05/12/2025 9:55 PM EDT [facility] ANION GAP 7 5 - 15 mmol/L 05/12/2025 9:55 PM EDT [facility] BLOOD UREA NITROGEN 14 5 - 27 mg/dL 05/12/2025 9:55 PM EDT [facility] CREATININE 0.98 0.70 - 1.20 mg/dL 05/12/2025 9:55 PM EDT [facility] Comment:METHOD TRACEABLE TO IDND STANDARD GLUCOSE 275(H) 65 - 99 mg/dL 05/12/2025 9:55 PM EDT [facility] CALCIUM 9.3 8.5 - 10.5 mg/dL 05/12/2025 9:55 PM EDT [facility] TOTAL PROTEIN 7.1 6.0 - 8.0 g/dL 05/12/2025 9:55 PM EDT [facility] ALBUMIN 4.0 3.2 - 5.3 g/dL 05/12/2025 9:55 PM EDT [facility] ALKALINE PHOSPHATASE 55 39 - 130 U/L 05/12/2025 9:55 PM EDT [facility] AST 26 <=41 U/L 05/12/2025 9:55 PM EDT [facility] ALT 24 <=40 U/L 05/12/2025 9:55 PM EDT [facility] BILIRUBIN,TOTAL 0.8 0.3 - 1.2 mg/dL 05/12/2025 9:55 PM EDT [facility] EGFR Non-Race Dependent 87 >=60 ml/min/1.7 3sq.m 05/12/2025 9:55 PM EDT [facility] Comment: eGFR not reported due to non-numeric value for Creatinine. Reported eGFR is based on the CKD-EPI 2020 equation that does not use a race coefficient. Blood Venous blood / Unknown Venipuncture / Unknown 05/12/2025 9:32 PM EDT 05/12/2025 9:34 PM EDT us Arya Godfrey DO LAB BLOOD ORDERABLES Haleigh l Result [facility] [address] [facility] [place] [address], [place] from Last 3 Months Insurance MEDICARE Care Teams Quality Control Manager Relationship Specialty Start Date End Date Jacquie Townsend PA PCP - General Physician Section Supervisor 11/01/22
--- OUTSIDE RECORDS SUMMARY | 2025-05-18 04:06 | XMS_ITS | Encounter Summary ---
Author Organization [facility] Address [address] [place] [address] Care Team Providers Care Clinical Documentation Consultant Name Role Phone Carrol Sethi MD Primary Care Provider Jacquie Townsend PA Unavailable [phone] Melanie Gallegos LPN Unavailable Encounter Details Date Type Department Care Team (Late Contact Info) Description 01/09/2025 Abstract [facility] [place] [address] [facility] 110 [place] [address] Carrol Sethi MD [address] [facility] 110 [place] [address] Social History Tobacco Use Types Packs/Day Years [...] PM EDT Office Visit [facility] [place] [facility] [address] [facility] 110 [place] [address] Jacquie Townsend PA [address] [facility] [address] [place] [address] documented as of this encounter Visit Diagnoses Not on filedocumented in this encounter Additional Health Concerns Assessment Noted Time PHQ-9 Depression Total Score: 0 01/16/20 24 1:00 PM EDT documented as of this encounter Care Teams Clinical Documentation Consultant Relationship Specialty Start Date End Date Carrol Sethi MD [address] [facility] [address] [place] [address] PCP - General Family Medicine 01/18/23 Jacquie Townsend PA [address] [facility] [address] [place] [address] PCP - ACO Reach 10/19/24 Melanie Gallegos LPN [address] [facility] [address] [place] [address] 05/03/25 05/07/25 documented as of this encounter
--- OUTSIDE RECORDS SUMMARY | 2025-05-18 04:06 | XMS_ITS | Encounter Summary ---
Author Organization [facility] Address [address] [facility] [place] [address] Care Team Providers Care Hander In Name Role Phone Carrol Sethi MD Primary Care Provider [phone] Jacquie Townsend Unavailable [phone] Melanie Gallegos LPN Unavailable Encounter Details Date Type Department Care Team (Late Contact Info) Description 04/12/2025 Abstract [facility] [address] [place] [id number] Solitario Simmons, DPM FACFAS [address] [facility] [place] [address] Social History Tobacco Use Types [...] 3:00 PM EDT Office Visit [facility] [place] [facility] [address] [facility] [address] [place] [id number] Jacquie Townsend PA [address] [facility] [address] [place] [address] documented as of this encounter Visit Diagnoses Not on filedocumented in this encounter Additional Health Concerns Assessment Noted Time PHQ-9 Depression Total Score: 0 01/17/20 25 2:00 PM EDT documented as of this encounter Care Teams Hander In Relationship Specialty Start Date End Date Carrol Sethi MD [address] [facility] [address] [place] [address] PCP - General Family Medicine 01/18/23 Jacquie Townsend PA [address] [facility] [address] [place] [address] PCP - ACO Reach 10/19/24 Melanie Gallegos LPN [address] [facility] [address] [place] [address] 05/03/25 05/07/25 documented as of this encounter
--- OUTSIDE RECORDS SUMMARY | 2025-05-18 04:06 | XMS_ITS | Encounter Summary ---
Author Organization [facility] Address [address] [place] [address] Care Team Providers Care High Speed Printer Operator Name Role Phone Carrol Sethi MD Primary Care Provider [phone] Jacquie Townsend Unavailable [phone] Melanie Gallegos LPN Unavailable Encounter Details Date Type Department Care Team (Late st Contact Info) Description 04/09/2025 Abstract [facility] [place] [facility] [address] [facility] 110 [place] [address] Carrol Sethi MD [address] [facility] 110 [place] [address] Social History Tobacco Use Types Packs/Day Years [...] [facility] [place] [address] [facility] [address] [place] [address] Jacquie Townsend PA [address] [facility] [address] [place] [address] documented as of this encounter Visit Diagnoses Not on filedocumented in this encounter Additional Health Concerns Assessment Noted Time PHQ-9 Depression Total Score: 0 01/17/20 2:00 PM EDT documented as of this encounter Care Teams High Speed Printer Operator Relationship Specialty Start Date End Date Carrol Sethi MD [address] [facility] [address] [place] [address] PCP - General Family Medicine 01/18/23 Jacquie Townsend PA [address] [facility] [address] [place] [address] PCP - ACO Reach 10/19/24 Melanie Gallegos LPN [address] [facility] [address] [place] [address] 05/03/25 05/07/25 documented as of this encounter
--- OUTSIDE RECORDS SUMMARY | 2025-05-18 04:06 | XMS_ITS | Encounter Summary ---
Author Organization [facility] Address [address] [place] [address] Care Team Providers Care Filter Tender Jelly Name Role Phone Carrol Sethi MD Primary Care Provider [phone] Jacquie Townsend PA Unavailable [phone] Melanie Gallegos LPN Unavailable Encounter Details Date Type Department Care Team (Late Contact Info) Description 03/21/2025 Abstract [facility] [place] [address] [facility] 110 [place] [address] Carrol Sethi MD [address] [facility] 110 [place] [address] Social History Tobacco Use Types Packs/Day Years [...] PM EDT Office Visit [facility] [place] [facility] [address] [facility] 110 [place] [address] Jacquie Townsend PA [address] [facility] [address] [place] [address] documented as of this encounter Visit Diagnoses Not on filedocumented in this encounter Additional Health Concerns Assessment Noted Time PHQ-9 Depression Total Score: 0 01/17/20 25 2:00 PM EDT documented as of this encounter Care Teams Filter Tender Jelly Relationship Specialty Start Date End Date Carrol Sethi MD [address] [facility] [address] [place] [address] PCP - General Family Medicine 01/18/23 Jacquie Townsend PA [address] [facility] [address] [place] [address] PCP - ACO Reach 10/19/24 Melanie Gallegos LPN [address] [facility] [address] [place] [address] 05/03/25 05/07/25 documented as of this encounter
--- OUTSIDE RECORDS SUMMARY | 2025-05-18 04:06 | XMS_ITS | Encounter Summary ---
Author Organization [facility] Address [address] [place] [address] Care Team Providers Care Permit Technician Name Role Phone Carrol Sethi MD Primary Care Provider [phone] Jacquie Townsend PA Unavailable [phone] Melanie Gallegos LPN Unavailable Encounter Details Date Type Department Care Team (Late Contact Info) Description 04/04/2025 Abstract [facility] [place] [address] [facility] 110 [place] [address] Carrol Sethi MD [address] [facility] 110 [place] [address] Social History Tobacco Use Types Packs/Day Years [...] PM EDT Office Visit [facility] [place] [facility] [address] [facility] 110 [place] [address] Jacquie Townsend PA [address] [facility] [address] [place] [address] documented as of this encounter Visit Diagnoses Not on filedocumented in this encounter Additional Health Concerns Assessment Noted Time PHQ-9 Depression Total Score: 0 01/17/20 25 2:00 PM EDT documented as of this encounter Care Teams Permit Technician Relationship Specialty Start Date End Date Carrol Sethi MD [address] [facility] [address] [place] [address] PCP - General Family Medicine 01/18/23 Jacquie Townsend PA [address] [facility] [address] [place] [address] PCP - ACO Reach 10/19/24 Melanie Gallegos LPN [address] [facility] [address] [place] [address] 05/03/25 05/07/25 documented as of this encounter
--- OUTSIDE RECORDS SUMMARY | 2025-05-18 04:06 | XMS_ITS | Encounter Summary ---
Author Organization [facility] Address [address] [place] [address] Care Team Providers Care Field Auditor Name Role Phone Carrol Sethi MD Primary Care Provider Jacquie Townsend PA Unavailable [phone] Melanie Gallegos LPN Unavailable Encounter Details Date Type Department Care Team (Late Contact Info) Description 04/15/2025 Abstract [facility] [place] [address] [facility] 110 [place] [address] Carrol Sethi MD [address] [facility] 110 [place] [address] Social History Tobacco Use Types Packs/Day Years [...] PM EDT Office Visit [facility] [place] [facility] [address] [facility] 110 [place] [address] Jacquie Townsend PA [address] [facility] [address] [place] [address] documented as of this encounter Visit Diagnoses Not on filedocumented in this encounter Additional Health Concerns Assessment Noted Time PHQ-9 Depression Total Score: 0 01/17/20 25 2:00 PM EDT documented as of this encounter Care Teams Field Auditor Relationship Specialty Start Date End Date Carrol Sethi MD [address] [facility] [address] [place] [address] PCP - General Family Medicine 01/18/23 Jacquie Townsend PA [address] [facility] [address] [place] [address] PCP - ACO Reach 10/19/24 Melanie Gallegos LPN [address] [facility] [address] [place] [address] 05/03/25 05/07/25 documented as of this encounter
--- OUTSIDE RECORDS SUMMARY | 2025-05-18 04:06 | XMS_ITS ---
Author Organization [facility] Address [address] [place] [address] Care Team Providers Care Wet Process Operator Name Role Phone Carrol Sethi MD Primary Care Provider [phone] Jacquie Townsend Unavailable [phone] Emergency Department Transitional Care Management (TCM) Status:Closed (Closed) Start date:05/13/2025 Enrollment date:05/14/2025 Enrollment reason:Identified using hospital discharge data End date:05/14/2025 Close reason:Assistance not needed Overview Discharged from [facility] ER on 05/13. Please contact within 2 days of discharge for ER MILENA and schedule a follow-up appointment if needed. Continued Care and Services Coordination
--- OUTSIDE RECORDS SUMMARY | 2025-05-18 04:06 | XMS_ITS | Encounter Summary ---
Author Organization [facility] Address [address] [place] [address] Care Team Providers Care Button Tufter Name Role Phone Carrol Sethi MD Primary Care Provider [phone] Jacquie Townsend PA Unavailable [phone] Melanie Gallegos LPN Unavailable Encounter Details Date Type Department Care Team (Late Contact Info) Description 04/03/2025 Abstract [facility] [place] [address] [facility] 110 [place] [address] Carrol Sethi MD [address] [facility] 110 [place] [address] Social History Tobacco Use Types Packs/Day Years [...] PM EDT Office Visit [facility] [place] [facility] [address] [facility] 110 [place] [address] Jacquie Townsend PA [address] [facility] 110 [place] [address] documented as of this encounter Visit Diagnoses Not on filedocumented in this encounter Additional Health Concerns Assessment Noted Time PHQ-9 Depression Total Score: 0 01/17/20 25 2:00 PM EDT documented as of this encounter Care Teams Button Tufter Relationship Specialty Start Date End Date Carrol Sethi MD [address] [facility] [address] [place] [address] PCP - General Family Medicine 01/18/23 Jacquie Townsend PA [address] [facility] [address] [place] [address] PCP - ACO Reach 10/19/24 Melanie Gallegos LPN [address] [facility] [address] [place] [address] 05/03/25 05/07/25 documented as of this encounter
--- OUTSIDE RECORDS SUMMARY | 2025-05-18 04:06 | XMS_ITS | Encounter Summary ---
Author Organization [facility] Address [address] [place] [address] Care Team Providers Care Internal Control Manager Name Role Phone Carrol Sethi MD Primary Care Provider [phone] Jacquie Townsend PA Unavailable [phone] Melanie Gallegos LPN Unavailable Encounter Details Date Type Department Care Team (Late Contact Info) Description 03/21/2025 Abstract [facility] [place] [address] [facility] 110 [place] [address] Carrol Sethi MD [address] [facility] 110 [place] [address] Social History Tobacco Use Types Packs/Day Years [...] PM EDT Office Visit [facility] [place] [facility] [address] [facility] 110 [place] [address] Jacquie Townsend PA [address] [facility] 110 [place] [address] documented as of this encounter Visit Diagnoses Not on filedocumented in this encounter Additional Health Concerns Assessment Noted Time PHQ-9 Depression Total Score: 0 01/17/20 25 2:00 PM EDT documented as of this encounter Care Teams Internal Control Manager Relationship Specialty Start Date End Date Carrol Sethi MD [address] [facility] [address] [place] [address] PCP - General Family Medicine 01/18/23 Jacquie Townsend PA [address] [facility] [address] [place] [address] PCP - ACO Reach 10/19/24 Melanie Gallegos LPN [address] [facility] [address] [place] [address] 05/03/25 05/07/25 documented as of this encounter
--- OUTSIDE RECORDS SUMMARY | 2025-05-18 04:06 | XMS_ITS | Encounter Summary ---
Author Organization [facility] Address [address] [facility] [place] [address] Care Team Providers Care Porter Baggage Name Role Phone Carrol Sethi MD Primary Care Provider [phone] Jacquie Townsend Unavailable [phone] Melanie Gallegos LPN Unavailable Encounter Details Date Type Department Care Team (Late Contact Info) Description 04/24/2025 Abstract [facility] [address] [place] [id number] Solitario Simmons, DPM FACFAS [address] [place] [address] Social History Tobacco Use Types [...] 3:00 PM EDT Office Visit [facility] [place] [facility] 112 [facility] [address] [place] [phone] Jacquie Townsend PA [address] [facility] 110 [place] [address] documented as of this encounter Visit Diagnoses Not on filedocumented in this encounter Additional Health Concerns Assessment Noted Time PHQ-9 Depression Total Score: 0 01/17/20 25 2:00 PM EDT documented as of this encounter Care Teams Porter Baggage Relationship Specialty Start Date End Date Carrol Sethi MD [address] [facility] 110 [place] [address] PCP - General Family Medicine 01/18/23 Jacquie Townsend PA [address] [facility] 110 [place] [address] PCP - ACO Reach 10/19/24 Melanie Gallegos LPN [address] [facility] 110 [place] [address] 05/03/25 05/07/25 documented as of this encounter
--- OUTSIDE RECORDS SUMMARY | 2025-05-18 04:06 | XMS_ITS | Encounter Summary ---
Author Organization [facility] Address [address] [place] [address] Care Team Providers Care Gut Puller Name Role Phone Carrol Sethi MD Primary Care Provider [phone] Jacquie Townsend PA Unavailable [phone] Melanie Gallegos LPN Unavailable Encounter Details Date Type Department Care Team (Late Contact Info) Description 04/04/2025 Abstract [facility] [place] [address] [facility] 110 [place] [address] Carrol Sethi MD [address] [facility] 110 [place] [address] Social History Tobacco Use Types Packs/Day Years [...] PM EDT Office Visit [facility] [place] [facility] [address] [facility] [address] [place] [address] Jacquie Townsend PA [address] [facility] 110 [place] [address] documented as of this encounter Visit Diagnoses Not on filedocumented in this encounter Additional Health Concerns Assessment Noted Time PHQ-9 Depression Total Score: 0 01/17/20 25 2:00 PM EDT documented as of this encounter Care Teams Gut Puller Relationship Specialty Start Date End Date Carrol Sethi MD [address] [facility] 110 [place] [address] PCP - General Family Medicine 01/18/23 Jacquie Townsend PA [address] [facility] 110 [place] [address] PCP - ACO Reach 10/19/24 Melanie Gallegos LPN [address] [facility] [address] [place] [address] 05/03/25 05/07/25 documented as of this encounter
--- OUTSIDE RECORDS SUMMARY | 2025-05-18 04:06 | XMS_ITS | Encounter Summary ---
Author Organization [facility] Address [address] [place] [address] Care Team Providers Care Seamless Tube Drawer Name Role Phone Carrol Sethi MD Primary Care Provider [phone] Jacquie Townsend PA Unavailable [phone] Melanie Gallegos LPN Unavailable Encounter Details Date Type Department Care Team (Late Contact Info) Description 01/21/2025 Abstract [facility] [place] 112 [facility] 110 [place] [address] Carrol Sethi MD [address] [facility] 110 [place] [address] Social History Tobacco Use Types Packs/Day Years [...] PM EDT Office Visit [facility] [place] [facility] [address] [facility] 110 [place] [address] Jacquie Townsend PA [address] [facility] 110 [place] [address] documented as of this encounter Visit Diagnoses Not on filedocumented in this encounter Additional Health Concerns Assessment Noted Time PHQ-9 Depression Total Score: 0 01/17/20 25 2:00 PM EDT documented as of this encounter Care Teams Seamless Tube Drawer Relationship Specialty Start Date End Date Carrol Sethi MD [address] [facility] [address] [place] [address] PCP - General Family Medicine 01/18/23 Jacquie Townsend PA [address] [facility] [address] [place] [address] PCP - ACO Reach 10/19/24 Melanie Gallegos LPN [address] [facility] [address] [place] [address] 05/03/25 05/07/25 documented as of this encounter
--- OUTSIDE RECORDS SUMMARY | 2025-05-18 04:06 | XMS_ITS ---
Author Organization [facility] Address [address] [place] [address] Care Team Providers Care Buttermilk Drier Operator Name Role Phone Carrol Sethi MD Primary Care Provider Jacquie Townsend PA Unavailable [phone] Chronic Care Management (CCM) Status:Declined (Declined) Start date:05/03/2025 Enrollment reason:Identified as high-risk End date:05/07/2025 Decline reason:Patient declined Continued Care and Services Coordination
--- OUTSIDE RECORDS SUMMARY | 2025-05-18 04:06 | XMS_ITS | Encounter Summary ---
Author Organization [facility] Address [address] [place] [address] Care Team Providers Care Irrigating Pump Operator Name Role Phone Carrol Sethi MD Primary Care Provider [phone] Jacquie Townsend PA Unavailable [phone] Melanie Gallegos LPN Unavailable Encounter Details Date Type Department Care Team (Late Contact Info) Description 03/25/2025 Abstract [facility] [place] [address] [facility] 110 [place] [address] Carrol Sethi MD [address] [facility] 110 [place] [address] Social History Tobacco Use Types Packs/Day Years [...] PM EDT Office Visit [facility] [place] [facility] [address] [facility] 110 [place] [address] Jacquie Townsend PA [address] [facility] 110 [place] [address] documented as of this encounter Visit Diagnoses Not on filedocumented in this encounter Additional Health Concerns Assessment Noted Time PHQ-9 Depression Total Score: 0 01/17/20 25 2:00 PM EDT documented as of this encounter Care Teams Irrigating Pump Operator Relationship Specialty Start Date End Date Carrol Sethi MD [address] [facility] 110 [place] [address] PCP - General Family Medicine 01/18/23 Jacquie Townsend PA [address] [facility] 110 [place] [address] PCP - ACO Reach 10/19/24 Melanie Gallegos LPN [address] [facility] 110 [place] [address] 05/03/25 05/07/25 documented as of this encounter
--- OUTSIDE RECORDS SUMMARY | 2025-05-18 04:06 | XMS_ITS | Encounter Summary ---
Author Organization [facility] Address [address] [place] [address] Care Team Providers Care Compliance Quality Performance Analyst Name Role Phone Carrol Sethi MD Primary Care Provider [phone] Jacquie Townsend PA Unavailable [phone] Melanie Gallegos LPN Unavailable Encounter Details Date Type Department Care Team (Late Contact Info) Description 01/09/2025 Abstract [facility] [place] 112 [facility] 110 [place] [address] Carrol Sethi MD [address] [facility] 110 [place] [address] Social History Tobacco Use Types Packs/Day Years [...] PM EDT Office Visit [facility] [place] [facility] 112 [facility] 110 [place] [address] Jacquie Townesnd PA [address] [facility] 110 [place] [address] documented as of this encounter Visit Diagnoses Not on filedocumented in this encounter Additional Health Concerns Assessment Noted Time PHQ-9 Depression Total Score: 0 01/16/20 24 1:00 PM EDT documented as of this encounter Care Teams Compliance Quality Performance Analyst Relationship Specialty Start Date End Date Carrol Sethi MD [address] [facility] [address] [place] [address] PCP - General Family Medicine 01/18/23 Jacquie Townsend PA [address] [facility] 110 [place] [address] PCP - ACO Reach 10/19/24 Melanie Gallegos LPN [address] [facility] [address] [place] [address] 05/03/25 05/07/25 documented as of this encounter
--- OUTSIDE RECORDS SUMMARY | 2025-05-18 04:06 | XMS_ITS | Encounter Summary ---
Author Organization [facility] Address [address] [facility] [place] [address] Care Team Providers Care Flower Machine Operator Name Role Phone Carrol Sethi MD Primary Care Provider [phone] Jacquie Townsend Unavailable [phone] Melanie Gallegos LPN Unavailable Encounter Details Date Type Department Care Team (Late Contact Info) Description 04/24/2025 Abstract [facility] [address] [place] [id number] Solitario Simmons, DPM FACFAS [address] [facility] [place] [address] Social History Tobacco Use Types [...] 3:00 PM EDT Office Visit [facility] [place] [facility] [address] [facility] [address] [place] [address] Jacquie Townsend PA [address] [facility] 110 [place] [address] documented as of this encounter Visit Diagnoses Not on filedocumented in this encounter Additional Health Concerns Assessment Noted Time PHQ-9 Depression Total Score: 0 01/17/20 25 2:00 PM EDT documented as of this encounter Care Teams Flower Machine Operator Relationship Specialty Start Date End Date Carrol Sethi MD [address] [facility] 110 [place] [address] PCP - General Family Medicine 01/18/23 Jacquie Townsend PA [address] [facility] 110 [place] [address] PCP - ACO Reach 10/19/24 Melanie Gallegos LPN [address] [facility] 110 [place] [address] 05/03/25 05/07/25 documented as of this encounter
--- OUTSIDE RECORDS SUMMARY | 2025-05-18 04:06 | XMS_ITS | Encounter Summary ---
Author Organization [facility] Address [address] [place] [address] Care Team Providers Care Director Environmental Name Role Phone Carrol Sethi MD Primary Care Provider [phone] Jacquie Townsend PA Unavailable [phone] Melanie Gallegos LPN Unavailable Encounter Details Date Type Department Care Team (Late Contact Info) Description 01/17/2025 Abstract [facility] [place] 112 [facility] 110 [place] [address] Carrol Sethi MD [address] [facility] 110 [place] [address] Social History Tobacco Use Types Packs/Day Years [...] PM EDT Office Visit [facility] [place] [facility] [address] [facility] 110 [place] [address] Jacquie Townsend PA [address] [facility] 110 [place] [address] documented as of this encounter Visit Diagnoses Not on filedocumented in this encounter Additional Health Concerns Assessment Noted Time PHQ-9 Depression Total Score: 0 01/17/20 25 2:00 PM EDT documented as of this encounter Care Teams Director Environmental Relationship Specialty Start Date End Date Carrol Sethi MD [address] [facility] 110 [place] [address] PCP - General Family Medicine 01/18/23 Jacquie Townsend PA [address] [facility] 110 [place] [address] PCP - ACO Reach 10/19/24 Melanie Gallegos LPN [address] [facility] 110 [place] [address] 05/03/25 05/07/25 documented as of this encounter
--- OUTSIDE RECORDS SUMMARY | 2025-05-18 04:06 | XMS_ITS | Encounter Summary ---
Author Organization [facility] Address [address] [place] [address] Care Team Providers Care Speech Language Pathologist Prn Name Role Phone Carrol Sethi MD Primary Care Provider [phone] Jacquie Townsend PA Unavailable [phone] Melanie Gallegos LPN Unavailable Encounter Details Date Type Department Care Team (Late Contact Info) Description 01/09/2025 Abstract [facility] [place] [address] [facility] 110 [place] [address] Carrol Sethi MD [address] [facility] 110 [place] [address] Social History Tobacco Use Types Packs/Day Years [...] [place] [facility] [address] [facility] 110 [place] [address] Jacquie Townsend PA [address] [facility] 110 [place] [address] documented as of this encounter Visit Diagnoses Not on filedocumented in this encounter Additional Health Concerns Assessment Noted Time PHQ-9 Depression Total Score: 0 01/16/20 24 1:00 PM EDT documented as of this encounter Care Teams Speech Language Pathologist Prn Relationship Specialty Start Date End Date Carrol Sethi MD [address] [facility] 110 [place] [address] PCP - General Family Medicine 01/18/23 Jacquie Townsend PA [address] [facility] 110 [place] [address] PCP - ACO Reach 10/19/24 Melanie Gallegos LPN [address] [facility] 110 [place] [address] 05/03/25 05/07/25 documented as of this encounter
--- OUTSIDE RECORDS SUMMARY | 2025-05-18 04:06 | XMS_ITS | Encounter Summary ---
Author Organization [facility] Address [address] [place] [address] Care Team Providers Care Oncology Admin Name Role Phone Carrol Sethi MD Primary Care Provider [phone] Jcaquie Townsend PA Unavailable [phone] Melanie Gallegos LPN Unavailable Encounter Details Date Type Department Care Team (Late Contact Info) Description 01/21/2025 Abstract [facility] [place] 112 [facility] 110 [place] [address] Carrol Sethi MD [address] [facility] 110 [place] [address] Social History Tobacco Use Types Packs/Day Years [...] [place] [facility] [address] [facility] 110 [place] [address] Jacquie Townsend PA [address] [facility] 110 [place] [address] documented as of this encounter Visit Diagnoses Not on filedocumented in this encounter Additional Health Concerns Assessment Noted Time PHQ-9 Depression Total Score: 0 01/17/20 25 2:00 PM EDT documented as of this encounter Care Teams Oncology Admin Relationship Specialty Start Date End Date Carrol Sethi MD [address] [facility] 110 [place] [address] PCP - General Family Medicine 01/18/23 Jacquie Townsend PA [address] [facility] 110 [place] [address] PCP - ACO Reach 10/19/24 Melanie Gallegos LPN [address] [facility] 110 [place] [address] 05/03/25 05/07/25 documented as of this encounter
--- OUTSIDE RECORDS SUMMARY | 2025-05-18 04:07 | XMS_ITS | Encounter Summary ---
Author Organization [facility] Address [address] [place] [address] Care Team Providers Care Supervisor Of Guidance And Testing Name Role Phone Carrol Sethi MD Primary Care Provider [phone] Jacquie Townsend PA Unavailable [phone] Melanie Gallegos LPN Unavailable Encounter Details Date Type Department Care Team (Late Contact Info) Description 10/11/2023 Abstract [facility] [place] [address] [facility] 110 [place] [address] Carrol Sethi MD [address] [facility] 110 [place] [address] Social History Tobacco Use Types Packs/Day Years [...] Tsangnce [address] [facility] [address] [place] [address] Jacquie Townsend PA [address] [facility] 110 [place] [address] documented as of this encounter Visit Diagnoses Not on filedocumented in this encounter Care Teams Supervisor Of Guidance And Testing Relationship Specialty Start Date End Date Carrol Sethi MD [address] [facility] 110 [place] [address] PCP - General Family Medicine 01/18/23 Jacquie Townsend PA [address] [facility] 110 [place] [address] PCP - ACO Reach 10/19/24 Melanie Gallegos LPN [address] [facility] 110 [place] [address] 05/03/25 05/07/25 documented as of this encounter
--- OUTSIDE RECORDS SUMMARY | 2025-05-18 04:07 | XMS_ITS | Encounter Summary ---
Author Organization [facility] Address [address] [place] [address] Care Team Providers Care X Ray Technologist Name Role Phone Carrol Sethi MD Primary Care Provider [phone] Jacquie Townsend PA Unavailable [phone] Melanie Gallegos LPN Unavailable Encounter Details Date Type Department Care Team (Late Contact Info) Description 05/05/2023 Abstract [facility] [place] [address] [facility] 110 [place] [address] Carrol Sethi MD [address] [facility] 110 [place] [address] Social History Tobacco Use Types Packs/Day Years [...] Tsangnce [address] [facility] [address] [place] [address] Jacquie Townsend PA [address] [facility] 110 [place] [address] documented as of this encounter Visit Diagnoses Not on filedocumented in this encounter Care Teams X Ray Technologist Relationship Specialty Start Date End Date Carrol Sethi MD [address] [facility] 110 [place] [address] PCP - General Family Medicine 01/18/23 Jacquie Townsend PA [address] [facility] 110 [place] [address] PCP - ACO Reach 10/19/24 Melanie Gallegos LPN [address] [facility] 110 [place] [address] 05/03/25 05/07/25 documented as of this encounter
--- OUTSIDE RECORDS SUMMARY | 2025-05-18 04:07 | XMS_ITS | Encounter Summary ---
Author Organization [facility] Address [address] [place] [address] Care Team Providers Care Veterinary Epidemiologist Name Role Phone Carrol Sethi MD Primary Care Provider [phone] Jacquie Townsend Unavailable [phone] Melanie Gallegos LPN Unavailable Encounter Details [...] Date Type Department Care Team ([facility] Contact Info) Description 05/22/2025 3:00 PM EDT Office Visit [facility] [place] [address] [facility] [address] [place] [address] Jacquie Townsend PA [address] [facility] 110 [place] [address] documented as of this encounter Visit Diagnoses Not on filedocumented in this encounter Additional Health Concerns Assessment Noted Time PHQ-9 Depression Total Score: 0 01/17/20 2:00 PM EDT documented as of this encounter Care Teams Veterinary Epidemiologist Relationship Specialty Start Date End Date Carrol Sethi MD [address] [facility] 110 [place] [address] PCP - General Family Medicine 01/18/23 Jacquie Townsend PA [address] [facility] 110 [place] [address] PCP - ACO Reach 10/19/24 Melanie Gallegos LPN [address] [facility] 110 [place] [address] 05/03/25 05/07/25 documented as of this encounter
--- OUTSIDE RECORDS SUMMARY | 2025-05-18 04:07 | XMS_ITS | Encounter Summary ---
Author Organization [facility] Address [address] [place] [address] Care Team Providers Care Cat Dog Or Other Pet Groomer Name Role Phone Carrol Sethi MD Primary Care Provider [phone] Jacquie Townsend PA Unavailable [phone] Melanie Gallegos LPN Unavailable Encounter Details Date Type Department Care Team (Late Contact Info) Description 01/17/2024 Abstract [facility] [place] 112 [facility] 110 [place] [address] Carrol Sethi MD [address] [facility] 110 [place] [address] Social History Tobacco Use Types Packs/Day Years [...] PM EDT Office Visit [facility] [place] [address] [facility] 110 [place] [address] Jacquie Townsend PA [address] [facility] 110 [place] [address] documented as of this encounter Visit Diagnoses Not on filedocumented in this encounter Additional Health Concerns Assessment Noted Time PHQ-9 Depression Total Score: 0 01/16/20 24 1:00 PM EDT documented as of this encounter Care Teams Cat Dog Or Other Pet Groomer Relationship Specialty Start Date End Date Carrol Sethi MD [address] [facility] 110 [place] [address] PCP - General Family Medicine 01/18/23 Jacquie Townsend PA [address] [facility] 110 [place] [address] PCP - ACO Reach 10/19/24 Melanie Gallegos LPN [address] [facility] 110 [place] [address] 05/03/25 05/07/25 documented as of this encounter
--- OUTSIDE RECORDS SUMMARY | 2025-05-18 04:07 | XMS_ITS | Encounter Summary ---
Author Organization [facility] Address [address] [place] [address] Care Team Providers Care Certified Medical Technician Name Role Phone Carrol Sethi MD Primary Care Provider [phone] Jacquie Townsend Unavailable [phone] Melanie Gallegos LPN Unavailable Encounter Details Date Type Department Care Team (Late st Contact Info) Description 05/06/2025 Patient Outreach [facility] [address] [place] [id number] Melanie Gallegos LPN [address] [facility] [address] [place] [address] Social History Tobacco Use Types Packs/Day Years [...] like help with patient assistance for insulin. [employer] goes over application and fills out with pt while in office. I let pt know that if he changes his mind and would like CCM services he may call me and he can get enrolled. I give pt my name and number to reach me. Teresa [employer]ordisk PAP application completed with pt and faxed to [employer] documented in this encounter Plan of Treatment Upcoming Encounters Date Type Department Care Team (Late st Contact Info) Description 05/22/2025 3:00 PM EDT Office Visit [facility] [place] [address] [facility] 110 [place] [address] Jacquie Townsend PA [address] [facility] [address] [place] [address] documented as of this encounter Visit Diagnoses Diagnosis Type 2 diabetes mellitus with other specified complication, with long-term current use of insulin (HCC)- Primary Other chronic pain documented in this encounter Additional Health Concerns Assessment Noted Time PHQ-9 Depression Total Score: 0 01/17/20 2:00 PM EDT documented as of this encounter Care Teams Certified Medical Technician Relationship Specialty Start Date End Date Carrol Sethi MD [address] [facility] [address] [place] [address] PCP - General Family Medicine 01/18/23 Jacquie Townsend PA [address] [facility] [address] [place] [address] PCP - ACO Reach 10/19/24 Melanie Gallegos LPN 112 [facility] 110 [place] [address] 05/03/25 05/07/25 documented as of this encounter
--- OUTSIDE RECORDS SUMMARY | 2025-05-18 04:07 | XMS_ITS | Encounter Summary ---
Author Organization [facility] Address [address] [place] [address] Care Team Providers Care Heating And Refrigeration Inspector Name Role Phone Carrol Sethi MD Primary Care Provider [phone] Jacquie Townsend PA Unavailable [phone] Melanie Gallegos LPN Unavailable Encounter Details Date Type Department Care Team (Late Contact Info) Description 05/06/2025 Bamboo flowsheet [facility] [place] [address] [facility] 110 [place] [address] Jacquie Townsend PA [address] [place] [address] [place] [address] Social History Tobacco Use Types Packs/Day Years [...] [facility] [address] [place] [address] [place] [address] Jacquie Townsend PA [address] [facility] 110 [place] [address] documented as of this encounter Visit Diagnoses Not on filedocumented in this encounter Additional Health Concerns Assessment Noted Time PHQ-9 Depression Total Score: 0 01/17/20 25 2:00 PM EDT documented as of this encounter Care Teams Heating And Refrigeration Inspector Relationship Specialty Start Date End Date Carrol Sethi MD [address] [facility] 110 [place] [address] PCP - General Family Medicine 01/18/23 Jacquie Townsend PA [address] [facility] [address] [place] [address] PCP - ACO Reach 10/19/24 Melanie Gallegos LPN [address] [facility] 110 [place] [address] 05/03/25 05/07/25 documented as of this encounter
--- OUTSIDE RECORDS SUMMARY | 2025-05-18 04:07 | XMS_ITS | Encounter Summary ---
Author Organization [employer] Address [id number] [address] [place] [address] Care Team Providers Care Yardage Control Operator Forming Name Role Phone Jacquie Townsend Primary Care Provider [phone] Reason for Visit * Reason Onset Date Comments Referral to Neurology 06/18/2021 Encounter Details Date Type Department Care Team (Late st Contact Info) Description 06/18/2021 Telephone [facility] [address] [place] [address] Elizabeth Trejo Referral to Neurology [...] documented as of this encounter Care Teams Yardage Control Operator Forming Relationship Specialty Start Date End Date Jacquie Townsend PA PCP - General Physician Mail Sorter 11/01/22 documented as of this encounter
--- OUTSIDE RECORDS SUMMARY | 2025-05-18 04:07 | XMS_ITS | Encounter Summary ---
Author Organization [facility] Address [address] [place] [address] Care Team Providers Care Chief Minister Name Role Phone Carrol Sethi MD Primary Care Provider [phone] Jacquie Townsend PA Unavailable [phone] Melanie Gallegos LPN Unavailable Encounter Details Date Type Department Care Team (Late Contact Info) Description 04/25/2025 Abstract [facility] [place] [address] [facility] 110 [place] [address] Carrol Sethi MD [address] [facility] 110 [place] [address] Social History Tobacco Use Types Packs/Day Years [...] PM EDT Office Visit [facility] [place] [facility] [address] [facility] 110 [place] [address] Jacquie Townsend PA [address] [facility] 110 [place] [address] documented as of this encounter Visit Diagnoses Not on filedocumented in this encounter Additional Health Concerns Assessment Noted Time PHQ-9 Depression Total Score: 0 01/17/20 25 2:00 PM EDT documented as of this encounter Care Teams Chief Minister Relationship Specialty Start Date End Date Carrol Sethi MD [address] [facility] [address] [place] [address] PCP - General Family Medicine 01/18/23 Jacquie Townsend PA [address] [facility] [address] [place] [address] PCP - ACO Reach 10/19/24 Melanie Gallegos LPN [address] [facility] [address] [place] [address] 05/03/25 05/07/25 documented as of this encounter
--- OUTSIDE RECORDS SUMMARY | 2025-05-18 04:07 | XMS_ITS | Encounter Summary ---
Author Organization [facility] Address [address] [place] [address] Care Team Providers Care Press Breaker Name Role Phone Carrol Sethi MD Primary Care Provider [phone] Jacquie Townsend Unavailable Melanie Gallegos LPN Unavailable Reason for Visit * Reason Comments Med Refill Encounter Details Date Type Department Care Team (Late st Contact Info) Description 12/31/2023 Refill [facility] [place] [facility] [address] [facility] 110 [place] [address] Jacquie Townsend PA [address] [facility] 110 [place] [address] Depression, unspecified depression type Social History Tobacco [...] Visit [facility] [place] [address] [facility] 110 [place] [address] Jacquie Townsend PA [address] [facility] 110 [place] [address] documented as of this encounter Visit Diagnoses Diagnosis Depression, unspecified depression type documented in this encounter Care Teams Press Breaker Relationship Specialty Start Date End Date Carrol Sethi MD [address] [facility] 110 [place] [address] PCP - General Family Medicine 01/18/23 Jacquie Townsend PA [address] [facility] 110 [place] [address] PCP - ACO Reach 10/19/24 Melanie Gallegos LPN [address] [facility] 110 [place] [address] 05/03/25 05/07/25 documented as of this encounter
--- OUTSIDE RECORDS SUMMARY | 2025-05-18 04:07 | XMS_ITS | Clinical Summary ---
Author Organization [facility] Address [address] [facility] [place] [address] Phone Care Team Providers Care Museum Technician Name Role Phone Unavailable Primary Care Provider [...]
--- OUTSIDE RECORDS SUMMARY | 2025-05-18 04:07 | XMS_ITS | Encounter Summary ---
Author Organization [employer] Address [id number] [address] [place] [address] Care Team Providers Care Bush And Vine Farmer Fruit Crops Name Role Phone Jacquie Townsend Primary Care Provider [phone] Encounter Details Date Type Department Care Team [...] on filedocumented in this encounter Care Teams Bush And Vine Farmer Fruit Crops Relationship Specialty Start Date End Date Jacquie Townsend PA PCP - General Physician Photo Journalist 11/01/22 documented as of this encounter
--- OUTSIDE RECORDS SUMMARY | 2025-05-18 04:07 | XMS_ITS | Encounter Summary ---
Author Organization [facility] Address [address] [place] [address] Care Team Providers Care Field Logistics Coordinator Name Role Phone Carrol Sethi MD Primary Care Provider [phone] Jacquie Townsend Unavailable [phone] Melanie Gallegos LPN Unavailable Reason for Visit * Reason Comments Med Refill Encounter Details Date Type Department Care Team (Late st Contact Info) Description 12/31/2023 Refill [facility] [place] [facility] [address] [facility] 110 [place] [address] Carrol Sethi MD [address] [facility] 110 [place] [address] Depression, unspecified depression type Social History Tobacco [...] Visit [facility] [place] [address] [facility] 110 [place] [address] Jacquie Townsend PA [address] [facility] 110 [place] [address] documented as of this encounter Visit Diagnoses Diagnosis Depression, unspecified depression type documented in this encounter Care Teams Field Logistics Coordinator Relationship Specialty Start Date End Date Carrol Sethi MD [address] [facility] 110 [place] [address] PCP - General Family Medicine 01/18/23 Jacquie Townsend PA [address] [facility] 110 [place] [address] PCP - ACO Reach 10/19/24 Melanie Gallegos LPN [address] [facility] 110 [place] [address] 05/03/25 05/07/25 documented as of this encounter
--- OUTSIDE RECORDS SUMMARY | 2025-05-18 04:07 | XMS_ITS | Clinical Summary ---
Author Organization [facility] Address [address] [place] [address] Care Team Providers Care Transit Proof Machine Operator Name Role Phone Carrol Sethi MD Primary Care Provider [phone] Jacquie Townsend Unavailable [phone] Allergies Active Allergy Reactions Criticality Noted [...] 30 tablet 2 05/06/20 Active Continuous Glucose Nutrition Therapist (FreeStyle [place] 2 [place]) deviceIndication s:Type 2 diabetes mellitus with other specified complication, with long-term current use of insulin ([facility]) 1 each by Other route Daily Use as directed 1 each 02/20/20 24 025 Discontinued Continuous Glucose Sensor (FreeStyle [place] 2 Sensor) miscIndications: Type 2 diabetes mellitus with other specified complication, with long-term current use of insulin ([facility]) Inject 1 each under the [...] complication, with long-term current use of insulin ([facility]) 1 each every 14 (fourteen) days 6 each 3 04/23/20 25 025 Discontinued Continuous Glucose Nutrition Therapist (Dexcom G7 Nutrition Therapist) deviceIndication s:Type 2 diabetes mellitus with other specified complication, with long-term current use of insulin ([facility]) 1 each Daily 1 each 04/24/20 25 025 Discontinued Continuous Glucose Sensor (Dexcom G7 Sensor) miscIndications: Type 2 diabetes mellitus with other specified complication, with long-term current use of insulin ([facility]) 1 each Every 10 (ten) [...] Outreach [facility] [address] [place] [address] Melanie Gallegos LPN 05/06/2025 1:30 PM EDT Office Visit [facility] [place] [facility] [address] [place] [address] [place] [address] Jacquie Townsend, PA Type 2 diabetes mellitus with other specified complication, with long-term current use of insulin (HCC) (Primary Dx); Complex regional pain syndrome type 1, affecting unspecified site; Primary hypertension ; Primary insomnia; Moderate episode of recurrent major depressive disorder (HCC) 05/06/2025 Patient Outreach [facility] [address] [place] [address] Melanie Gallegos LPN 05/06/2025 Bamboo flowsheet [facility] [place] [facility] [address] [facility] 110 [place] [address] Jacquie Townsend PA 05/06/2025 Travel 04/25/2025 Telephone [facility] [place] [facility] [address] [facility] [address] [place] [address] Carrol Sethi MD 04/25/2025 Abstract [facility] [place] [facility] [address] [facility] [address] [place] [address] Carrol Sethi MD 04/25/2025 Abstract [facility] [place] [facility] [address] [facility] [address] [place] [address] Carrol Sethi MD 04/24/2025 Abstract [facility] [address] [place] [address] Dolce, Solitario R, DPM FACFAS 04/24/2025 Abstract [facility] [address] [place] [address] Dolce, Solitario R, DPM FACFAS 04/23/2025 Telephone [facility] [place] [facility] [address] [facility] [address] [place] [address] Carrol Sethi MD Med Refill 04/23/2025 Orders Only [facility] [place] [facility] [address] [facility] [address] [place] [address] Jacquie Townsend PA Type 2 diabetes mellitus with other specified complication, with long-term current use of insulin (HCC) 04/15/2025 Telephone [facility] [place] [facility] [address] [facility] [address] [place] [address] Carrol Sethi MD 04/15/2025 Abstract [facility] [place] [facility] [address] [facility] 110 [place] [address] Carrol Sethi MD 04/12/2025 Abstract [facility] [address] [place] [address] Solitario Simmons, DPM FACFAS 04/09/2025 4:30 PM EDT Office Visit [facility] [place] [facility] [address] [facility] 110 [place] [address] Jacquie Townsend, PA Type 2 diabetes mellitus [...] leg 04/09/2025 Travel 04/09/2025 Abstract [facility] [place] [facility] [address] [facility] [address] [place] [address] Carrol Sethi MD 04/04/2025 [facility] [address] [facility] 110 [place] [address] Carrol Sethi MD 04/04/2025 Abstract [facility] [place] [facility] [address] [facility] [address] [place] [address] Carrol Sethi MD 04/03/2025 Abstract [facility] [place] [facility] [address] [facility] [address] [place] [address] Carrol Sethi MD 04/01/2025 Telephone [facility] [place] [facility] [address] [facility] [address] [place] [address] Jacquie Townsend PA 03/25/2025 Abstract [facility] [place] [facility] [address] [facility] [address] [place] [address] Carrol Sethi MD 03/21/2025 Abstract [facility] [place] [place] [address] Carrol Sethi MD 03/21/2025 Abstract [facility] [place] [address] Carrol Sethi MD 02/19/2025 3:00 PM EDT Office Visit [facility] [place] [address] [place] [address] Jacquie Townsend PA Primary hypertension (Primary Dx); Bilateral lower extremity edema; Type 2 diabetes mellitus with other specified complication, with long-term current use of insulin (HCC); Impaired mobility and ADLs; Frequent falls; History of DVT (deep vein thrombosis); History of pulmonary embolism 02/19/2025 Bamboo flowsheet [facility] [place] [address] [place] [address] Jacquie Townsend PA 02/19/2025 Travel from Last 3 Months Immunizations Immunization Administration Dates Next Due ABRYSVO - Respiratory syncyt ial virus (RSV), vaccine, bivalent, protein subunit RSV prefusion F, diluent reconstituted, 0.5 mL, PF 01/03/2025 Hep B, adult 06/25/2020 Influenza, Recombinant, inje ctable, preservative free 01/03/2025 Influenza, injectable, quadrivalent 12/02/2021,1 Influenza, recombinant, quad rivalent, injectable, preservative free 05/10/2023,06/25/2020,07/02/2019 Novel [id number], preservative-free 07/10 Pneumococcal Conjugate PCV 20 05/10/2023 [...] Mendoza [facility] 112 [facility] 110 [place] [address] Jacquie Townsend PA 112 [facility] 110 [place] [address] Health Maintenance Due Date Last Done Comments [...] Information Site ID: QPT Name: [facility] Address: Rachael Van , [address] [place] [id number] Director: Mikey Lawson MD Jacquie [facility] [...] STL-IMP Negative Negative 02/23/2024 10:41 AM EDT [employer] (CLIA #:[id number]) Comment: NEGATIVE TEST RESULT. A negative Cologuard [...] (Antonella Rangel al, N Engl J Med 2014;370(14):5847-7766) The normal value (reference range) for this assay is negative. COLOGUARD RE-SCREENING RECOMMENDATION: Periodic colorectal cancer screening is an important part of preventive healthcare for asymptomatic individuals at average risk for colorectal cancer. Following a negative Cologuard result, the [place] [employer] Society and U.S. Multi-Society Task Force screening guidelines recommend a Cologuard re-screening interval of 3 years. References: [place] [employer] Guideline for Colorectal Cancer Screening: https://www.cancer.org/cancer/ogdia-grpivs-owfjlt/jcqroktej-pbsynzvba-tgbhubp/ac s-rec ommendations.html.; Nathan DK, Cheikh CR, Wilda LariosK, Colorectal Cancer Screening: Recommendations for Physicians and Patients from the U.S. Multi-Society Task Force on Colorectal Cancer Screening , Am J Gastroenterology 2017; 112:2025-7516. TEST DESCRIPTION: Composite algorithmic analysis of stool [...] (Antonella Rangel al, N Engl J Med 2014;370(14):8122-2021.) Cologuard may produce a false negative or false positive result (no colorectal cancer or precancerous polyp present at colonoscopy follow up). A negative Cologuard test result does not guarantee the absence of CRC or advanced adenoma (pre-cancer). The current Cologuard screening interval is every 3 years. ([place] Cancer Society and U.S. Multi-Society Task Force). Cologuard performance data in a 10,000 patient pivotal study using colonoscopy as the reference method can be accessed at the following location: www.X2IMPACT.com/results. Additional description of the Cologuard test process, warnings and precautions can be found at www.colCircuit of The Americasrd.[employer]. Stool specimen (specimen) 02/05/2024 1:12 PM EDT 02/08/2024 9:39 AM EDT Jac[facility]ie [facility] VIVIANA CARLISLE Final Result [employer] (CLIA #:[id number]) [address] [place] [address], [employer] (CLIA #:[id number]) [address] [place] [address] * Diabetic Retinopathy Screening - OU - Both Eyes (02/01/2024 3:12 PM EDT) RESULTS normal Anatomical Region Laterality Modality Head Other Carrol Sethi MD OPHTH PHOTOGRAPHY Final Result from Last 3 Months or Most Recently Relevant to Health Maintenance Insurance MEDICARE Advance Directives Documents on File Type Date Recorded Patient Alteration Tailor Expl anation Power of Glass Ribbon Machine Operator Assistant 04/10/2025 10:50 AM heal thcare power of trial attorney paperwork 2025-04-10 Care Teams Transit Proof Machine Operator Relationship Specialty Start Date End Date Carrol Sethi MD [address] [place] [address] [place] [address] PCP - General Family Medicine 01/18/23 Jacquie Townsend PA [address] [facility] 110 [place] [address] PCP - ACO Reach 10/19/24
--- OUTSIDE RECORDS SUMMARY | 2025-05-18 04:07 | XMS_ITS | Encounter Summary ---
Author Organization [facility] Address [address] [place] [address] Care Team Providers Care Field Artillery Crewmember Name Role Phone Carrol Sethi MD Primary Care Provider [phone] Jacquie Townsend PA Unavailable [phone] Melanie Gallegos LPN Unavailable Encounter Details Date Type Department Care Team (Late Contact Info) Description 04/25/2025 Abstract [facility] [place] [address] [facility] 110 [place] [address] Carrol Sethi MD [address] [facility] 110 [place] [address] Social History Tobacco Use Types Packs/Day Years [...] [facility] [place] [facility] [address] [facility] 110 [place] [address] Jacquie Townsend PA [address] [facility] 110 [place] [address] documented as of this encounter Visit Diagnoses Not on filedocumented in this encounter Additional Health Concerns Assessment Noted Time PHQ-9 Depression Total Score: 0 01/17/20 25 2:00 PM EDT documented as of this encounter Care Teams Field Artillery Crewmember Relationship Specialty Start Date End Date Carrol Sethi MD [address] [facility] [address] [place] [address] PCP - General Family Medicine 01/18/23 Jacquie Townsend PA [address] [facility] [address] [place] [address] PCP - ACO Reach 10/19/24 Melanie Gallegos LPN [address] [facility] [address] [place] [address] 05/03/25 05/07/25 documented as of this encounter
--- OUTSIDE RECORDS SUMMARY | 2025-05-18 04:07 | XMS_ITS | Encounter Summary ---
Author Organization [facility] Address [address] [place] [address] Care Team Providers Care Production Line Solderer Name Role Phone Carrol Sethi MD Primary Care Provider [phone] Jacquei Townsend Unavailable [phone] Encounter Details Date Type Department Care Team (Late st Contact Info) Description 05/14/2025 Patient Outreach [facility] [address] [facility] [place] [address] Melanie Gallegos LPN 112 [facility] 110 [place] [address] Social History Tobacco Use Types Packs/Day Years [...] Flowsheet Row Patient Outreach from 05/14/2025 in [facility] with Melanie Gallegos LPN Hospital Information ED, Hospital or Shelter Facility Discharge? ED Patient has been contacted within 2 days of being seen in the ED Yes Diagnosis Neck pain, Left anterior shoulder pain, Left buttock pain, Localized swelling of both lower extremities, Muscle pain Discharge Date 05/13/25 Discharged To: Home Setting Discharge Hospital [facility] Engagement Call Start Time 1451 Admission Date 05/12/25 Medications Discharge medications reviewed and reconciled from hospital? No [pt did not wish to go through medications. Unchanged other than percocet] Is the patient having any side effects they believe may be caused by any medication additions or changes? No Does the patient have all medications ordered at discharge? Yes [Leaving to pickle sorter Percocet] Is the patient taking all medications [...] pelvis, CT cervical spine, CT-brain, X-ray elboe, R-lnn-iiplyhay, labs Call End Time 1454 documented in this encounter Plan of Treatment Upcoming Encounters Date Type Department Care Team (Late st Contact Info) Description 05/22/2025 3:00 PM EDT [facility] [place] [facility] [address] [facility] [address] [place] [address] Jacquie Townsend PA [address] [place] [address] [place] [address] documented as of this encounter Visit Diagnoses [...] documented as of this encounter Care Teams Production Line Solderer Relationship Specialty Start Date End Date Carrol Sethi MD [address] [facility] 110 [place] [address] PCP - General Family Medicine 01/18/23 Jacquie Townsend PA 112 [facility] 110 [place] [address] PCP - ACO Reach 10/19/24 documented as of this encounter
--- OUTSIDE RECORDS SUMMARY | 2025-05-18 04:07 | XMS_ITS | Encounter Summary ---
Author Organization [facility] Address [address] [place] [address] Care Team Providers Care Bending Shed Worker Name Role Phone Carrol Sethi MD Primary Care Provider [phone] Jacquie Townsend Unavailable Melanie Gallegos LPN Unavailable Reason for Visit * Reason Comments Med Refill Encounter Details Date Type Department Care Team (Late st Contact Info) Description 04/04/2023 Refill [facility] [place] [facility] [address] [place] [address] [place] [address] Jacquie Townsend PA [address] [facility] 110 [place] [address] Bilateral lower extremity edema (Primary Dx); Type [...] PM EDT Office Visit [facility] [place] [facility] [address] [facility] [address] [place] [address] Jacquie Townsend PA [address] [facility] [address] [place] [address] documented as of this encounter Visit Diagnoses Diagnosis Bilateral lower extremity edema- Primary Type 2 diabetes mellitus without complication, without long-term current use of insulin (HCC) documented in this encounter Care Teams Bending Shed Worker Relationship Specialty Start Date End Date Carrol Sethi MD [address] [facility] [address] [place] [address] PCP - General Family Medicine 01/18/23 Jacquie Townsend PA [address] [facility] [address] [place] [address] PCP - ACO Reach 10/19/24 Melanie Gallegos LPN [address] [facility] [address] [place] [address] 05/03/25 05/07/25 documented as of this encounter
--- OUTSIDE RECORDS SUMMARY | 2025-05-18 04:07 | XMS_ITS | Encounter Summary ---
Author Organization [facility] Address [address] [place] [address] Care Team Providers Care Overlock Hemmer Name Role Phone Carrol Sethi MD Primary Care Provider [phone] Jacquie Townsend PA Unavailable [phone] Melanie Gallegos LPN Unavailable Encounter Details Date Type Department Care Team (Late Contact Info) Description 02/16/2024 Abstract [facility] [place] [address] [facility] 110 [place] [address] Carrol Sethi MD [address] [facility] 110 [place] [address] Social History Tobacco Use Types Packs/Day Years [...] EDT Office Visit [facility] [place] [facility] [address] [facility] 110 [place] [id number] Jacquie Townsend PA [address] [facility] 110 [place] [address] documented as of this encounter Visit Diagnoses Not on filedocumented in this encounter Additional Health Concerns Assessment Noted Time PHQ-9 Depression Total Score: 0 01/16/20 24 1:00 PM EDT documented as of this encounter Care Teams Overlock Hemmer Relationship Specialty Start Date End Date Carrol Sethi MD [address] [facility] [address] [place] [address] PCP - General Family Medicine 01/18/23 Jacquie Townsend PA [address] [facility] 110 [place] [address] PCP - ACO Reach 10/19/24 Melanie Gallegos LPN [address] [facility] [address] [place] [address] 05/03/25 05/07/25 documented as of this encounter
--- OUTSIDE RECORDS SUMMARY | 2025-05-18 04:07 | XMS_ITS | Encounter Summary ---
Author Organization [facility] Address [address] [place] [address] Care Team Providers Care Assistant Pressman Name Role Phone Carrol Sethi MD Primary Care Provider [phone] Jacquie Townsend PA Unavailable [phone] Melanie Gallegos LPN Unavailable Encounter Details Date Type Department Care Team (Late Contact Info) Description 01/17/2024 Abstract [facility] [place] [address] [facility] 110 [place] [id number] Carrol Sethi MD [address] [facility] 110 [place] [address] Social History Tobacco Use Types Packs/Day Years [...] PM EDT Office Visit [facility] [place] [facility] [address] [facility] 110 [place] [phone] Jacquie Townsend PA [address] [facility] [[email or web address] 110 [place] [address] documented as of this encounter Visit Diagnoses Not on filedocumented in this encounter Additional Health Concerns Assessment Noted Time PHQ-9 Depression Total Score: 0 01/16/20 24 1:00 PM EDT documented as of this encounter Care Teams Assistant Pressman Relationship Specialty Start Date End Date Carrol Sethi MD [address] [facility] [[email or web address] [address] [place] [address] PCP - General Family Medicine 01/18/23 Jacquie Townsend PA [address] [facility] [[email or web address] [address] [place] [address] PCP - ACO Reach 10/19/24 Melanie Gallegos LPN [address] [facility] [[email or web address] [address] [place] [address] 05/03/25 05/07/25 documented as of this encounter
--- OUTSIDE RECORDS SUMMARY | 2025-05-18 04:07 | XMS_ITS | Encounter Summary ---
Author Organization [facility] Address [address] [place] [address] Care Team Providers Care Department Administrator Name Role Phone Carrol Sethi MD Primary Care Provider [phone] Jacquie Townsend PA Unavailable [phone] Melanie Gallegos LPN Unavailable Encounter Details Date Type Department Care Team (Late Contact Info) Description 10/05/2023 Abstract [facility] [place] [address] [facility] 110 [place] [address] Carrol Sethi MD [address] [facility] 110 [place] [address] Social History Tobacco Use Types Packs/Day Years [...] [place] [address] [facility] [address] [place] [address] Jacquie Townsend PA [address] [facility] 110 [place] [address] documented as of this encounter Visit Diagnoses Not on filedocumented in this encounter Care Teams Department Administrator Relationship Specialty Start Date End Date Carrol Sethi MD [address] [facility] 110 [place] [address] PCP - General Family Medicine 01/18/23 Jacquie Townsend PA [address] [facility] 110 [place] [address] PCP - ACO Reach 10/19/24 Melanie Gallegos LPN [address] [facility] 110 [place] [address] 05/03/25 05/07/25 documented as of this encounter
--- NOTE | 2025-05-18 04:10 | ED.EXTPRO1 ---
HPI - Extremity Problem General Chief complaint: Skin/Abscess/Foreign Body Stated complaint: WEAKNESS Time Seen by Provider: 05/18/25 03:58 History of Present Illness HPI Narrative: IDDM with past history of DVT and PE. Swelling of his lower ext for the past week. Seen yesterday here in the ER and admission recommended for bilat lower ext. cellulitis. Now returns via Squad complaining of pain of his legs and not feeling well. No fever, chills or nausea. History of diabetes neuropathy but has pain of his legs Related Data Home Medications ?Medication ?Instructions ?Recorded ?Confirmed apixaban 5 mg tablet (Eliquis) 5 mg PO BID 05/17/25 05/18/25 furosemide 20 mg tablet 20 mg PO QAM 05/17/25 05/18/25 gabapentin 100 mg capsule 100 mg PO TID 05/17/25 05/18/25 gabapentin 800 mg tablet 800 mg PO TID 05/17/25 05/18/25 insulin degludec 200 unit/mL (3 10 unit subcut DAILY 05/17/25 05/18/25 mL) subcutaneous pen (Tresiba FlexTouch U-200 insulin) lamotrigine 100 mg tablet 100 mg PO .QD 05/17/25 05/18/25 metoprolol tartrate 50 mg tablet 50 mg PO .QD 05/17/25 05/18/25 oxcarbazepine 150 mg tablet 150 mg PO BID 05/17/25 05/18/25 oxycodone-acetaminophen 5 mg-325 1 tab PO Q6H 05/17/25 05/18/25 mg tablet quetiapine 25 mg tablet 25 mg PO .QHS 05/17/25 05/18/25 sertraline 100 mg tablet 100 mg PO .QD 05/17/25 05/18/25 dulaglutide 0.75 mg/0.5 mL 4.5 mg subcut .weekly 05/18/25 05/18/25 subcutaneous pen injector (Trulicity) quetiapine 100 mg tablet 100 mg PO DAILY 05/18/25 05/18/25 Previous Rx's ?Medication ?Instructions ?Recorded cephalexin 500 mg tablet 500 mg PO QID 7 days #28 tabs 05/17/25 sulfamethoxazole 800 1 tab PO BID 7 days #14 tabs 05/17/25 mg-trimethoprim 160 mg tablet (Bactrim DS) Allergies Allergy/AdvReac Type Severity Reaction Status Date / Time No Known Drug Allergies Allergy Verified 05/18/25 04:18 Review of Systems ROS Status of ROS 10 or more systems reviewed and unremarkable except as noted in history and below [facility] Medical History (Updated 05/18/25 @ 06:03 by Luis Page MD) History of pulmonary embolism ?Z86.711 - Personal history of pulmonary embolism (ICD-10) History of DVT (deep vein thrombosis) ?Z86.718 - Personal history of other venous thrombosis and embolism (ICD-10) Social History Little interest or pleasure in doing things: not at all Feeling down, depressed, or hopeless: not at all Exam Constitutional Vital Signs, click to edit/add: Last Vital Signs Temp 97.4 F L 05/18/25 04:17 Pulse 74 05/18/25 04:17 Resp 20 05/18/25 04:17 BP 174/88 H 05/18/25 04:17 Pulse Ox 98 05/18/25 04:17 O2 Del Method Room Air 05/18/25 04:17 Common normals: no apparent distress, average body habitus, oriented x3, no limitations, healthy appearing, alert and well nourished [facility] Common normals: normocephalic and head/scalp atraumatic Eye Common normals: PERRL, EOMs intact bilaterally and conjunctivae normal Respiratory Common normals: normal respiratory effort, no retractions, no use of accessory muscles and clear to auscultation bilaterally Cardio Common normals: regular rate, regular rhythm, S1 normal heart sound and S2 normal heart sound GI Common normals: Normal to inspection, nondistended, normoactive bowel sounds present and soft to palpation Extremity Other: 1-2+ edema and erythema bilat lower ext. L>R Neuro Common normals: oriented x3, CN's II-XII intact bilaterally, moves all extremities and no focal motor deficits Psych Appearance: grossly normal Course Vital Signs Vital signs: Vital Signs Temperature 97.4 F L 05/18/25 04:17 Pulse Rate 74 05/18/25 04:17 Respiratory Rate 20 05/18/25 04:17 Blood Pressure 174/88 H 05/18/25 04:17 Pulse Oximetry 98 05/18/25 04:17 Oxygen Delivery Method Room Air 05/18/25 04:17 Temperature 97.4 F L 05/18/25 04:17 Pulse Rate 74 05/18/25 04:17 Respiratory Rate 20 05/18/25 04:17 Blood Pressure 174/88 H 05/18/25 04:17 Pulse Oximetry 98 05/18/25 04:17 Oxygen Delivery Method Room Air 05/18/25 04:17 MDM - Extremity (Nontraumatic) MDM Narrative Medical decision making narrative: IDDM with bilat lower ext edema and cellulitis. No fever or systemic symptoms. Seen yesterday and the plan was to admit him but he signed out AMA. He now returns complaining of increased pain. Patient was treated with Rocephin yesterday . Discussed with hospitalist Dr Solis and patient accepted for admission Lab Data Labs: Lab Results 05/18/25 Range/Units 04:30 WBC 7.7 (4.0-11.0) 10^3/uL RBC 4.76 (4.70-6.10) 10^6/uL Hgb 14.5 (14.0-18.0) g/dL Hct 42.5 (42.0-54.0) % MCV 89.3 (80.0-94.0) fL MCH 30.5 (25.9-34.0) pg MCHC 34.1 (29.9-35.2) g/dL RDW 12.8 (11.0-15.0) % Plt Count 220 (150-450) 10^3/uL MPV 9.2 L (9.5-13.5) fL Neut % (Auto) 61.5 (43.0-75.0) % Lymph % (Auto) 26.1 (20.5-60.0) % [place] % (Auto) 8.6 (1.7-12.0) % Eos % (Auto) 2.5 (0.9-7.0) % Baso % (Auto) 1.0 (0.2-2.0) % Neut # (Auto) 4.7 (1.4-6.5) 10^3/uL Lymph # (Auto) 2.0 (1.2-3.8) 10^3/uL [place] # (Auto) 0.7 (0.3-0.8) 10^3/uL Eos # (Auto) 0.2 (0.0-0.7) 10^3/uL Baso # (Auto) 0.1 (0.0-0.1) 10^3/uL Abs Immat Gran (auto) 0.02 (0.00-0.03) 10^3/uL Imm/Tot Granulo (auto) 0.3 (0.0-0.5) % Sodium 139 (136-145) mmol/L Potassium 4.2 (3.5-5.1) mmol/L Chloride 104 (98-107) mmol/L Carbon Dioxide 28.4 (21.0-32.0) mmol/L Anion Gap 10.8 BUN 13.0 (7.0-18.0) mg/dL Creatinine 0.92 (0.70-1.30) mg/dL Est GFR ( Amer) >60 (>=60 mL/min/1.73m^2) Est GFR (Non-Af Amer) >60 (>=60 mL/min/1.73m^2) BUN/Creatinine Ratio 14.1 Glucose 145 H (74-106) mg/dL Lactate 0.7 (0.4-2.0) mmol/L Calcium 9.1 (8.5-10.1) mg/dL Total Bilirubin 0.6 (0.2-1.0) mg/dL AST 20 (15-37) U/L ALT 30 (16-63) U/L Alkaline Phosphatase 63 (46-116) U/L Troponin I High Sens 10.6 (4.0-76.1) pg/mL Total Protein 7.4 (6.4-8.2) g/dL Albumin 3.5 (3.4-5.0) g/dL Globulin 3.9 g/dL Albumin/Globulin Ratio 0.9 Discharge Plan Discharge Chief Complaint: Skin/Abscess/Foreign Body Clinical Impression: Cellulitis Qualifiers: Site of cellulitis: extremity Site of cellulitis of extremity: lower extremity Laterality: left Qualified Code(s): L03.116 - Cellulitis of left lower limb Patient Disposition: Admitted as Observation
[2025-05-18 04:17] VITALS: BP 174/88; PULSE 74; TEMP 36.3; O2SAT 98; BMI 27.7
--- NOTE | 2025-05-18 04:24 | PC.NURSE ---
Redness and swelling to BLE, no seeping, scabbed area to left lower leg.
[2025-05-18] MEDS: 0.9 % SODIUM CHLORIDE 1,000 ML 999 ML IV (04:58)
[2025-05-18] MEDS: FENTANYL CITRATE/PF 100 MCG/2 ML VIAL 50 MCG IV (04:58)
[2025-05-18 05:01] LABS: Hematocrit 42.5 % (42.0-54.0); Hemoglobin 14.5 g/dL (14.0-18.0); Immature Granulocytes Abs Auto 0.02 10^3/uL (0.00-0.03); Immature Granulocytes Pct Auto 0.3 % (0.0-0.5); Lymphocytes Absolute Auto 2.0 10^3/uL (1.2-3.8); Mean Corpuscular HGB Conc 34.1 g/dL (29.9-35.2); Mean Corpuscular Hemoglobin 30.5 pg (25.9-34.0); Mean Corpuscular Volume 89.3 fL (80.0-94.0); Platelet Count 220 10^3/uL (150-450); Red Blood Count 4.76 10^6/uL (4.70-6.10); White Blood Count 7.7 10^3/uL (4.0-11.0)
[2025-05-18 05:15] LABS: Lactate/Lactic Acid 0.7 mmol/L (0.4-2.0)
[2025-05-18 05:16] LABS: Alanine Aminotransferase 30 U/L (16-63); Albumin Globulin Ratio 0.9; Albumin Level 3.5 g/dL (3.4-5.0); Alkaline Phosphatase 63 U/L (46-116); Anion Gap 10.8; Aspartate Amino Transferase 20 U/L (15-37); Blood Urea Nitrogen 13.0 mg/dL (7.0-18.0); Calcium 9.1 mg/dL (8.5-10.1); Carbon Dioxide 28.4 mmol/L (21.0-32.0); Chloride 104 mmol/L (98-107); Estimated GFR (African America >60 (>=60 mL/min/1.73m^2); Estimated GFR (Non-African Ame >60 (>=60 mL/min/1.73m^2); Globulin 3.9 g/dL; Glucose 145 mg/dL (74-106); Potassium 4.2 mmol/L (3.5-5.1); Sodium 139 mmol/L (136-145); Total Protein 7.4 g/dL (6.4-8.2)
[2025-05-18 06:46] VITALS: BP 169/86; PULSE 76; TEMP 36.5; O2SAT 95; BMI 28.9
[2025-05-18 08:00] VITALS: BP 146/84; PULSE 73; TEMP 36.6; O2SAT 96
[2025-05-18] MEDS: 0.9 % SODIUM CHLORIDE 250 ML 10 ML IV (08:41)
[2025-05-18] MEDS: CEFAZOLIN SODIUM/DEXTROSE,ISO 1 GM/50 ML PREMIX IV ×2 (08:41→17:09)
[2025-05-18] MEDS: APIXABAN 5 MG TABLET PO ×2 (08:42→22:01)
[2025-05-18] MEDS: OXYCODONE HCL 5 MG TABLET PO ×2 (08:42→22:13)
[2025-05-18] MEDS: SERTRALINE HCL 100 MG TABLET PO (08:42)
[2025-05-18] MEDS: LAMOTRIGINE 100 MG TABLET PO (08:42)
[2025-05-18] MEDS: FUROSEMIDE 20 MG TABLET PO (08:42)
[2025-05-18] MEDS: QUETIAPINE FUMARATE 100 MG TABLET PO (08:42)
[2025-05-18] MEDS: ACETAMINOPHEN 325 MG TABLET 650 MG PO (08:42)
[2025-05-18] MEDS: METOPROLOL TARTRATE 50 MG TABLET PO (08:42)
[2025-05-18] MEDS: GABAPENTIN 400 MG CAPSULE 800 MG PO ×2 (13:05→22:01)
[2025-05-18] MEDS: INSULIN ASPART 300 UNIT/3 ML PEN SUBQ ×2 (13:05→17:15)
[2025-05-18 13:14] VITALS: BP 130/74; PULSE 65; TEMP 36.8; O2SAT 94
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
--- NOTE | 2025-05-18 14:33 | DIETREC ---
Recommend 2200 kcal CCD diet d/t dx IDDM.
[2025-05-18] MEDS: FUROSEMIDE 40 MG/4 ML VIAL IVP (14:56)
[2025-05-18 20:00] VITALS: PULSE 54
[2025-05-18] MEDS: POTASSIUM CHLORIDE 10 MEQ ER TABLET 20 MEQ PO (22:01)
[2025-05-18] MEDS: SENNOSIDES/DOCUSATE SODIUM 1 TAB TABLET PO (22:02)
[2025-05-18] MEDS: QUETIAPINE FUMARATE 25 MG TABLET PO (22:02)
[2025-05-19] MEDS: CEFAZOLIN SODIUM/DEXTROSE,ISO 1 GM/50 ML PREMIX IV ×3 (00:57→14:03)
[2025-05-19] MEDS: GABAPENTIN 400 MG CAPSULE 800 MG PO ×2 (06:11→14:03)
[2025-05-19 06:49] LABS: Hematocrit 45.5 % (42.0-54.0); Hemoglobin 15.0 g/dL (14.0-18.0); Immature Granulocytes Abs Auto 0.03 10^3/uL (0.00-0.03); Immature Granulocytes Pct Auto 0.4 % (0.0-0.5); Lymphocytes Absolute Auto 2.7 10^3/uL (1.2-3.8); Mean Corpuscular HGB Conc 33.0 g/dL (29.9-35.2); Mean Corpuscular Hemoglobin 30.5 pg (25.9-34.0); Mean Corpuscular Volume 92.5 fL (80.0-94.0); Platelet Count 210 10^3/uL (150-450); Red Blood Count 4.92 10^6/uL (4.70-6.10); White Blood Count 7.8 10^3/uL (4.0-11.0)
[2025-05-19 07:00] LABS: Anion Gap 10.0; Blood Urea Nitrogen 15.0 mg/dL (7.0-18.0); Calcium 9.1 mg/dL (8.5-10.1); Carbon Dioxide 29.3 mmol/L (21.0-32.0); Chloride 104 mmol/L (98-107); Estimated GFR (African America >60 (>=60 mL/min/1.73m^2); Estimated GFR (Non-African Ame >60 (>=60 mL/min/1.73m^2); Glucose 140 mg/dL (74-106); Potassium 4.3 mmol/L (3.5-5.1); Sodium 139 mmol/L (136-145)
[2025-05-19 08:18] VITALS: BP 175/93; PULSE 63; TEMP 36.6; O2SAT 97
[2025-05-19] MEDS: APIXABAN 5 MG TABLET PO (08:32)
[2025-05-19] MEDS: QUETIAPINE FUMARATE 100 MG TABLET PO (08:32)
[2025-05-19] MEDS: SERTRALINE HCL 100 MG TABLET PO (08:32)
[2025-05-19] MEDS: METOPROLOL TARTRATE 50 MG TABLET PO (08:32)
[2025-05-19] MEDS: POTASSIUM CHLORIDE 10 MEQ ER TABLET 20 MEQ PO (08:32)
[2025-05-19] MEDS: FUROSEMIDE 40 MG/4 ML VIAL IVP (08:32)
[2025-05-19] MEDS: LAMOTRIGINE 100 MG TABLET PO (08:35)
[2025-05-19] MEDS: OXYCODONE HCL 5 MG TABLET PO (08:36)
--- NOTE | 2025-05-19 14:09 | PM.DS1 ---
DS: Providers Provider Date of admission: 05/18/25 10:25 Primary care physician: WARD MALAGON Admitting clinician: SHAI LEE Attending physician on admission: SHAI LEE Attending physician on discharge: SHAI LEE Discharging clinician: SHAI LEE DS: Diagnosis Discharge Diagnosis (1) Cellulitis of right lower extremity: (2) Cellulitis of left lower extremity: (3) Diabetes: Qualifiers: Diabetes mellitus complication detail: with other skin complication Diabetes mellitus complication status: with skin complications Diabetes mellitus type: type 1 Qualified Code(s): E10.628 - Type 1 diabetes mellitus with other skin complications (4) Edema, peripheral: (5) Cognitive decline: (6) History of DVT (deep vein thrombosis): DS: Summary Hospital Course Hospital Course: This is a 60-year-old man who came to the ER twice in less than 24 hours with painful and very swollen cellulitis to both lower extremities. The first time he came to the emergency room he was offered admission to the hospital but he declined and left the ER. It seems that right around midnight on a Tuesday he was driving around and sort of confused and somehow whelmed up in [place] and he realized that he was confused so he left his vehicle at the [place] [employer] and then got a provide from the [facility] ambulance people back over here to the [place] [facility] and then he was admitted in the very associate account director hours on Tuesday. The patient has an unspecified cognitive disorder where he has a difficult time providing his history and speaks very slowly. This was exacerbated greatly by his severe sleep deprivation when he was first admitted. He does admit that he had fallen off of the [facility] and was not using his insulin and not taking his routine medications at home. For an unspecified reason he had been sleeping in a chair with his legs hanging down. He says that normally he sleeps in a bed and keeps his legs elevated. He has a history of deep vein thromboses in unspecified leg, or maybe both legs, and a pulmonary embolus so he is on lifelong anticoagulation with Eliquis. He has polyneuropathy so he is on high doses of gabapentin, which may also increase leg edema. And he is on Lasix at home, likely for the leg edema and he probably had been noncompliant with that. He has been been under the care of a wound care center a lot for different wounds on his legs and so at home he says that he has collagen and dressing equipment and special bandages that he uses on different scrapes and abrasions on his legs and he just had fallen out a use of using those products. On his second ER visit he was admitted to the hospital. He is maintained on IV antibiotics with Ancef. He spent a lot of Tuesday sleeping. His legs were elevated to bed. He was provided 40 mg of IV Lasix in the afternoon. The next morning on Tuesday he was given another 40 mg of Lasix IV. He was having an excellent diuresis from that. On Tuesday his legs were about 50% better the redness was about 50% improved and the edema was about 50% improved. He has some dry skin and a little bit of scabbing and areas on his legs, both of them sort of in the middle of the legs, where the cellulitis likely got in. On examination of his feet his feet are all normal. His toes and feet are normal without any concerns or wounds. He has some longer-term wounds especially on the left leg up by the knee where he scraped his leg probably several weeks ago and he has been caring for that at home and those do not look acutely infected. The patient has access to Keflex and Bactrim that was prescribed by the ER physician when he came to the ER the first time. These were sent to a pharmacy in [place]. 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 He has all of the collagen and wound care supplies that he needs at home and did not ask for any new prescriptions here. Status at Discharge Functional status at discharge: uses cane/walker Overall status at discharge: patient is progressing back to baseline Time Spent with Patient Time attestation: Total time spent providing and/or coordinating discharge services: 45 minutes. Time spent: less than 30 minutes Exam Narrative Exam Narrative: General: Yesterday the patient was very encephalopathic, most likely due to a lot of sleep deprivation. Neurologic: Today the patient is awake and alert. He can ambulate around his room with the assistance of his cane, as he does at home. He is much better historian. He still has a unusual way of speaking that is very slow and pressured. He does admit that he feels tremendously better overall. Much better than he did when admitted yesterday morning and probably looking much better than when he stumbled into the ER in the very associate account director hours. Pulmonary: Clear to auscultation throughout. No wheezing. No rhonchi. No crackles. Cardiac: Regular rate and rhythm. No murmurs auscultation. GI: Ab soft, normal bowel sounds to auscultation. Lower extremities: About a 50% improvement to the edema from his knees down to his ankles bilaterally. He has some wrinkling on the skin. He has about a 60% improvement on the redness to both lower extremities. There are no areas of drainage. No seeping. No purulence. He just has some dry scaly skin right in the middle of his shins which is probably how the bacteria got entry. He has a lot of scabs on the upper parts of his legs near the knees which are probably due to some injuries that were several weeks old. These are not acutely infected. The patient described how his wound care materials at home, from an unspecified wound care clinic, include collagen and special bandages and some other topical treatments and I think that all of these are important. On discharge I recommended the patient elevate his legs at home. He should be sleeping in a bed with his legs elevated. He should get plenty of light activity to use his muscles and improve blood flow to get the edema out of his legs. In a couple weeks when the cellulitis is gone and the wounds are much better healed I recommend that he get supportive stockings to help prevent him from having exacerbations of leg edema and cellulitis like this in the future. His hemoglobin A1c is 6.6 and his labs are normal and his ESR is only 26 and his CRP is negative so concern for deeper infection is basically Zero. Constitutional Vital Signs, click to edit/add: Last Vital Signs Temp 97.9 F 05/19/25 08:18 Pulse 63 05/19/25 08:18 Resp 16 05/19/25 08:18 BP 175/93 H 05/19/25 08:18 Pulse Ox 97 05/19/25 08:18 O2 Del Method Room Air 05/19/25 08:18 DS: Data Data Completed and Pending Labs on day of discharge: Labs from last 24 hours 05/19/25 05/19/25 05/18/25 11:10 06:30 22:00 WBC 7.8 RBC 4.92 Hgb 15.0 Hct 45.5 MCV 92.5 MCH 30.5 MCHC 33.0 RDW 13.1 Plt Count 210 MPV 9.2 L Neut % (Auto) 50.9 Lymph % (Auto) 35.4 [place] % (Auto) 9.0 Eos % (Auto) 3.0 Baso % (Auto) 1.3 Neut # (Auto) 4.0 Lymph # (Auto) 2.7 Tarrant # (Auto) 0.7 Eos # (Auto) 0.2 Baso # (Auto) 0.1 Abs Immat Gran (auto) 0.03 Imm/Tot Granulo (auto) 0.4 ESR 26 H Sodium 139 Potassium 4.3 Chloride 104 Carbon Dioxide 29.3 Anion Gap 10.0 BUN 15.0 Creatinine 0.91 Est GFR ( Amer) >60 Est GFR (Non-Af Amer) >60 BUN/Creatinine Ratio 16.5 Glucose 140 H Estimat Average Glucose 143 Hemoglobin A1c 6.6 H Calcium 9.1 C-Reactive Protein <0.50 POC Glucose 129 H 131 H 05/18/25 17:15 WBC RBC Hgb Hct MCV MCH MCHC RDW Plt Count MPV Neut % (Auto) Lymph % (Auto) Tarrant % (Auto) Eos % (Auto) Baso % (Auto) Neut # (Auto) Lymph # (Auto) [place] # (Auto) Eos # (Auto) Baso # (Auto) Abs Immat Gran (auto) Imm/Tot Granulo (auto) ESR Sodium Potassium Chloride Carbon Dioxide Anion Gap BUN Creatinine Est GFR ( Amer) Est GFR (Non-Af Amer) BUN/Creatinine Ratio Glucose Estimat Average Glucose Hemoglobin A1c Calcium C-Reactive Protein POC Glucose 165 H Discharge Plan Discharge Disposition: Home, Self-Care Discharge Medications: Continued quetiapine 25 mg tablet 25 mg PO .QHS oxcarbazepine 150 mg tablet 150 mg PO BID sertraline 100 mg tablet 100 mg PO .QD gabapentin 800 mg tablet 800 mg PO TID metoprolol tartrate 50 mg tablet 50 mg PO .QD furosemide 20 mg tablet 20 mg PO QAM gabapentin 100 mg capsule 100 mg PO TID lamotrigine 100 mg tablet 100 mg PO .QD insulin degludec [Tresiba FlexTouch U-200] 200 unit/mL (3 mL) insulin pen 10 unit SUBCUT DAILY Eliquis 5 mg tablet 5 mg PO BID oxycodone-acetaminophen 5-325 mg tablet 1 tab PO Q6H cephalexin 500 mg tablet 500 mg PO QID 7 Days Qty: 28 0RF sulfamethoxazole-trimethoprim [Bactrim DS] 800-160 mg tablet 1 tab PO BID 7 Days Qty: 14 0RF Trulicity 0.75 mg/0.5 mL pen injector 4.5 mg SUBCUT .weekly quetiapine 100 mg tablet 100 mg PO DAILY Activity: increase activity as tolerated Diet: advance to your usual diet Print Language: Turkish Patient Instructions: Cellulitis (ED) Forms: Portal Instructions
[2025-05-19] MEDS: ACETAMINOPHEN 325 MG TABLET 650 MG PO (17:33)
--- NOTE | 2025-05-20 08:12 | PC.NURSE ---
Follow up appt. with Jacquie Townsend NP on 05/24 @ 12:30pm [phone]
--- NOTE | 2025-05-20 11:52 | CM.DCFOLLOWU ---
1st attempt 05/20/25, no answer, left voicemail about follow up apt scheduled for 05/24
--- NOTE | 2025-05-21 12:45 | CM.DCFOLLOWU ---
2nd attempt 05/21/25, no answer
--- NOTE | 2025-05-22 14:55 | CM.DCFOLLOWU ---
3rd attempt 05/22/25, no answer
== END 2025-05-19 18:07 | disposition home or self-care (01) | DRG 638 ==
LOC: ER 06:03 → MS 06:35
PROVIDERS: Admitting Provider Hospitalist; Emergency Provider Internal Medicine; PCP Physician Assistant; Visit Provider Hospitalist
DX: E10.628 Type 1 diabetes mellitus with other skin complications (principal); L03.115 Cellulitis of right lower limb; L03.116 Cellulitis of left lower limb; Z91.81 History of falling; Z79.01 Long term (current) use of anticoagulants; Z79.4 Long term (current) use of insulin; R60.0 Localized edema; E10.42 Type 1 diabetes mellitus with diabetic polyneuropathy; Z86.718 Personal history of other venous thrombosis and embolism; Z86.711 Personal history of pulmonary embolism; Z79.85 Long-term (current) use of injectable non-insulin antidiabetic drugs; Z79.899 Other long term (current) drug therapy; T38.3X6A Underdosing of insulin and oral hypoglycemic [antidiabetic] drugs, initial encounter; Z91.148 Patient's other noncompliance with medication regimen for other reason; I10 Essential (primary) hypertension; Z53.29 Procedure and treatment not carried out because of patient's decision for other reasons; Z98.52 Vasectomy status; F17.200 Nicotine dependence, unspecified, uncomplicated; R41.81 Age-related cognitive decline; T50.1X6A Underdosing of loop [high-ceiling] diuretics, initial encounter
CPT/HCPCS: 36415; 73590; 80048; 80053; 81003; 82948; 83036; 83605; 83735; 84484; 85025; 85652; 86140; 87040; 96365; 96374; 99285; J0690; J0696; J1938; J3010

== ENCOUNTER 2025-05-24 13:25 | Outpatient (OUT) | payer MEDICARE, SELFPAY ==
[2025-05-24 14:30] LABS: Anion Gap 12.2; Blood Urea Nitrogen 14.0 mg/dL (7.0-18.0); Calcium 8.9 mg/dL (8.5-10.1); Carbon Dioxide 26.0 mmol/L (21.0-32.0); Chloride 104 mmol/L (98-107); Estimated GFR (African America >60 (>=60 mL/min/1.73m^2); Estimated GFR (Non-African Ame >60 (>=60 mL/min/1.73m^2); Glucose 196 mg/dL (74-106); Potassium 4.2 mmol/L (3.5-5.1); Sodium 138 mmol/L (136-145)
== END 2025-05-24 13:26 | disposition home or self-care (01) ==
PROVIDERS: PCP Physician Assistant; Visit Provider Physician Assistant
DX: E11.69 Type 2 diabetes mellitus with other specified complication (principal); Z79.4 Long term (current) use of insulin; R60.9 Edema, unspecified
CPT/HCPCS: 36415; 80048

== ENCOUNTER 2025-06-30 03:50 | Emergency (ER) | payer MEDICARE, SELFPAY ==
--- OUTSIDE RECORDS SUMMARY | 2025-06-30 03:56 | XMS_ITS | Encounter Summary ---
Author Organization [facility] Address [address] [place] [address] Care Team Providers Care Social Services Analyst Name Role Phone Carrol Sethi MD Primary Care Provider [phone] Jacquie Townsend PA Unavailable [phone] Melanie Gallegos LPN Unavailable Encounter Details Date Type Department Care Team (Late Contact Info) Description 05/05/2023 Abstract [facility] [place] [address] [facility] 110 [place] [address] Carrol Sethi MD [address] [facility] 110 [place] [address] Social History Tobacco Use Types Packs/Day Years [...] Department Care Team (Late Contact Info) Description 07/09/2025 2:00 PM EDT Office Visit [facility] [place] [facility] [address] [facility] [address] [place] [address] Jacquie Townsend PA [address] [facility] 110 [place] [address] documented as of this encounter Visit Diagnoses Not on filedocumented in this encounter Care Teams Social Services Analyst Relationship Specialty Start Date End Date Carrol Sethi MD [address] [facility] 110 [place] [address] PCP - General Family Medicine 01/18/23 Jacquie Townsend PA [address] [facility] 110 [place] [address] PCP - ACO Reach 10/19/24 Melanie Gallegos LPN [address] [facility] 110 [place] [address] 05/03/25 05/07/25 documented as of this encounter
--- OUTSIDE RECORDS SUMMARY | 2025-06-30 03:56 | XMS_ITS | Encounter Summary ---
Author Organization [facility] Address [address] [facility] [place] [address] Care Team Providers Care Dish Washer Name Role Phone Carrol Sethi MD Primary Care Provider [phone] Jacquie Townsend Unavailable [phone] Melanei Gallegos LPN Unavailable Encounter Details Date Type Department Care Team (Late Contact Info) Description 04/12/2025 Abstract [facility] [address] [place] [address] Solitario Simmons, DPM FACFAS [address] [facility] [place] [address] Social History Tobacco Use Types [...] Care Team (Late st Contact Info) Description 07/09/2025 2:00 PM EDT Office Visit [facility] [place] [facility] [address] [facility] 110 [place] [id number] Jacquie Townsend PA [address] [facility] 110 [place] [address] documented as of this encounter Visit Diagnoses Not on filedocumented in this encounter Additional Health Concerns Assessment Noted Time PHQ-9 Depression Total Score: 0 01/17/20 25 2:00 PM EDT documented as of this encounter Care Teams Dish Washer Relationship Specialty Start Date End Date Carrol Sethi MD [address] [facility] [address] [place] [address] PCP - General Family Medicine 01/18/23 Jacquie Townsend PA [address] [facility] [address] [place] [address] PCP - ACO Reach 10/19/24 Melanie Gallegos LPN [address] [facility] [address] [place] [address] 05/03/25 05/07/25 documented as of this encounter
--- OUTSIDE RECORDS SUMMARY | 2025-06-30 03:56 | XMS_ITS | Encounter Summary ---
Author Organization [facility] Address [address] [place] [address] Care Team Providers Care Command And Control Specialist Name Role Phone Carrol Sethi MD Primary Care Provider [phone] Jacquie Townsend PA Unavailable [phone] Melanie Gallegos LPN Unavailable Encounter Details Date Type Department Care Team (Late Contact Info) Description 04/03/2025 Abstract [facility] [place] [address] [facility] 110 [place] [address] Carrol Sethi MD [address] [facility] 110 [place] [address] Social History Tobacco Use Types Packs/Day Years [...] 2:00 PM EDT Office Visit [facility] [place] [facility] [address] [facility] 110 [place] [address] Jacquie Townsend PA [address] [facility] 110 [place] [address] documented as of this encounter Visit Diagnoses Not on filedocumented in this encounter Additional Health Concerns Assessment Noted Time PHQ-9 Depression Total Score: 0 01/17/20 25 2:00 PM EDT documented as of this encounter Care Teams Command And Control Specialist Relationship Specialty Start Date End Date Carrol Sethi MD [address] [facility] [address] [place] [address] PCP - General Family Medicine 01/18/23 Jacquie Townsend PA [address] [facility] [address] [place] [address] PCP - ACO Reach 10/19/24 Melanie Gallegos LPN [address] [facility] [address] [place] [address] 05/03/25 05/07/25 documented as of this encounter
--- OUTSIDE RECORDS SUMMARY | 2025-06-30 03:56 | XMS_ITS | Encounter Summary ---
Author Organization [employer] Address [id number] [address] [place] [address] Care Team Providers Care Soap Worker Name Role Phone Jacquie Townsend Primary Care Provider [phone] Reason for Visit * Reason Onset Date Comments Referral to Neurology 06/18/2021 Encounter Details Date Type Department Care Team (Late st Contact Info) Description 06/18/2021 Telephone [facility] [address] [place] [address] Elizabeth Trejo Referral to Neurology [...] documented as of this encounter Care Teams Soap Worker Relationship Specialty Start Date End Date Jacquie Townsend PA PCP - General Physician Public Health Informatician 11/01/22 documented as of this encounter
--- OUTSIDE RECORDS SUMMARY | 2025-06-30 03:56 | XMS_ITS | Encounter Summary ---
Author Organization [facility] Address [address] [place] [address] Care Team Providers Care Simplex Operator Name Role Phone Carrol Sethi MD Primary Care Provider [phone] Jacquie Townsend PA Unavailable [phone] Encounter Details Date Type Department Care Team (Late st Contact Info) Description 05/27/2025 Abstract [facility] [place] [address] [facility] 110 [place] [address] Carrol Sethi MD [address] [facility] 110 [place] [address] Social History Tobacco Use Types Packs/Day Years Used Date Smoking Tobacco: Never Smokeless Tobacco: Never Alcohol Use Standard Drinks/Week Comments Not Currently 0 (1 standard drink = 0.6 oz pure alcohol) Caffeine intake: 1-2 cups per day coffee PHQ-2 Answer Date Recorded Patient Health Questionnaire-2 Score 0 05/24/2025 Sex and Gender Information Value Date Recorded [...] Office Visit [facility] [place] [facility] [address] [facility] [address] [place] [address] Jacquie Townsend PA [address] [facility] 110 [place] [address] documented as of this encounter Visit Diagnoses Not on filedocumented in this encounter Additional Health Concerns Assessment Noted Time PHQ-9 Depression Total Score: 0 01/17/20 25 2:00 PM EDT documented as of this encounter Care Teams Simplex Operator Relationship Specialty Start Date End Date Carrol Sethi MD [address] [facility] 110 [place], [place] [id number] PCP - General Family Medicine 01/18/23 Jacquie Townsend PA [address] [facility] 110 [place], [place] [address] PCP - ACO Reach 10/19/24 documented as of this encounter
--- OUTSIDE RECORDS SUMMARY | 2025-06-30 03:56 | XMS_ITS | Encounter Summary ---
Author Organization [facility] Address [address] [place] [address] Care Team Providers Care Head Cleaning Porter Name Role Phone Carrol Sethi MD Primary Care Provider [phone] Jacquie Townsend PA Unavailable [phone] Melanie Gallegos LPN Unavailable Encounter Details Date Type Department Care Team (Late Contact Info) Description 01/17/2025 Abstract [facility] [place] [address] [facility] 110 [place] [address] Carrol Sethi MD [address] [facility] 110 [place] [address] Social History Tobacco Use Types Packs/Day Years [...] [address] [facility] 110 [place] [address] Jacquie Townsedn PA [address] [facility] 110 [place] [address] documented as of this encounter Visit Diagnoses Not on filedocumented in this encounter Additional Health Concerns Assessment Noted Time PHQ-9 Depression Total Score: 0 01/17/20 25 2:00 PM EDT documented as of this encounter Care Teams Head Cleaning Porter Relationship Specialty Start Date End Date Carrol Sethi MD [address] [facility] 110 [place] [address] PCP - General Family Medicine 01/18/23 Jacquie Townsend PA [address] [facility] 110 [place] [address] PCP - ACO Reach 10/19/24 Melanie Gallegos LPN [address] [facility] 110 [place] [address] 05/03/25 05/07/25 documented as of this encounter
--- OUTSIDE RECORDS SUMMARY | 2025-06-30 03:56 | XMS_ITS | Encounter Summary ---
Author Organization [facility] Address [address] [place] [address] Care Team Providers Care Biometrics Technician Name Role Phone Carrol Sethi MD Primary Care Provider [phone] Jacquie Townsend PA Unavailable [phone] Melanie Gallegos LPN Unavailable Encounter Details Date Type Department Care Team (Late Contact Info) Description 03/21/2025 Abstract [facility] [place] [address] [email or web address] 110 [place] [address] Carrol Sethi MD [address] [facility] 110 [place] [address] Social History Tobacco Use Types Packs/Day Years [...] PM EDT Office Visit [facility] [place] [facility] [address] [email or web address] 110 [place] [address] Jacquie Townsend PA [address] [facility] 110 [place] [address] documented as of this encounter Visit Diagnoses Not on filedocumented in this encounter Additional Health Concerns Assessment Noted Time PHQ-9 Depression Total Score: 0 01/17/20 25 2:00 PM EDT documented as of this encounter Care Teams Biometrics Technician Relationship Specialty Start Date End Date Carrol Sethi MD [address] [facility] [address] [place] [address] PCP - General Family Medicine 01/18/23 Jacquie Townsend PA [address] [facility] 110 [place] [address] PCP - ACO Reach 10/19/24 Melanie Gallegos LPN [address] [facility] 110 [place] [address] 05/03/25 05/07/25 documented as of this encounter
--- OUTSIDE RECORDS SUMMARY | 2025-06-30 03:56 | XMS_ITS | Encounter Summary ---
Author Organization [facility] Address [address] [place] [address] Care Team Providers Care Tie Inspector Name Role Phone Carrol Sethi MD Primary Care Provider [phone] Jacquie Townsend PA Unavailable [phone] Melanie Gallegos LPN Unavailable Encounter Details Date Type Department Care Team (Late Contact Info) Description 01/09/2025 Abstract [facility] [place] [address] [facility] 110 [place] [address] Carrol Sethi MD [address] [facility] 110 [place] [address] Social History Tobacco Use Types Packs/Day Years [...] PM EDT Office Visit [facility] [place] [facility] [address] [facility] 110 [place] [address] Jacquie Townsend PA [address] [facility] [address] [place] [address] documented as of this encounter Visit Diagnoses Not on filedocumented in this encounter Additional Health Concerns Assessment Noted Time PHQ-9 Depression Total Score: 0 01/16/20 24 1:00 PM EDT documented as of this encounter Care Teams Tie Inspector Relationship Specialty Start Date End Date Carrol Sethi MD [address] [facility] 110 [place] [address] PCP - General Family Medicine 01/18/23 Jacquie Townsend PA [address] [facility] 110 [place] [address] PCP - ACO Reach 10/19/24 Melanie Gallegos LPN [address] [facility] 110 [place] [address] 05/03/25 05/07/25 documented as of this encounter
--- OUTSIDE RECORDS SUMMARY | 2025-06-30 03:56 | XMS_ITS | Encounter Summary ---
Author Organization [facility] Address [address] [place] [address] Care Team Providers Care Transitional Nurse Name Role Phone Carrol Sethi MD Primary Care Provider Jacquie Townsend PA Unavailable [phone] Melanie Gallegos LPN Unavailable Encounter Details Date Type Department Care Team (Late Contact Info) Description 03/21/2025 Abstract [facility] [place] [address] [facility] 110 [place] [address] Carrol Sethi MD [address] [facility] 110 [place] [address] Social History Tobacco Use Types Packs/Day Years [...] PM EDT Office Visit [facility] [place] [facility] [address] [facility] 110 [place] [address] Jacquie Townsend PA [address] [facility] 110 [place] [address] documented as of this encounter Visit Diagnoses Not on filedocumented in this encounter Additional Health Concerns Assessment Noted Time PHQ-9 Depression Total Score: 0 01/17/20 25 2:00 PM EDT documented as of this encounter Care Teams Transitional Nurse Relationship Specialty Start Date End Date Carrol Sethi MD [address] [facility] [address] [place] [address] PCP - General Family Medicine 01/18/23 Jacquie Townsend PA [address] [facility] [address] [place] [address] PCP - ACO Reach 10/19/24 Melanie Gallegos LPN [address] [facility] [address] [place] [address] 05/03/25 05/07/25 documented as of this encounter
--- OUTSIDE RECORDS SUMMARY | 2025-06-30 03:56 | XMS_ITS | Encounter Summary ---
Author Organization [facility] Address [address] [place] [address] Care Team Providers Care Patents Examiner Name Role Phone Carrol Sethi MD Primary Care Provider [phone] Jacquie Townsend PA Unavailable [phone] Encounter Details Date Type Department Care Team (Late st Contact Info) Description 06/05/2025 Abstract [facility] [place] N[facility]ent 112 [facility] 110 [place] [address] Carrol Sethi MD [address] [facility] 110 [place] [address] Social History Tobacco Use Types Packs/Day Years [...] Office Visit [facility] [place] [address] [facility] 110 [place] [address] Jacquie Townsend PA [address] [facility] 110 [place] [address] documented as of this encounter Visit Diagnoses Not on filedocumented in this encounter Additional Health Concerns Assessment Noted Time PHQ-9 Depression Total Score: 0 01/17/20 25 2:00 PM EDT documented as of this encounter Care Teams Patents Examiner Relationship Specialty Start Date End Date Carrol Sethi MD [address] [facility] 110 [place], [place] [id number] PCP - General Family Medicine 01/18/23 Jacquie Townsend PA [address] [facility] 110 [place], [place] [address] PCP - ACO Reach 10/19/24 documented as of this encounter
--- OUTSIDE RECORDS SUMMARY | 2025-06-30 03:56 | XMS_ITS | Encounter Summary ---
Author Organization [facility] Address [address] [place] [address] Care Team Providers Care Research And Development Tester Name Role Phone Carrol Sethi MD Primary Care Provider [phone] Jacquie Townsend Unavailable [phone] Melanie Gallegos LPN Unavailable Reason for Visit * Reason Comments Med Refill Encounter Details Date Type Department Care Team (Late st Contact Info) Description 04/04/2023 Refill [facility] [place] [facility] [address] [facility] 110 [place] [address] Jacquie Townsend PA [address] [facility] 110 [place] [address] Bilateral lower extremity edema (Primary Dx); Type [...] PM EDT Office Visit [facility] [place] [facility] [address] [facility] 110 [place] [address] Jacquie Townsend PA [address] [facility] 110 [place] [address] documented as of this encounter Visit Diagnoses Diagnosis Bilateral lower extremity edema- Primary Type 2 diabetes mellitus without complication, without long-term current use of insulin (HCC) documented in this encounter Care Teams Research And Development Tester Relationship Specialty Start Date End Date Carrol Sethi MD [address] [facility] 110 [place] [address] PCP - General Family Medicine 01/18/23 Jacquie Townsend PA [address] [facility] 110 [place] [address] PCP - ACO Reach 10/19/24 Melanie Gallegos LPN [address] [facility] 110 [place] [address] 05/03/25 05/07/25 documented as of this encounter
--- OUTSIDE RECORDS SUMMARY | 2025-06-30 03:56 | XMS_ITS | Clinical Summary ---
Author Organization [facility] ClassBadges [facility] tem Address [facility] [id number] [address] [place] [address] Care Team Providers Care Grad Intern Name Role Phone Jacquie Townsend Primary Care Provider [phone] Allergies No known active allergies Medications gabapentin [...] total) by mouth in the morning. Active Encounters Date Type Department Care Team Description 05/12/2025 9:15 PM EDT - 05/13/2025 12:48 AM EDT Emergency [facility] - Emergency [address] [place] [address] Arya Godfrey, Recurrent falls while walking (Primary [...] (05/13/2025 12:15 AM EDT) POC Urine Specific [place] 1.010 1.010, 1.015, 1.020, 1.025 05/13/2025 12:04 AM EDT [facility] POC Urine Leukocyte Esterase Negative Negative 05/13/2025 12:04 AM EDT [facility] POC Urine Nitrite Negative Negative 05/13/2025 12:04 AM EDT [facility] POC Urine pH 7.0 5.0, 6.0, 6.5, 7.0, 7.5, 8.0, 8.5, 5.5 05/13/2025 12:04 AM EDT [facility] POC Urine Protein Negative Negative 05/13/2025 12:04 AM EDT [facility] POC Urine Glucose Negative Negative 05/13/2025 12:04 AM EDT [facility] POC Urine Ketones Negative Negative 05/13/2025 12:04 AM EDT [facility] POC Urine Urobilinogen 0.2 E.U./dL 05/13/2025 12:04 AM EDT [facility] POC Urine Bilirubin Negative Negative 05/13/2025 12:04 AM EDT [facility] POC Urine Blood/HGB Negative Negative 05/13/2025 12:04 AM EDT [facility] Urine 05/13/2025 12:1 5 AM EDT 05/13/2025 12:04 AM EDT Arya Godfrey DO POINT OF CARE TEST ORDERA BLES Final Result Performing Organization Address [facility]/ZIP Co de Phone Number [address] [place] [address], [place] * Extra Urine Long Key (05/12/2025 11:59 PM EDT) Extra Tube Auto Resulted 05/13/2025 1:01 AM EDT [facility] Urine Urine specimen collection, clean catch / Unknown 05/12/2025 11:59 PM EDT 05/13/2025 12:21 AM EDT us Arya Godfrey DO URINE ORDERABLES Final Re sult Performing Organization Address [facility] Co de Phone Number [address] [place] [address], [place] * Extra Urine Culture (05/12/2025 11:59 PM EDT) Extra Tube Auto Resulted 05/13/2025 1:01 AM EDT [facility] Urine Urine specimen collection, clean catch / Unknown 05/12/2025 11:59 PM EDT 05/13/2025 12:21 AM EDT us Arya Godfrey DO URINE ORDERABLES Final Re sult Performing Organization Address [facility] Co de Phone Number [address] [place] [address], [place] * Extra Urine (05/12/2025 11:59 PM EDT) Extra Tube Auto Resulted 05/13/2025 1:01 AM EDT [facility] Urine Urine specimen collection, clean catch / Unknown 05/12/2025 11:59 PM EDT 05/13/2025 12:21 AM EDT us Arya Godfrey DO URINE ORDERABLES Final Re sult [facility] [address] [place] [address], [place] * CT chest with contrast (05/12/2025 [...] Alexi Amaya MD on 05/12/2025 11:23 PM us Arya Barger Epifanio DO IMG DIAGNOSTIC IMAGING OR DERABLES Final [...] Rubalcava MD on 05/12/2025 11:24 PM Arya Charbel Godfrey DO IMG DIAGNOSTIC IMAGING OR DERABLES Final Result * Lactate w/ Reflex (05/12/2025 9:54 PM EDT) LACTATE W/REFLEX 1.0 0.4 - 2.0 mmol/L 05/12/2025 10:15 PM EDT [facility] Blood Venous blood / Unknown Venipuncture / Unknown 05/12/2025 9:54 PM EDT 05/12/2025 9:57 PM EDT Narrative [facility] - 05/12/2025 10:15 PM EDT Result did not trigger repeat Lactate, re-order if needed. Arya Godfrey DO LAB BLOOD ORDERABLES Haleigh l Result Performing Organization Address City/[facility]/ZIP Co de Phone Number [address] [place] [address], [place] * Critical Care (05/12/2025 9:44 PM EDT) [...] >500 per glucometer. (05/12/2025 9:35 PM EDT) Pathologist [facility] Bedside Glucose (POC) 262(H) 65 - 99 mg/dL 05/12/2025 9:38 PM EDT [facility] arterial/capilla ry 05/12/2025 9:35 PM EDT 05/12/2025 9:38 PM EDT Arya Godfrey DO POINT OF CARE TEST ORDERA BLES Final Result Performing Organization Address City/[facility]/ZIP Co de Phone Number [address] [place] [address], [place] * CBC auto differential (05/12/2025 9:32 PM EDT) WBC 6.3 4 - 11 x10E9/L 05/12/2025 9:53 PM EDT [facility] RBC Count 4.72 4.1 - 5.7 X10E12/L 05/12/2025 9:53 PM EDT [facility] Hemoglobin 14.3 13 - 17 g/dL 05/12/2025 9:53 PM EDT [facility] Hematocrit 42.0 39 - 50 % 05/12/2025 9:53 PM EDT [facility] MCV 89 80 - 100 fL 05/12/2025 9:53 PM EDT [facility] MCH 30.4 27 - 34 pg 05/12/2025 9:53 PM EDT [facility] MCHC 34.1 32 - 36 g/dL 05/12/2025 9:53 PM EDT [facility] RDW 14.0 11.5 - 15 % 05/12/2025 9:53 PM EDT [facility] Platelet Count 207 150 - 450 X10E9/L 05/12/2025 9:53 PM EDT [facility] MPV 7.3 7 - 12 fL 05/12/2025 9:53 PM EDT [facility] Neutrophils % 69.0 % 05/12/2025 9:53 PM EDT [facility] Lymphocytes % 18.4 % 05/12/2025 9:53 PM EDT [facility] Monocytes % 9.5 % 05/12/2025 9:53 PM EDT [facility] Eosinophils % 1.7 % 05/12/2025 9:53 PM EDT [facility] Basophils % 1.4 % 05/12/2025 9:53 PM EDT [facility] Neutrophils Absolute (A) 4.4 1.5 - 6.6 10*3/uL 05/12/2025 9:53 PM EDT [facility] Lymphocytes Absolute 1.2 1.0 - 3.5 10*3/uL 05/12/2025 9:53 PM EDT [facility] Monocytes Absolute 0.6 0.0 - 0.9 10*3/uL 05/12/2025 9:53 PM EDT [facility] Eosinophils Absolute 0.1 0.0 - 0.4 10*3/uL 05/12/2025 9:53 PM EDT [facility] Basophils Absolute 0.1 0.0 - 0.2 10*3/uL 05/12/2025 9:53 PM EDT [facility] Differential Type AUTOMATED DIFFERENTIAL 05/12/2025 9:53 PM EDT [facility] Blood Venous blood / Unknown Venipuncture / Unknown 05/12/2025 9:32 PM EDT 05/12/2025 9:34 PM EDT Arya Godfrey DO LAB BLOOD ORDERABLES Haleigh l Result Performing Organization Address City/[facility]/ZIP Co de Phone Number [address] [place] [address], [place] * Magnesium (05/12/2025 9:32 PM EDT) MAGNESIUM 1.9 1.8 - 2.6 mg/dL 05/12/2025 9:55 PM EDT [facility] Blood Venous blood / Unknown Venipuncture / Unknown 05/12/2025 9:32 PM EDT 05/12/2025 9:34 PM EDT Arya Godfrey DO LAB BLOOD ORDERABLES Haleigh l Result Performing Organization Address City/[facility]/ZIP Co de Phone Number [address] [place] [address], [place] * (ABNORMAL) CK Total (05/12/2025 9:32 PM EDT) CPK 253(H) 24 - 195 U/L 05/12/2025 9:55 PM EDT [facility] Blood Venous blood / Unknown Venipuncture / Unknown 05/12/2025 9:32 PM EDT 05/12/2025 9:34 PM EDT Arya Vegaandrade Clementet DO LAB BLOOD ORDERABLES Haleigh l Result Performing Organization Address [facility] Co de Phone Number [address] [place] [address], [place] * Ethanol (05/12/2025 9:32 PM EDT) ETHANOL <0.010 <=0.080 g/dL 05/12/2025 9:55 PM EDT [facility] Comment: This report is intended for use in clinical monitoring or management of patients. Blood Venous blood / Unknown Venipuncture / Unknown 05/12/2025 9:32 PM EDT 05/12/2025 9:34 PM EDT Arya Godfrey DO LAB BLOOD ORDERABLES Haleigh l Result Performing Organization Address [facility] Co de Phone Number [address] [place] [address], [place] * (ABNORMAL) Comprehensive metabolic panel (05/12/2025 9:32 PM EDT) SODIUM 134 134 - 146 mmol/L 05/12/2025 9:55 PM EDT [facility] POTASSIUM 4.1 3.5 - 5.0 mmol/L 05/12/2025 9:55 PM EDT [facility] CHLORIDE 101 98 - 109 mmol/L 05/12/2025 9:55 PM EDT [facility] CARBON DIOXIDE 26 22 - 32 mmol/L 05/12/2025 9:55 PM EDT [facility] ANION GAP 7 5 - 15 mmol/L 05/12/2025 9:55 PM EDT [facility] BLOOD UREA NITROGEN 14 5 - 27 mg/dL 05/12/2025 9:55 PM EDT [facility] CREATININE 0.98 0.70 - 1.20 mg/dL 05/12/2025 9:55 PM EDT [facility] Comment:METHOD TRACEABLE TO IDNM STANDARD GLUCOSE 275(H) 65 - 99 mg/dL 05/12/2025 9:55 PM EDT [facility] CALCIUM 9.3 8.5 - 10.5 mg/dL 05/12/2025 9:55 PM EDT [facility] TOTAL PROTEIN 7.1 6.0 - 8.0 g/dL 05/12/2025 9:55 PM EDT [facility] ALBUMIN 4.0 3.2 - 5.3 g/dL 05/12/2025 9:55 PM EDT [facility] ALKALINE PHOSPHATASE 55 39 - 130 U/L 05/12/2025 9:55 PM EDT [facility] AST 26 <=41 U/L 05/12/2025 9:55 PM EDT [facility] ALT 24 <=40 U/L 05/12/2025 9:55 PM EDT [facility] BILIRUBIN,TOTAL 0.8 0.3 - 1.2 mg/dL 05/12/2025 9:55 PM EDT [facility] EGFR Non-Race Dependent 87 >=60 ml/min/1.7 3sq.m 05/12/2025 9:55 PM EDT [facility] Comment: eGFR not reported due to non-numeric value for Creatinine. Reported eGFR is based on the CKD-EPI 2020 equation that does not use a race coefficient. Blood Venous blood / Unknown Venipuncture / Unknown 05/12/2025 9:32 PM EDT 05/12/2025 9:34 PM EDT us Arya Godfrey DO LAB BLOOD ORDERABLES Haleigh shelton Result [facility] [address] [facility] [place] [address], [place] from Last 3 Months Insurance MEDICARE Care Teams Grad Intern Relationship Specialty Start Date End Date Jacquie Townsend PA PCP - General Physician Modeling Director 11/01/22
--- OUTSIDE RECORDS SUMMARY | 2025-06-30 03:56 | XMS_ITS | Encounter Summary ---
Author Organization [facility] Address [address] [place] [address] Care Team Providers Care Photo Graphics Librarian Name Role Phone Carrol Sethi MD Primary Care Provider [phone] Jacquie Townsend PA Unavailable [phone] Melanie Gallegos LPN Unavailable Encounter Details Date Type Department Care Team (Late Contact Info) Description 01/21/2025 Abstract [facility] [place] [address] [facility] 110 [place] [address] Carrol Sethi MD [address] [facility] 110 [place] [address] Social History Tobacco Use Types Packs/Day Years [...] Office Visit [facility] [place] [facility] [address] [facility] 110 [place] [address] Jacquie Townsend PA [address] [facility] 110 [place] [address] documented as of this encounter Visit Diagnoses Not on filedocumented in this encounter Additional Health Concerns Assessment Noted Time PHQ-9 Depression Total Score: 0 01/17/20 25 2:00 PM EDT documented as of this encounter Care Teams Photo Graphics Librarian Relationship Specialty Start Date End Date Carrol Sethi MD [address] [facility] 110 [place] [address] PCP - General Family Medicine 01/18/23 Jacquie Townsend PA [address] [facility] 110 [place] [address] PCP - ACO Reach 10/19/24 Melanie Gallegos LPN [address] [facility] 110 [place] [address] 05/03/25 05/07/25 documented as of this encounter
--- OUTSIDE RECORDS SUMMARY | 2025-06-30 03:56 | XMS_ITS | Encounter Summary ---
Author Organization [facility] Address [address] [place] [address] Care Team Providers Care Pedal Assembler Name Role Phone Carrol Sethi MD Primary Care Provider [phone] Jacquie Townsend PA Unavailable [phone] Melanie Gallegos LPN Unavailable Encounter Details Date Type Department Care Team (Late Contact Info) Description 01/09/2025 Abstract [facility] [place] Nugent [address] [facility] 110 [place] [address] Carrol Sethi MD [address] [facility] 110 [place] [address] Social History Tobacco Use Types Packs/Day Years [...] PM EDT Office Visit [facility] [place] Mendoza [facility] [address] [facility] 110 [place] [address] Jacquie Townsend PA [address] [facility] 110 [place] [address] documented as of this encounter Visit Diagnoses Not on filedocumented in this encounter Additional Health Concerns Assessment Noted Time PHQ-9 Depression Total Score: 0 01/16/20 24 1:00 PM EDT documented as of this encounter Care Teams Pedal Assembler Relationship Specialty Start Date End Date Carrol Sethi MD [address] [facility] 110 [place] [address] PCP - General Family Medicine 01/18/23 Jacquie Townsend PA [address] [facility] [address] [place] [address] PCP - ACO Reach 10/19/24 Melanie Gallegos LPN [address] [facility] 110 [place] [address] 05/03/25 05/07/25 documented as of this encounter
--- OUTSIDE RECORDS SUMMARY | 2025-06-30 03:56 | XMS_ITS | Encounter Summary ---
Author Organization [facility] Address [address] [place] [address] Care Team Providers Care Superintendent Meters Name Role Phone Carrol Sethi MD Primary Care Provider [phone] Jacquie Townsend PA Unavailable [phone] Melanie Gallegos LPN Unavailable Encounter Details Date Type Department Care Team (Late Contact Info) Description 03/25/2025 Abstract [facility] [place] Nugent [address] [facility] 110 [place] [address] Carrol Sethi MD [address] [facility] 110 [place] [address] Social History Tobacco Use Types Packs/Day Years [...] PM EDT Office Visit [facility] [place] Mendoza [facility] [address] [facility] 110 [place] [address] Jacquie Townsend PA [address] [facility] [address] [place] [address] documented as of this encounter Visit Diagnoses Not on filedocumented in this encounter Additional Health Concerns Assessment Noted Time PHQ-9 Depression Total Score: 0 01/17/20 25 2:00 PM EDT documented as of this encounter Care Teams Superintendent Meters Relationship Specialty Start Date End Date Carrol Sethi MD [address] [facility] [address] [place] [address] PCP - General Family Medicine 01/18/23 Jacquie Townsend PA [address] [facility] [address] [place] [address] PCP - ACO Reach 10/19/24 Melanie Gallegos LPN [address] [facility] [address] [place] [address] 05/03/25 05/07/25 documented as of this encounter
--- OUTSIDE RECORDS SUMMARY | 2025-06-30 03:56 | XMS_ITS | Encounter Summary ---
Author Organization [facility] Address [address] [place] [address] Care Team Providers Care Infection Control Coordinator Name Role Phone Carrol Sethi MD Primary Care Provider [phone] Jacquie Townsend PA Unavailable [phone] Melanie Gallegos LPN Unavailable Encounter Details Date Type Department Care Team (Late Contact Info) Description 04/04/2025 Abstract [facility] [place] Nugent [address] [facility] 110 [place] [address] Carrol Sethi MD [address] [facility] 110 [place] [address] Social History Tobacco Use Types Packs/Day Years [...] PM EDT Office Visit [facility] [place] Mendoza [facility] [address] [facility] 110 [place] [address] Jacquie Townsend PA [address] [facility] [address] [place] [address] documented as of this encounter Visit Diagnoses Not on filedocumented in this encounter Additional Health Concerns Assessment Noted Time PHQ-9 Depression Total Score: 0 01/17/20 25 2:00 PM EDT documented as of this encounter Care Teams Infection Control Coordinator Relationship Specialty Start Date End Date Carrol Sethi MD [address] [facility] [address] [place] [address] PCP - General Family Medicine 01/18/23 Jacquie Townsend PA [address] [facility] [address] [place] [address] PCP - ACO Reach 10/19/24 Melanie Gallegos LPN [address] [facility] [address] [place] [address] 05/03/25 05/07/25 documented as of this encounter
--- OUTSIDE RECORDS SUMMARY | 2025-06-30 03:56 | XMS_ITS | Encounter Summary ---
Author Organization [facility] Address [address] [place] [address] Care Team Providers Care Home Health Aid Name Role Phone Carrol Sethi MD Primary Care Provider [phone] Jacquie Townsend Unavailable [phone] Encounter Details Date Type Department Care Team (Late Contact Info) Description 05/27/2025 Abstract [facility] [address] [place] [address] [place] [address] Steven Cramer, DPNkechi [address] [facility] 5 [place] [address] Social History Tobacco Use Types Packs/Day Years [...] 07/09/2025 2:00 PM EDT Office Visit [facility] [address] [facility] [place] [address] [place] [address] Jacquie Townsend PA [address] [facility] [address] [place] [address] documented as of this encounter Visit Diagnoses Not on filedocumented in this encounter Additional Health Concerns Assessment Noted Time PHQ-9 Depression Total Score: 0 01/17/20 25 2:00 PM EDT documented as of this encounter Care Teams Home Health Aid Relationship Specialty Start Date End Date Carrol Sethi MD [address] [place] [address] PCP - General Family Medicine 01/18/23 Jacquie Townsend PA [address] [place] [address] PCP - ACO Reach 10/19/24 documented as of this encounter
--- OUTSIDE RECORDS SUMMARY | 2025-06-30 03:56 | XMS_ITS | Encounter Summary ---
Author Organization [facility] Address [address] [place] [address] Care Team Providers Care Builder'S Labourer Name Role Phone Carrol Sethi MD Primary Care Provider [phone] Jacquie Townsend Unavailable [phone] Melanie Gallegos LPN Unavailable Encounter Details Date Type Department Care Team (Late st Contact Info) Description 04/09/2025 Abstract [facility] [place] [facility] [address] [facility] 110 [place] [address] Carrol Sethi MD [address] [facility] 110 [place] [address] Social History Tobacco Use Types Packs/Day Years [...] 4:25 PM EDT Danelle Klein LP N Feeling [...] 2:00 PM EDT Office Visit [facility] [place] [address] [facility] [address] [place] [address] Jacquie Townsend PA [address] [facility] [address] [place] [address] documented as of this encounter Visit Diagnoses Not on filedocumented in this encounter Additional Health Concerns Assessment Noted Time PHQ-9 Depression Total Score: 0 01/17/20 2:00 PM EDT documented as of this encounter Care Teams Builder'S Labourer Relationship Specialty Start Date End Date Carrol Sethi MD [address] [facility] [address] [place] [address] PCP - General Family Medicine 01/18/23 Jacquie Townsend PA [address] [facility] [address] [place] [address] PCP - ACO Reach 10/19/24 Melanie Gallegos LPN [address] [facility] [address] [place] [address] 05/03/25 05/07/25 documented as of this encounter
--- OUTSIDE RECORDS SUMMARY | 2025-06-30 03:56 | XMS_ITS | Encounter Summary ---
Author Organization [facility] Address [address] [place] [address] Care Team Providers Care Gumming Machine Operator Name Role Phone Carrol Sethi MD Primary Care Provider [phone] Jacquie Townsend PA Unavailable [phone] Melanie Gallegos LPN Unavailable Encounter Details Date Type Department Care Team (Late Contact Info) Description 04/04/2025 Abstract [facility] [place] Nugent [address] [facility] 110 [place] [address] Carrol Sethi MD [address] [facility] 110 [place] [address] Social History Tobacco Use Types Packs/Day Years [...] PM EDT Office Visit [facility] [place] Mendoza [facility] [address] [facility] 110 [place] [address] Jacquie Townsend PA [address] [facility] 110 [place] [address] documented as of this encounter Visit Diagnoses Not on filedocumented in this encounter Additional Health Concerns Assessment Noted Time PHQ-9 Depression Total Score: 0 01/17/20 25 2:00 PM EDT documented as of this encounter Care Teams Gumming Machine Operator Relationship Specialty Start Date End Date Carrol Sethi MD [address] [facility] 110 [place] [address] PCP - General Family Medicine 01/18/23 Jacquie Townsend PA [address] [facility] 110 [place] [address] PCP - ACO Reach 10/19/24 Melanie Gallegos LPN [address] [facility] 110 [place] [address] 05/03/25 05/07/25 documented as of this encounter
--- OUTSIDE RECORDS SUMMARY | 2025-06-30 03:56 | XMS_ITS | Encounter Summary ---
Author Organization [facility] Address [address] [place] [address] Care Team Providers Care Line Rider Name Role Phone Carrol Sehti MD Primary Care Provider [phone] Jacquie Townsend PA Unavailable [phone] Melanie Gallegos LPN Unavailable Encounter Details Date Type Department Care Team (Late Contact Info) Description 01/21/2025 Abstract [facility] [place] [facility] [address] [facility] 110 [place] [address] Carrol Sethi MD [address] [facility] 110 [place] [address] Social History Tobacco Use Types Packs/Day Years [...] PM EDT Office Visit [facility] [place] [facility] [address] [facility] 110 [place] [address] Jacquie Townsend PA [address] [facility] 110 [place] [address] documented as of this encounter Visit Diagnoses Not on filedocumented in this encounter Additional Health Concerns Assessment Noted Time PHQ-9 Depression Total Score: 0 01/17/20 25 2:00 PM EDT documented as of this encounter Care Teams Line Rider Relationship Specialty Start Date End Date Carrol Sethi MD [address] [facility] 110 [place] [address] PCP - General Family Medicine 01/18/23 Jacquie Townsend PA [address] [facility] 110 [place] [address] PCP - ACO Reach 10/19/24 Mleanie Gallegos LPN [address] [facility] 110 [place] [address] 05/03/25 05/07/25 documented as of this encounter
--- OUTSIDE RECORDS SUMMARY | 2025-06-30 03:56 | XMS_ITS | Encounter Summary ---
Author Organization [facility] Address [address] [place] [address] Care Team Providers Care Peach Grower Name Role Phone Carrol Sethi MD Primary Care Provider [phone] Jacquie Townsend PA Unavailable [phone] Melanie Gallegos LPN Unavailable Encounter Details Date Type Department Care Team (Late Contact Info) Description 04/15/2025 Abstract [facility] [place] [address] [facility] 110 [place] [address] Carrol Sethi MD [address] [facility] 110 [place] [address] Social History Tobacco Use Types Packs/Day Years [...] [place] [facility] [address] [facility] 110 [place] [address] Jacquie Townsend PA [address] [facility] 110 [place] [address] documented as of this encounter Visit Diagnoses Not on filedocumented in this encounter Additional Health Concerns Assessment Noted Time PHQ-9 Depression Total Score: 0 01/17/20 25 2:00 PM EDT documented as of this encounter Care Teams Peach Grower Relationship Specialty Start Date End Date Carrol Sethi MD [address] [facility] 110 [place] [address] PCP - General Family Medicine 01/18/23 Jacquie Townsend PA [address] [facility] 110 [place] [address] PCP - ACO Reach 10/19/24 Melanie Gallegos LPN [address] [facility] 110 [place] [address] 05/03/25 05/07/25 documented as of this encounter
--- OUTSIDE RECORDS SUMMARY | 2025-06-30 03:56 | XMS_ITS | Encounter Summary ---
Author Organization [facility] Address [address] [facility] [place] [address] Care Team Providers Care Dye Worker Name Role Phone Carrol Sethi MD Primary Care Provider [phone] Jacquie Townsend Unavailable [phone] Melanie Gallegos LPN Unavailable Encounter Details Date Type Department Care Team (Late Contact Info) Description 04/24/2025 Abstract [facility] [address] [place] [address] Solitario Simmons, DPM FACFAS [address] [facility] [place] [place] [address] Social History Tobacco Use Types [...] 2:00 PM EDT Office Visit [facility] [place] [facility] 112 [facility] 110 [place] [id number] Jacquie Townsend PA [address] [facility] 110 [place] [address] documented as of this encounter Visit Diagnoses Not on filedocumented in this encounter Additional Health Concerns Assessment Noted Time PHQ-9 Depression Total Score: 0 01/17/20 25 2:00 PM EDT documented as of this encounter Care Teams Dye Worker Relationship Specialty Start Date End Date Carrol Sethi MD [address] [facility] 110 [place] [address] PCP - General Family Medicine 01/18/23 Jacquie Townsend PA [address] [facility] 110 [place] [address] PCP - ACO Reach 10/19/24 Melanie Gallegos LPN [address] [facility] 110 [place] [address] 05/03/25 05/07/25 documented as of this encounter
--- OUTSIDE RECORDS SUMMARY | 2025-06-30 03:56 | XMS_ITS | Encounter Summary ---
Author Organization [facility] Address [address] [place] [address] Care Team Providers Care Ranch Rider Name Role Phone Carrol Sethi MD Primary Care Provider [phone] Jacquie Townsend PA Unavailable [phone] Melanie Gallegos LPN Unavailable Encounter Details Date Type Department Care Team (Late Contact Info) Description 01/09/2025 Abstract [facility] [place] [address] [facility] 110 [place] [address] Carrol Sethi MD [address] [facility] 110 [place] [address] Social History Tobacco Use Types Packs/Day Years [...] Office Visit [facility] [place] [facility] [address] [facility] 110 [place] [address] Jacquie Townsend PA [address] [facility] 110 [place] [address] documented as of this encounter Visit Diagnoses Not on filedocumented in this encounter Additional Health Concerns Assessment Noted Time PHQ-9 Depression Total Score: 0 01/16/20 24 1:00 PM EDT documented as of this encounter Care Teams Ranch Rider Relationship Specialty Start Date End Date Carrol Sethi MD [address] [facility] 110 [place] [address] PCP - General Family Medicine 01/18/23 Jacquie Townsend PA [address] [facility] 110 [place] [address] PCP - ACO Reach 10/19/24 Melanie Gallegos LPN [address] [facility] 110 [place] [address] 05/03/25 05/07/25 documented as of this encounter
--- OUTSIDE RECORDS SUMMARY | 2025-06-30 03:56 | XMS_ITS | Encounter Summary ---
Author Organization [facility] Address [address] [place] [address] Care Team Providers Care Outpatient Services Director Name Role Phone Carrol Sethi MD Primary Care Provider [phone] Jacquie Townsend PA Unavailable [phone] Encounter Details Date Type Department Care Team (Late st Contact Info) Description 05/27/2025 Abstract [facility] [place] [facility] 112 [facility] 110 [place] [address] Carrol Sethi MD [address] [facility] 110 [place] [address] Social History Tobacco Use Types Packs/Day Years [...] Office Visit [facility] [place] [address] [facility] 110 [place] [address] Jacquie Townsend PA [address] [facility] 110 [place] [address] documented as of this encounter Visit Diagnoses Not on filedocumented in this encounter Additional Health Concerns Assessment Noted Time PHQ-9 Depression Total Score: 0 01/17/20 25 2:00 PM EDT documented as of this encounter Care Teams Outpatient Services Director Relationship Specialty Start Date End Date Carrol Sethi MD [address] [facility] 110 [place], [place] [address] PCP - General Family Medicine 01/18/23 Jacquie Townsend PA [address] [facility] 110 [place], [place] [address] PCP - ACO Reach 10/19/24 documented as of this encounter
--- OUTSIDE RECORDS SUMMARY | 2025-06-30 03:56 | XMS_ITS | Encounter Summary ---
Author Organization [facility] Address [address] [facility] [place] [address] Care Team Providers Care Research Engineer Name Role Phone Carrol Sethi MD Primary Care Provider [phone] Jacquie Townsend Unavailable [phone] Melanie Gallegos LPN Unavailable Encounter Details Date Type Department Care Team (Late Contact Info) Description 04/24/2025 Abstract [facility] [address] [place] [address] Solitario Simmons, DPM FACFAS [address] [facility] [place] [address] Social History Tobacco Use Types [...] 2:00 PM EDT Office Visit [facility] [place] [facility] 112 [facility] [address] [place] [phone] Jacquie Townsend PA [address] [facility] 110 [place] [address] documented as of this encounter Visit Diagnoses Not on filedocumented in this encounter Additional Health Concerns Assessment Noted Time PHQ-9 Depression Total Score: 0 01/17/20 25 2:00 PM EDT documented as of this encounter Care Teams Research Engineer Relationship Specialty Start Date End Date Carrol Sethi MD [address] [facility] 110 [place] [address] PCP - General Family Medicine 01/18/23 Jacquie Townsend PA [address] [facility] 110 [place] [address] PCP - ACO Reach 10/19/24 Melanie Gallegos LPN [address] [facility] 110 [place] [address] 05/03/25 05/07/25 documented as of this encounter
--- OUTSIDE RECORDS SUMMARY | 2025-06-30 03:57 | XMS_ITS | Encounter Summary ---
Author Organization [facility] Address [address] [place] [address] Care Team Providers Care Steam Powerplant Supervisor Name Role Phone Carrol Sethi MD Primary Care Provider [phone] Jacquie Townsend PA Unavailable [phone] Melanie Gallegos LPN Unavailable Encounter Details Date Type Department Care Team (Late Contact Info) Description 02/16/2024 Abstract [facility] [place] [facility] [address] [facility] 110 [place] [address] Carrol Sethi MD [address] [facility] 110 [place] [address] Social History Tobacco Use Types Packs/Day Years [...] PM EDT Office Visit [facility] [place] [facility] [address] [facility] 110 [place] [address] Jacquie Townsend PA [address] [facility] 110 [place] [address] documented as of this encounter Visit Diagnoses Not on filedocumented in this encounter Additional Health Concerns Assessment Noted Time PHQ-9 Depression Total Score: 0 01/16/20 24 1:00 PM EDT documented as of this encounter Care Teams Steam Powerplant Supervisor Relationship Specialty Start Date End Date Carrol Sethi MD [address] [facility] 110 [place] [address] PCP - General Family Medicine 01/18/23 Jacquie Townsend PA [address] [facility] 110 [place] [address] PCP - ACO Reach 10/19/24 Melanie Gallegos LPN [address] [facility] 110 [place] [address] 05/03/25 05/07/25 documented as of this encounter
--- OUTSIDE RECORDS SUMMARY | 2025-06-30 03:57 | XMS_ITS | Encounter Summary ---
Author Organization [facility] Address [address] [place] [address] Care Team Providers Care Barrel Cutter Name Role Phone Carrol Sethi MD Primary Care Provider [phone] Jacquie Townsend PA Unavailable [phone] Melanie Gallegos LPN Unavailable Encounter Details Date Type Department Care Team (Late Contact Info) Description 04/25/2025 Abstract [facility] [place] [address] [facility] 110 [place] [address] Carrol Sethi MD [address] [facility] 110 [place] [address] Social History Tobacco Use Types Packs/Day Years [...] PM EDT Office Visit [facility] [place] [facility] [address] [facility] 110 [place] [address] Jacquie Townsend PA [address] [facility] 110 [place] [address] documented as of this encounter Visit Diagnoses Not on filedocumented in this encounter Additional Health Concerns Assessment Noted Time PHQ-9 Depression Total Score: 0 01/17/20 25 2:00 PM EDT documented as of this encounter Care Teams Barrel Cutter Relationship Specialty Start Date End Date Carrol Sethi MD [address] [facility] 110 [place] [address] PCP - General Family Medicine 01/18/23 Jacquie Townsend PA [address] [facility] 110 [place] [address] PCP - ACO Reach 10/19/24 Melanie Gallegos LPN [address] [facility] 110 [place] [address] 05/03/25 05/07/25 documented as of this encounter
--- OUTSIDE RECORDS SUMMARY | 2025-06-30 03:57 | XMS_ITS | Encounter Summary ---
Author Organization [facility] Address [address] [place] [address] Care Team Providers Care Leaded Glass Installer Name Role Phone Carrol Sethi MD Primary Care Provider [phone] Jacquie Townsend PA Unavailable [phone] Melanie Gallegos LPN Unavailable Encounter Details Date Type Department Care Team (Late Contact Info) Description 10/11/2023 Abstract [facility] [place] [address] [facility] 110 [place] [address] Carrol Sethi MD [address] [facility] 110 [place] [address] Social History Tobacco Use Types Packs/Day Years [...] Tsangnce [address] [facility] [address] [place] [address] Jacquie Townsend PA [address] [facility] 110 [place] [address] documented as of this encounter Visit Diagnoses Not on filedocumented in this encounter Care Teams Leaded Glass Installer Relationship Specialty Start Date End Date Carrol Sethi MD [address] [facility] 110 [place] [address] PCP - General Family Medicine 01/18/23 Jacquie Townsend PA [address] [facility] 110 [place] [address] PCP - ACO Reach 10/19/24 Melanie Gallegos LPN [address] [facility] 110 [place] [address] 05/03/25 05/07/25 documented as of this encounter
--- OUTSIDE RECORDS SUMMARY | 2025-06-30 03:57 | XMS_ITS | Encounter Summary ---
Author Organization [facility] Address [address] [place] [address] Care Team Providers Care Clip Loading Machine Adjuster Name Role Phone Carrol Sethi MD Primary Care Provider [phone] Jacquie Townsend PA Unavailable [phone] Melanie Gallegos LPN Unavailable Encounter Details Date Type Department Care Team (Late Contact Info) Description 01/17/2024 Abstract [facility] [place] [address] [facility] 110 [place] [address] Carrol Sethi MD 112 [facility] 110 [place] [address] Social History Tobacco Use Types Packs/Day Years [...] PM EDT Office Visit [facility] [place] [facility] [address] [facility] 110 [place] [address] Jacquie Townsend PA [address] [facility] 110 [place] [address] documented as of this encounter Visit Diagnoses Not on filedocumented in this encounter Additional Health Concerns Assessment Noted Time PHQ-9 Depression Total Score: 0 01/16/20 24 1:00 PM EDT documented as of this encounter Care Teams Clip Loading Machine Adjuster Relationship Specialty Start Date End Date Carrol Sethi MD [address] [facility] 110 [place] [address] PCP - General Family Medicine 01/18/23 Jacquie Townsend PA [address] [facility] 110 [place] [address] PCP - ACO Reach 10/19/24 Melanie Gallegos LPN [address] [facility] 110 [place] [address] 05/03/25 05/07/25 documented as of this encounter
--- OUTSIDE RECORDS SUMMARY | 2025-06-30 03:57 | XMS_ITS | Clinical Summary ---
Author Organization [facility] Address [address] [place] [address] Care Team Providers Care Oyster Shipper Name Role Phone Carrol Sethi MD Primary Care Provider [phone] Jacquie Townsend Unavailable [phone] Allergies Active Allergy Reactions Criticality Noted Date Comments Cat Dander 04/05/2025 Medications Acetaminophen 500 MG capsule Take 2 tablets by mouth every 6 (six) hours if needed for mild pain. Active OXcarbazepine (Trileptal) 150 MG tabletIndication s:Polyneuropathy Take 1 tablet (150 mg) by mouth in the morning and 1 tablet (150 mg) before bedtime. 200 tablet 3 01/16/20 24 Active cholecalciferol (Vitamin D-3) 125 MCG (5000 UT) capsuleIndicatio ns:Vitamin D deficiency Take 1 capsule (125 mcg) by mouth Daily 100 capsule 3 01/16/20 24 Active glucose 4 g chewable tabletIndication s:Hypoglycemic episode in patient with diabetes mellitus (HCC) Chew 4 tablets (16 g) if needed for low blood sugar 40 tablet 2 01/16/20 24 Active permethrin (Elimite) 5 % cream 04/05/20 25 Active insulin degludec (Tresiba FlexTouch) 200 UNIT/ML injectionIndicat ions:Type 2 diabetes mellitus with other specified complication, with long-term current use of insulin (HCC) Inject 10 Units under the skin at bedtime 3 mL 11 04/09/20 25 026 Active Elastic Bandages & Supports (Medical Compression Stockings) miscIndications: Pitting edema 2 each Daily On in AM, off in PM. Dispense 2 pairs. 20-30 mmHg. 2 each 1 04/24/20 25 Active Continuous Glucose Sensor (FreeStyle Austin 3 Plus Sensor) miscIndications: Type 2 diabetes mellitus with other specified complication, with long-term current use of insulin ([facility]) 1 each every 14 (fourteen) days 12 each 04/25/20 25 Active Glucose Blood (Blood Glucose Test) stripIndications :Type 2 diabetes mellitus with other specified complication, with long-term current use of insulin ([facility]) 1 each by In Vitro route Daily 100 strip 3 05/06/20 25 Active potassium chloride CR (Klor-Con M20) 20 MEQ ER tabletIndication s:Bilateral lower extremity edema Take 1 tablet (20 mEq) by mouth Daily Do not crush or chew. 90 tablet 1 06/11/20 25 Active furosemide (Lasix) 40 MG tabletIndication s:Bilateral lower extremity edema Take 1 tablet (40 mg) by mouth in the morning. 90 tablet 1 06/11/20 25 Active apixaban (Eliquis) 5 MG tabletIndication s:History of pulmonary embolism Take 1 tablet (5 mg) by mouth in the morning and 1 tablet (5 mg) before bedtime. 84 tablet 06/11/20 25 Active QUEtiapine (SEROquel) 100 MG tabletIndication s:Moderate episode of recurrent major depressive disorder (HCC) Take 1 tablet (100 mg) by mouth at bedtime 90 tablet 1 06/11/20 25 Active sennosides (Senokot) 8.6 MG tablet Take 2 tablets by mouth as needed at bedtime for constipatio n. 025 Discontinued sertraline (Zoloft) 100 MG tabletIndication s:Moderate episode of recurrent major depressive disorder (HCC) Take 1 tablet (100 mg) by mouth Daily 100 tablet 3 01/16/20 24 025 Discontinued QUEtiapine (SEROquel) 100 MG tabletIndication s:Moderate episode of recurrent major depressive disorder (HCC) Take 1 tablet (100 mg) by mouth at bedtime 100 tablet 3 01/16/20 24 025 Discontinued(Re order) lamoTRIgine (LaMICtal) 100 MG tabletIndication s:Polyneuropathy Take 1 tablet (100 mg) by mouth Daily 100 tablet 3 05/06/ 025 Discontinued gabapentin (Neurontin) 100 MG capsuleIndicatio ns:Polyneuropath y Take 1 capsule (100 mg) by mouth in the morning and 1 capsule (100 mg) in the evening and 1 capsule (100 mg) before bedtime. Take with 800 mg dosage. 90 capsule 5 01/16/20 025 Discontinued gabapentin (Neurontin) 800 MG tabletIndication s:Polyneuropathy TAKE 1 TABLET BY MOUTH EVERY MORNING TAKE ONE TABLET BY MOUTH EVERY EVENING AND TAKE 1 TABLET BY MOUTH AT BEDTIME 90 tablet 5 08/08/20 025 Discontinued apixaban (Eliquis) 5 MG tabletIndication s:History of pulmonary embolism Take 1 tablet (5 mg) by mouth in the morning and 1 tablet (5 mg) before bedtime. 60 tablet 09/07/20 025 Discontinued(Co st of medication) metoprolol tartrate (Lopressor) 25 MG tabletIndication s:Primary hypertension Take 1 tablet (25 mg) by mouth in the morning. with food. 04/09/20 025 Discontinued QUEtiapine (SEROquel) 25 MG tabletIndication s:Moderate episode of recurrent major depressive disorder (HCC) Take 1 tablet (25 mg) by mouth at bedtime Take with the 100 mg tablet 30 tablet 2 05/06/20 025 Discontinued furosemide (Lasix) 40 MG tabletIndication s:Bilateral lower extremity edema Take 1 tablet (40 mg) by mouth in the morning. 30 tablet 2 05/24/20 025 Discontinued(Re order) potassium chloride CR (Klor-Con M20) 20 MEQ ER tabletIndication s:Bilateral lower extremity edema Take 1 tablet (20 mEq) by mouth Daily Do not crush or chew. 30 tablet 2 05/24/20 025 Discontinued(Re order) doxycycline (Vibramycin) 100 MG capsuleIndicatio ns:Cellulitis of both lower extremities Take 1 capsule (100 mg) by mouth in the morning and 1 capsule (100 mg) before bedtime. Do all this for 7 days. Take with at least 8 ounces (large glass) of water, do not lie down for 30 minutes after. 14 capsule 05/27/20 25 025 Active Problems Problem Noted Date [...] Encounters Date Type Department Care Team Description 06/11/2025 3:00 PM EDT Office Visit [facility] [place] [address] [address] [place] [address] Jacquie Townsend PA Bilateral lower extremity edema (Primary Dx); History of pulmonary embolism; Moderate episode of recurrent major depressive disorder (HCC); Homeless; Financial difficulties; Encounter for immunization; Type 2 diabetes mellitus with other specified complication, with long-term current use of insulin (HCC); Primary insomnia; Polyneuropathy 06/11/2025 Bamboo flowsheet [facility] [place] [address] [place] [address] Jacquie Townsend PA 06/11/2025 Travel 06/05/2025 Abstract [facility] [place] [place] [address] Carrol Sethi MD 05/27/2025 Abstract [facility] [address] [facility] [address] [place] [address] Steven Cramer DPM 05/27/2025 Results Follow-Up [facility] [place] [facility] [address] [facility] [address] [place] [address] Jacquie Townsend PA Basic metabolic panel 05/27/2025 Abstract [facility] [place] [facility] [address] [facility] [address] [place] [address] Carrol Sethi MD 05/27/2025 Abstract [facility] [place] [facility] [address] [facility] [address] [place] [address] Carrol Sethi MD 05/27/2025 Telephone [facility] [place] [facility] [address] [facility] [address] [place] [address] Jacquie Townsend PA Results 05/24/2025 12:30 PM EDT Office Visit [facility] [place] [facility] [address] [facility] [address] [place] [address] Jacquie Townsend, PA Cellulitis of both lower extremities (Primary Dx); Primary hypertension ; Type 2 diabetes mellitus with other specified complication, with long-term current use of insulin (HCC); Bilateral lower extremity edema; Open wound of left knee, initial encounter; Moderate episode of recurrent major depressive disorder (HCC) 05/24/2025 Clinisync Result Encounter [facility] External Department Unsolicited Jacquie Townsend PA 05/24/2025 Bamboo flowsheet [facility] [place] [facility] [address] [facility] [address] [place] [address] Jacquie Townsend PA 05/24/2025 Travel 05/21/2025 Patient Outreach [facility] [address] [place] [address] Melanie Gallegos LPN 05/20/2025 Abstract [facility] [place] [facility] [address] [place] [address] [place] [address] Carrol Sethi MD 05/20/2025 Abstract [facility] [place] [facility] [address] [place] [address] [place] [address] Carrol Sethi MD 05/20/2025 Abstract [facility] [place] [facility] [address] [place] [address] [place] [address] Carrol Sethi MD 05/20/2025 Abstract [facility] [place] [facility] [address] [place] [address] [place] [address] Carrol Sethi MD 05/20/2025 Abstract [facility] [place] [facility] [address] [place] [address] [place] [address] Carrol Sethi MD 05/20/2025 Abstract [facility] [place] [facility] [address] [facility] [address] [place] [address] Carrol Sethi MD 05/20/2025 Abstract [facility] [place] [facility] [address] [facility] [address] [place] [address] Carrol Sethi MD 05/17/2025 Clinisync Result Encounter [facility] External Department Unsolicited Provider, Generic External Data 05/14/[address] [facility] [address] [place] [phone] Melanie Gallegos LPN 05/06/2025 1:30 PM EDT Office Visit [facility] [place] [facility] [address] [facility] [address] [place] [address] Jacquie Townsend, PA Type 2 diabetes mellitus with other specified complication, with long-term current use of insulin (HCC) (Primary Dx); Complex regional pain syndrome type 1, affecting unspecified site; Primary hypertension ; Primary insomnia; Moderate episode of recurrent major depressive disorder (HCC) 05/06/2025 Patient Outreach [facility] [address] [place] [address] Melanie Gallegos, DRIVER'S LICENSE EXAMINER 05/06/2025 Bamboo flowsheet [facility] [place] [facility] [address] [facility] [address] [place] [address] Jacquie Townsend PA 05/06/2025 Travel 04/25/2025 Telephone [facility] [place] [facility] [address] [facility] [address] [place] [address] Carrol Sethi MD 04/25/2025 Abstract [facility] [place] [facility] [address] [facility] [address] [place] [address] Carrol Sethi MD 04/25/2025 Abstract [facility] [place] [facility] [address] [facility] [address] [place] [address] Carrol Sethi MD 04/24/2025 Abstract [facility] [address] [place] [address] Solitario Simmons R, DPM FACFAS 04/24/2025 Abstract [facility] [address] [facility] [place] [place] [address] Naveen Simmonsm R, DPM FACFAS 04/23/2025 Telephone [facility] [place] [facility] [address] [facility] [address] [place] [address] Carrol Sethi MD Med Refill 04/23/2025 Orders Only [facility] [place] [facility] [address] [facility] [address] [place] [address] Jacquie Townsend, PA Type 2 diabetes mellitus with other specified complication, with long-term current use of insulin (HCC) 04/15/2025 Telephone [facility] [place] [facility] [address] [facility] [address] [place] [address] Carrol Sethi MD 04/15/2025 Abstract [facility] [place] [facility] [address] [facility] [address] [place] [address] Carrol Sethi MD 04/12/2025 Abstract [facility] [address] [place] [address] Solitario Simmons DPM FACFAS 04/09/2025 4:30 PM EDT Office Visit [facility] [place] [address] [place] [address] Jacquie Townsend PA Type 2 diabetes mellitus [...] leg 04/09/2025 Travel 04/09/2025 Abstract [facility] [place] [address] [place] [address] Carrol Sethi MD 04/04/2025 Abstract [facility] [address] [place] [address] Carrol Sethi MD 04/04/2025 Abstract [facility] [address] [place] [address] Carrol Sethi MD 04/03/2025 Abstract [facility] [address] [place] [address] Carrol Sethi MD 04/01/2025 Telephone [facility] [address] [place] [address] Jacquie Townsend PA from Last 3 Months Immunizations Immunization Administration Dates Next Due ABRYSVO - Respiratory syncyt ial virus (RSV), vaccine, bivalent, protein subunit RSV prefusion F, diluent reconstituted, 0.5 mL, PF 01/03/2025 Hep B, adult 06/25/2020 Influenza, [place]in [place] Canin e Kidney, subunit, trivalent, injectable, contains preservative 06/11/2025 Influenza, Recombinant, inje ctable, preservative free 01/03/2025 Influenza, injectable, quadrivalent 12/02/2021,1 Influenza, recombinant, quad rivalent, injectable, preservative free 05/10/2023,06/25/2020,07/02/2019 Novel [id number], preservative-free 07/10 Pneumococcal Conjugate PCV 20 05/10/2023 [...] Date Recorded Patient Health Questionnaire-2 Score 0 06/11/2025 Sex and Gender Information Value Date Recorded Sex Assigned at Male 01/18/2024 4:05 AM EDT Legal Sex Male 7:17 PM EDT Gender Identity Male 01/18/2024 4:05 AM EDT Sexual Orientation Straight 01/18/2024 4: 05 AM EDT Last Filed Vital Signs Vital Sign Reading Time Taken Comments Blood Pressure 142/84 06/11/2025 3:04 PM EDT Pulse 62 06/11/2025 3:04 PM EDT Temperature 36.8 C (98.2 F) 05/24/2025 11:56 AM EDT Respiratory Rate 16 06/11/2025 3:04 PM EDT Oxygen Saturation 99% 06/11/2025 3:04 PM EDT Inhaled Oxygen Concentration - - Weight 98.1 kg (216 lb 3.2 oz) 06/11/2025 3:04 P M EDT Height 186.7 cm (6' 1.5 ) 06/11/2025 3:04 PM EDT Body Mass Index 28.14 06/11/2025 3:04 PM EDT Plan of Treatment Upcoming Encounters Date Type Department Care Team (Late st Contact Info) Description 07/09/2025 2:00 PM EDT Office Visit [facility] [place] [facility] [address] [facility] [address] [place] [address] Jacquie Townsend PA 112 [facility] [address] [place] [address] Health Maintenance Due Date Last Done Comments CT Colonography 1963 Colonoscopy 1965 FIT 1963 FOBT 1965 Sigmoidoscopy 1963 Diabetes: Hemoglobin A1C 04/19/2025 025, 2024, 04/25/2023, Additional history exists Medicare Annual Wellness (AWV) 2026 2025 , 2024 Diabetes: Urine Protein Screening 01/17/2026 01/17/2025, 02/24/2022, 11/03/2020, Additional history exists Diabetes: Retinopathy Screening 01/31/2026 Colorectal Cancer Screening 02/04/2027 FIT-DNA 02/04/2027 02/05/2024, 08/02/2020 Influenza Vaccine Completed 06/11/2025, , 05/10/2023, Additional history exists Procedures Procedure Name Priority Date/Time Associated Diagnosis Comments ALL BASIC METABOLIC PANEL Routine 05/24/2025 1:34 PM EDT SUPERFICIAL WOUND (HTRX) Routine 05/24/2025 12:43 PM EDT Open wound of left knee, initial encounter BLOOD CULTURE 2 Routine 05/17/2025 2:35 PM EDT BLOOD CULTURE 1 Routine 05/17/2025 2:28 PM EDT MICROALBUMIN / CREATININE URINE RATIO Routine 01/17/2025 [...] Recently Relevant to Health Maintenance Results * (ABNORMAL) ALL BASIC METABOLIC PANEL (05/24/2025 1:34 PM EDT) SODIUM 138 136 - 145 mmol/L [facility] POTASSIUM 4.2 3.5 - 5.1 mmol/L [facility] CHLORIDE 104 98 - 107 mmol/L [facility] CARBON DIOXIDE 26.0 21.0 - 32.0 mmol/L [facility] ANION GAP 12.2 [facility] GLUCOSE 196(H) 74 - 106 mg/dL [facility] BLOOD UREA NITROGEN 14.0 7.0 - 18.0 mg/dL [facility] CREATININE 0.89 0.70 - 1.30 mg/dL [facility] TB[facility] EGFR-AF LAO >60 >=60 mL/min/1.7 3m 2 TBH TBH EGFR-NON AF LAO >60 >=60 mL/min/1.7 3m 2 [facility] BUN CREATININE RATIO 15.7 TB[facility] CALCIUM 8.9 8.5 - 10.1 mg/dL [facility] 05/24/2025 1:34 PM EDT 05/24/2025 1:35 PM EDT Narrative [facility] - 05/24/2025 2:37 PM EDT us Jacquie CARVALHO [facility] Final [facility] SUPERFICIAL W[facility] (HTRX) (05/24/2025 12:43 PM EDT) ACINETOBACTER BAUMANNII (ACUTE WOUND) 0 19.961 - 24.689 ppm 05/25/2025 10:15 AM EDT [facility] ACINETOBACTER BAUMANNII (ACUTE WOUND) Not Detected 19.961 - 24.689 ppm 05/25/2025 10:15 AM EDT [facility] BACTEROIDES FRAGILIS, VULGATUS (ACUTE WOUND) 0 19.961 - 24.689 ppm 05/25/2025 10:15 AM EDT [facility] BACTEROIDES FRAGILIS, VULGATUS (ACUTE WOUND) Not Detected 19.961 - 24.689 ppm 05/25/2025 10:15 AM EDT [facility] CITROBACTER FREUNDII (ACUTE WOUND) 0 19.961 - 24.689 ppm 05/25/2025 10:15 AM EDT [facility] CITROBACTER FREUNDII (ACUTE WOUND) Not Detected 19.961 - 24.689 ppm 05/25/2025 10:15 AM EDT [facility] CLOSTRIDIUM PERFRINGENS, NOVYI, SEPTICUM (ACUTE WOUND) 0 19.961 - 24.689 ppm 05/25/2025 10:15 AM EDT [facility] CLOSTRIDIUM PERFRINGENS, NOVYI, SEPTICUM (ACUTE WOUND) Not Detected 19.961 - 24.689 ppm 05/25/2025 10:15 AM EDT [facility] ENTEROBACTER CLOACAE COMPLEX, KLEBSIELLA (ENTEROBACTER) AEROGENES ((A) 0 19.961 - 24.689 ppm 05/25/2025 10:15 AM EDT [facility] ENTEROBACTER CLOACAE COMPLEX, KLEBSIELLA (ENTEROBACTER) AEROGENES ((A) Not Detected 19.961 - 24.689 ppm 05/25/2025 10:15 AM EDT [facility] ESCHERICHIA COLI (ACUTE WOUND) 0 19.961 - 24.689 ppm 05/25/2025 10:15 AM EDT [facility] ESCHERICHIA COLI (ACUTE WOUND) Not Detected 19.961 - 24.689 ppm 05/25/2025 10:15 AM EDT [facility] KLEBSIELLA PNEUMONIAE, OXYTOCA (ACUTE WOUND) 0 19.961 - 24.689 ppm 05/25/2025 10:15 AM EDT [facility] KLEBSIELLA PNEUMONIAE, OXYTOCA (ACUTE WOUND) Not Detected 19.961 - 24.689 ppm 05/25/2025 10:15 AM EDT [facility] PROTEUS MIRABILIS, VULGARIS (ACUTE WOUND) 0 19.961 - 24.689 ppm 05/25/2025 10:15 AM EDT [facility] PROTEUS MIRABILIS, VULGARIS (ACUTE WOUND) Not Detected 19.961 - 24.689 ppm 05/25/2025 10:15 AM EDT [facility] PSEUDOMONAS AERUGINOSA (ACUTE WOUND) 0 19.961 - 24.689 ppm 05/25/2025 10:15 AM EDT [facility] PSEUDOMONAS AERUGINOSA (ACUTE WOUND) Not Detected 19.961 - 24.689 ppm 05/25/2025 10:15 AM EDT [facility] SERRATIA MARCESCENS (ACUTE WOUND) 0 19.961 - 24.689 ppm 05/25/2025 10:15 AM EDT [facility] SERRATIA MARCESCENS (ACUTE WOUND) Not Detected 19.961 - 24.689 ppm 05/25/2025 10:15 AM EDT [facility] STAPHYLOCOCCUS AUREUS (ACUTE WOUND) 0 19.961 - 24.689 ppm 05/25/2025 10:15 AM EDT [facility] STAPHYLOCOCCUS AUREUS (ACUTE WOUND) Not Detected 19.961 - 24.689 ppm 05/25/2025 10:15 AM EDT [facility] STREPTOCOCCUS AGALACTIAE (GROUP B STREP) (ACUTE WOUND) 0 19.961 - 24.689 ppm 05/25/2025 10:15 AM EDT [facility] STREPTOCOCCUS AGALACTIAE (GROUP B STREP) (ACUTE WOUND) Not Detected 19.961 - 24.689 ppm 05/25/2025 10:15 AM EDT [facility] STREPTOCOCCUS PYOGENES (GROUP A STREP) (ACUTE WOUND) 0 19.961 - 24.689 ppm 05/25/2025 10:15 AM EDT [facility] STREPTOCOCCUS PYOGENES (GROUP A STREP) (ACUTE WOUND) Not Detected 19.961 - 24.689 ppm 05/25/2025 10:15 AM EDT [facility] VIBRIO CHOLERAE, PARAHAEMOLYTICUS, VULNIFICUS (ACUTE WOUND) 0 23.000 - 31.311 ppm 05/25/2025 10:15 AM EDT [facility] VIBRIO CHOLERAE, PARAHAEMOLYTICUS, VULNIFICUS (ACUTE WOUND) Not Detected 23.000 - 31.311 ppm 05/25/2025 10:15 AM EDT [facility] ENTEROCOCCUS FAECALIS, FAECIUM 0 19.961 - 24.689 ppm 05/25/2025 10:15 AM EDT [facility] ENTEROCOCCUS FAECALIS, FAECIUM Not Detected 19.961 - 24.689 ppm 05/25/2025 10:15 AM EDT [facility] Wound 05/24/2025 12:4 3 PM EDT 05/25/2025 4:15 AM EDT Jacquie CARVALHO LAB BLOOD ORDERABLES Final Res ult [facility] [address] [place] [address] * BLOOD CULTURE 2 (05/17/2025 2:35 PM EDT) BLOOD CULTURE 2 Blood Culture 2 NG5D NO GROWTH AT 5 DAYS.^NO GROWTH AT 5 DAYS. [facility] 05/17/2025 2:35 PM EDT 05/17/2025 3:00 PM EDT Narrative [facility] - 05/23/2025 2:27 PM EDT LEFT AC Generic External Data Provider LAB BLOOD ORDERAB LES Final Result [facility] * BLOOD CULTURE 1 (05/17/2025 2:28 PM EDT) BLOOD CULTURE 1 Blood Culture 1 NG5D NO GROWTH AT 5 DAYS.^NO GROWTH AT 5 DAYS. [facility] 05/17/2025 2:28 PM EDT 05/17/2025 2:56 PM EDT Narrative [facility] - 05/23/2025 2:27 PM EDT RT AC us Generic External Data Provider LAB BLOOD ORDERAB LES Final Result Performing Organization Address [facility]/ZIP Co de Phone Number [facility] * Microalbumin / creatinine urine ratio (01/17/2025 [...] Performing Organization Information Site ID: QPT Name: [facility] Address: [address] [place] [address], [address] [place] [phone] Director: Mikey Lawson MD us Jacquie CARVALHO LAB URINE ORDERABLES Final Res ult [facility] * (ABNORMAL) POCT Glycated hemoglobin, total (01/17/2025 8:37 AM EDT) Hemoglobin A1C 6.0 Blood 01/17/2025 8:37 AM EDT Jacquie CARVALHO POINT OF CARE TEST ENTER/EDIT ORDERABLES Final Result * Cologuard?? colon cancer screening (02/05/2024 1:12 PM EDT) NONINV COLON CA DNA+OCC BLD SCRN STL-IMP Negative Negative 02/23/2024 10:41 AM EDT Mophie (CLIA #:[id number]) Comment: NEGATIVE TEST RESULT. A negative Cologuard [...] screened with both Cologuard and colonoscopy. (Antonella Smith. et al, N Engl J Med 2014;370(14):3631-3610) The normal value (reference range) for this assay is negative. COLOGUARD RE-SCREENING RECOMMENDATION: Periodic colorectal cancer screening is an important part of preventive healthcare for asymptomatic individuals at average risk for colorectal cancer. Following a negative Cologuard result, the [place] [employer] Society and U.S. Multi-Society Task Force screening guidelines recommend a Cologuard re-screening interval of 3 years. References: [place] [employer] Guideline for Colorectal Cancer Screening: https://www.cancer.org/cancer/oalod-vhxkgw-frwzum/ejkodpewd-xwqhdpmlj-dxpixhj/ac s-rec ommendations.html.; Nathan FLOR, Cheikh TEJEDA, Wilda LariosK, Colorectal Cancer Screening: Recommendations for Physicians and Patients from the U.S. Multi-Society Task Force on Colorectal Cancer Screening , Am J Gastroenterology 2017; 112:3227-6274. TEST DESCRIPTION: Composite algorithmic analysis of stool [...] screened with both Cologuard and colonoscopy. (Antonella Yen et al, N Engl J Med 2014;370(14):0727-8042.) Cologuard may produce a false negative or false positive result (no colorectal cancer or precancerous polyp present at colonoscopy follow up). A negative Cologuard test result does not guarantee the absence of CRC or advanced adenoma (pre-cancer). The current Cologuard screening interval is every 3 years. ([place] [employer] Society and U.S. Multi-Society Task Force). Cologuard performance data in a 10,000 patient pivotal study using colonoscopy as the reference method can be accessed at the following location: www.UseTogether.US Toxicology/results. Additional description of the Cologuard test process, warnings and precautions can be found at www.cologuard.com. Stool specimen (specimen) 02/05/2024 1:12 PM EDT 02/08/2024 9:39 AM EDT us Jacquie CARVALHO LAB MOLECULAR DIAGNOSTICS VIVIANA CARLISLE Final Result .[employer] (CLIA #:[id number]) [address] [phone], Mophie (CLIA #:[id number]) [address] [address] * Diabetic Retinopathy Screening - OU - Both Eyes (02/01/2024 3:12 PM EDT) RESULTS normal Anatomical Region Laterality Modality Head Other Carrol Sethi MD [employer] Final Result from Last 3 Months or Most Recently Relevant to Health Maintenance Insurance MEDICARE Advance Directives Documents on File Type Date Recorded Patient After School Driver Expl anation Power of Group Worker 04/10/2025 10:50 AM heal thcare power of admitted attorneys paperwork 2025-04-10 Care Teams Oyster Shipper Relationship Specialty Start Date End Date Carrol Sethi MD [address] [facility] [address] [place] [address] PCP - General Family Medicine 01/18/23 Jacquie Townsend PA [address] [place] [address] [place] [address] PCP - ACO Reach 10/19/24
--- OUTSIDE RECORDS SUMMARY | 2025-06-30 03:57 | XMS_ITS | Encounter Summary ---
Author Organization [facility] Address [address] [place] [address] Care Team Providers Care Electrical Test Engineer Name Role Phone Carrol Sethi MD Primary Care Provider [phone] Jacquie Townsend PA Unavailable [phone] Melanie Gallegos LPN Unavailable Encounter Details Date Type Department Care Team (Late Contact Info) Description 10/05/2023 Abstract [facility] [place] [address] [facility] 110 [place] [address] Carrol Sethi MD [address] [facility] 110 [place] [address] Social History Tobacco Use Types Packs/Day Years [...] [place] [address] [facility] 110 [place] [address] Jacquie Townsend PA [address] [facility] 110 [place] [address] documented as of this encounter Visit Diagnoses Not on filedocumented in this encounter Care Teams Electrical Test Engineer Relationship Specialty Start Date End Date Carrol Sethi MD [address] [facility] 110 [place] [address] PCP - General Family Medicine 01/18/23 Jacquie Townsend PA [address] [facility] 110 [place] [address] PCP - ACO Reach 10/19/24 Melanie Gallegos LPN [address] [facility] 110 [place] [address] 05/03/25 05/07/25 documented as of this encounter
--- OUTSIDE RECORDS SUMMARY | 2025-06-30 03:57 | XMS_ITS | Encounter Summary ---
Author Organization [facility] Address [address] [place] [address] Care Team Providers Care Ground Layer Name Role Phone Carrol Sethi MD Primary Care Provider [phone] Jacquie Townsend Unavailable [phone] Melanie Gallegos LPN Unavailable Reason for Visit * Reason Comments Med Refill Encounter Details Date Type Department Care Team (Late st Contact Info) Description 12/31/2023 Refill [facility] [place] [facility] [address] [facility] 110 [place] [address] Jacquie Townsend PA [address] [facility] 110 [place] [address] Depression, unspecified depression type Social History Tobacco [...] Visit [facility] [place] [address] [facility] 110 [place] [address] Jacquie Townsend PA [address] [facility] 110 [place] [address] documented as of this encounter Visit Diagnoses Diagnosis Depression, unspecified depression type documented in this encounter Care Teams Ground Layer Relationship Specialty Start Date End Date Carrol Sethi MD [address] [facility] 110 [place] [address] PCP - General Family Medicine 01/18/23 Jacquie Townsend PA [address] [facility] 110 [place] [address] PCP - ACO Reach 10/19/24 Melanie Gallegos LPN [address] [facility] 110 [place] [address] 05/03/25 05/07/25 documented as of this encounter
--- OUTSIDE RECORDS SUMMARY | 2025-06-30 03:57 | XMS_ITS | Encounter Summary ---
Author Organization [facility] Address [address] [place] [address] Care Team Providers Care Sand Tester Name Role Phone Carrol Sethi MD Primary Care Provider [phone] Jacquie Townsend PA Unavailable [phone] Encounter Details Date Type Department Care Team (Late st Contact Info) Description 05/20/2025 Abstract [facility] [place] 112 [facility] 110 [place] [address] Carrol Sethi MD [address] [facility] 110 [place] [address] Social History Tobacco Use Types Packs/Day Years [...] Visit [facility] [place] [address] [facility] 110 [place] [address] Jacquie Townsend PA [address] [facility] 110 [place] [address] documented as of this encounter Visit Diagnoses Not on filedocumented in this encounter Additional Health Concerns Assessment Noted Time PHQ-9 Depression Total Score: 0 01/17/20 25 2:00 PM EDT documented as of this encounter Care Teams Sand Tester Relationship Specialty Start Date End Date Carrol Sethi MD [address] [facility] 110 [place], [place] [id number] PCP - General Family Medicine 01/18/23 Jacquie Townsend PA [address] [facility] 110 [place], [place] [address] PCP - ACO Reach 10/19/24 documented as of this encounter
--- OUTSIDE RECORDS SUMMARY | 2025-06-30 03:57 | XMS_ITS | Encounter Summary ---
Author Organization [facility] Address [address] [place] [address] Care Team Providers Care Cotton Bag Clipper Name Role Phone Carrol Sethi MD Primary Care Provider [phone] Jacquie Townsend PA Unavailable [phone] Encounter Details Date Type Department Care Team (Late st Contact Info) Description 05/20/2025 Abstract [facility] [place] 112 [facility] 110 [place] [address] Carrol Sethi MD [address] [place] [facility] 110 [place] [address] Social History Tobacco Use Types Packs/Day Years [...] Visit [facility] [place] [address] [facility] 110 [place] [address] Jacquie Townsend PA [address] [facility] 110 [place] [address] documented as of this encounter Visit Diagnoses Not on filedocumented in this encounter Additional Health Concerns Assessment Noted Time PHQ-9 Depression Total Score: 0 01/17/20 25 2:00 PM EDT documented as of this encounter Care Teams Cotton Bag Clipper Relationship Specialty Start Date End Date Carrol Sethi MD [address] [facility] 110 [place], [place] [id number] PCP - General Family Medicine 01/18/23 Jacquie Townsend PA [address] [facility] 110 [place], [place] [address] PCP - ACO Reach 10/19/24 documented as of this encounter
--- OUTSIDE RECORDS SUMMARY | 2025-06-30 03:57 | XMS_ITS | Encounter Summary ---
Author Organization [facility] Address [address] [place] [address] Care Team Providers Care Machine Tool Technician Instructor Name Role Phone Carrol Sethi MD Primary Care Provider [phone] Jacquie Townsend PA Unavailable [phone] Encounter Details Date Type Department Care Team (Late st Contact Info) Description 05/20/2025 Abstract [facility] [place] 112 [facility] 110 [place] [address] Carrol Sethi MD [address] [place] [facility] 110 [place] [address] Social History Tobacco Use Types Packs/Day Years [...] Office Visit [facility] [place] [address] [facility] 110 [place] [address] Jacquie Townsend PA [address] [place] [facility] 110 [place] [address] documented as of this encounter Visit Diagnoses Not on filedocumented in this encounter Additional Health Concerns Assessment Noted Time PHQ-9 Depression Total Score: 0 01/17/20 25 2:00 PM EDT documented as of this encounter Care Teams Machine Tool Technician Instructor Relationship Specialty Start Date End Date Carrol Sethi MD [address] [facility] 110 [place], [place] [address] PCP - General Family Medicine 01/18/23 Jacquie Townsend PA [address] [facility] 110 [place], [place] [address] PCP - ACO Reach 10/19/24 documented as of this encounter
--- OUTSIDE RECORDS SUMMARY | 2025-06-30 03:57 | XMS_ITS | Encounter Summary ---
Author Organization [facility] Address [address] [place] [address] Care Team Providers Care Manufacturing Lead Name Role Phone Carrol Sethi MD Primary Care Provider [phone] Jacquie Townsend PA Unavailable [phone] Melanie Gallegos LPN Unavailable Encounter Details Date Type Department Care Team (Late Contact Info) Description 04/25/2025 Abstract [facility] [place] [address] [facility] 110 [place] [address] Carrol Sethi MD [address] [facility] 110 [place] [address] Social History Tobacco Use Types Packs/Day Years [...] [place] [facility] [address] [facility] 110 [place] [address] Jacquie Townsend PA [address] [facility] 110 [place] [address] documented as of this encounter Visit Diagnoses Not on filedocumented in this encounter Additional Health Concerns Assessment Noted Time PHQ-9 Depression Total Score: 0 01/17/20 25 2:00 PM EDT documented as of this encounter Care Teams Manufacturing Lead Relationship Specialty Start Date End Date Carrol Sethi MD [address] [facility] 110 [place] [address] PCP - General Family Medicine 01/18/23 Jacquie Townsend PA [address] [facility] 110 [place] [address] PCP - ACO Reach 10/19/24 Melanie Gallegos LPN [address] [facility] 110 [place] [address] 05/03/25 05/07/25 documented as of this encounter
--- OUTSIDE RECORDS SUMMARY | 2025-06-30 03:57 | XMS_ITS | Encounter Summary ---
Author Organization [facility] Address [address] [place] [address] Care Team Providers Care Retail Maintenance Technician Name Role Phone Carrol Sethi MD Primary Care Provider [phone] Jacquie Townsend Unavailable Melanie Gallegos LPN Unavailable Reason for Visit * Reason Comments Med Refill Encounter Details Date Type Department Care Team (Late st Contact Info) Description 12/31/2023 Refill [facility] [place] [facility] [address] [facility] 110 [place] [address] Carrol Sethi MD [address] [facility] 110 [place] [address] Depression, unspecified depression type Social History Tobacco [...] Visit [facility] [place] [address] [facility] 110 [place] [address] Jacquie Townsend PA [address] [facility] 110 [place] [address] documented as of this encounter Visit Diagnoses Diagnosis Depression, unspecified depression type documented in this encounter Care Teams Retail Maintenance Technician Relationship Specialty Start Date End Date Carrol Sethi MD [address] [facility] 110 [place] [address] PCP - General Family Medicine 01/18/23 Jacquie Townsend PA [address] [facility] 110 [place] [address] PCP - ACO Reach 10/19/24 Melanie Gallegos LPN [address] [facility] 110 [place] [address] 05/03/25 05/07/25 documented as of this encounter
--- OUTSIDE RECORDS SUMMARY | 2025-06-30 03:57 | XMS_ITS | Clinical Summary ---
Author Organization [facility] Address [address] [place] [place] [address] Phone Care Team Providers Care Nuclear Medicine Pet Ct Technologist Name Role Phone Unavailable Primary Care Provider [...]
--- OUTSIDE RECORDS SUMMARY | 2025-06-30 03:57 | XMS_ITS | Encounter Summary ---
Author Organization [facility] Address [address] [place] [address] Care Team Providers Care Classified Advertising Supervisor Name Role Phone Carrol Sethi MD Primary Care Provider [phone] Jacquie Townsend PA Unavailable [phone] Encounter Details Date Type Department Care Team (Late st Contact Info) Description 05/20/2025 Abstract [facility] [place] 112 [facility] 110 [place] [address] Carrol Sethi MD [address] [place] [facility] 110 [place] [address] Social History Tobacco Use Types Packs/Day Years [...] Office Visit [facility] [place] [address] [facility] 110 [place] [address] Jacquie Townsend PA [address] [facility] 110 [place] [address] documented as of this encounter Visit Diagnoses Not on filedocumented in this encounter Additional Health Concerns Assessment Noted Time PHQ-9 Depression Total Score: 0 01/17/20 25 2:00 PM EDT documented as of this encounter Care Teams Classified Advertising Supervisor Relationship Specialty Start Date End Date Carrol Sethi MD [address] [facility] 110 [place], [place] [address] PCP - General Family Medicine 01/18/23 Jacquie Townsend PA [address] [facility] 110 [place], [place] [address] PCP - ACO Reach 10/19/24 documented as of this encounter
--- OUTSIDE RECORDS SUMMARY | 2025-06-30 03:57 | XMS_ITS | Encounter Summary ---
Author Organization [facility] Address [address] [place] [address] Care Team Providers Care Metal Dresser Name Role Phone Carrol Sethi MD Primary Care Provider [phone] Jacquie Townsend PA Unavailable [phone] Encounter Details Date Type Department Care Team (Late st Contact Info) Description 05/20/2025 Abstract [facility] [place] 112 [facility] 110 [place] [address] Carrol Sethi MD [address] [facility] 110 [place] [address] Social History Tobacco Use Types Packs/Day Years [...] Visit [facility] [place] [address] [facility] 110 [place] [address] Jacquie Townsend PA [address] [facility] 110 [place] [address] documented as of this encounter Visit Diagnoses Not on filedocumented in this encounter Additional Health Concerns Assessment Noted Time PHQ-9 Depression Total Score: 0 01/17/20 25 2:00 PM EDT documented as of this encounter Care Teams Metal Dresser Relationship Specialty Start Date End Date Carrol Sethi MD [address] [facility] 110 [place], [place] [address] PCP - General Family Medicine 01/18/23 Jacquie Townsend PA [address] [facility] 110 [place], [place] [address] PCP - ACO Reach 10/19/24 documented as of this encounter
--- OUTSIDE RECORDS SUMMARY | 2025-06-30 03:57 | XMS_ITS | Encounter Summary ---
Author Organization [facility] Address [address] [place] [address] Care Team Providers Care Cook Pressure Name Role Phone Carrol Sethi MD Primary Care Provider [phone] Jacquie Townsend PA Unavailable [phone] Melanie Gallegos LPN Unavailable Encounter Details Date Type Department Care Team (Late Contact Info) Description 01/17/2024 Abstract [facility] [place] [address] [facility] 110 [place] [address] Carrol Sethi MD [address] [place] [facility] 110 [place] [address] Social History Tobacco Use Types Packs/Day Years [...] PM EDT Office Visit [facility] [place] [facility] [address] [facility] 110 [place] [address] Jacquie Townsend PA [address] [facility] 110 [place] [address] documented as of this encounter Visit Diagnoses Not on filedocumented in this encounter Additional Health Concerns Assessment Noted Time PHQ-9 Depression Total Score: 0 01/16/20 24 1:00 PM EDT documented as of this encounter Care Teams Cook Pressure Relationship Specialty Start Date End Date Carrol Sethi MD [address] [facility] 110 [place] [address] PCP - General Family Medicine 01/18/23 Jacquie Townsend PA [address] [facility] 110 [place] [address] PCP - ACO Reach 10/19/24 Melanie Gallegos LPN [address] [facility] 110 [place] [address] 05/03/25 05/07/25 documented as of this encounter
--- OUTSIDE RECORDS SUMMARY | 2025-06-30 03:57 | XMS_ITS | Encounter Summary ---
Author Organization [facility] Address [address] [place] [address] Care Team Providers Care Financial Planning Analyst Name Role Phone Carrol Sethi MD Primary Care Provider [phone] Jacquie Townsend PA Unavailable [phone] Encounter Details Date Type Department Care Team (Late st Contact Info) Description 05/20/2025 Abstract [facility] [place] 112 [facility] 110 [place] [address] Carrol Sethi MD [address] [place] [facility] 110 [place] [address] Social History Tobacco Use Types Packs/Day Years [...] Office Visit [facility] [place] [address] [facility] 110 [place] [address] Jacquie Townsend PA [address] [place] [facility] 110 [place] [address] documented as of this encounter Visit Diagnoses Not on filedocumented in this encounter Additional Health Concerns Assessment Noted Time PHQ-9 Depression Total Score: 0 01/17/20 25 2:00 PM EDT documented as of this encounter Care Teams Financial Planning Analyst Relationship Specialty Start Date End Date Carrol Sethi MD [address] [facility] 110 [place], [place] [address] PCP - General Family Medicine 01/18/23 Jacquie Townsend PA [address] [facility] 110 [place], [place] [address] PCP - ACO Reach 10/19/24 documented as of this encounter
--- OUTSIDE RECORDS SUMMARY | 2025-06-30 03:57 | XMS_ITS | Encounter Summary ---
Author Organization [facility] Address [address] [place] [address] Care Team Providers Care Safety Leader Name Role Phone Carrol Sethi MD Primary Care Provider [phone] Jacquie Townsend PA Unavailable [phone] Encounter Details Date Type Department Care Team (Late st Contact Info) Description 05/20/2025 Abstract [facility] [place] 112 [facility] 110 [place] [address] Carrol Sethi MD [address] [facility] 110 [place] [address] Social History Tobacco Use Types Packs/Day Years [...] Office Visit [facility] [place] [address] [facility] 110 [place] [address] Jacquie Townsend PA [address] [facility] 110 [place] [address] documented as of this encounter Visit Diagnoses Not on filedocumented in this encounter Additional Health Concerns Assessment Noted Time PHQ-9 Depression Total Score: 0 01/17/20 25 2:00 PM EDT documented as of this encounter Care Teams Safety Leader Relationship Specialty Start Date End Date Carrol Sethi MD [address] [facility] 110 [place], [place] [address] PCP - General Family Medicine 01/18/23 Jacquie Townsend PA [address] [facility] 110 [place], [place] [address] PCP - ACO Reach 10/19/24 documented as of this encounter
[2025-06-30 04:14] VITALS: BP 120/62; PULSE 82; TEMP 36.9; O2SAT 97; BMI 29.8
[2025-06-30 04:30] VITALS: PULSE 66
--- NOTE | 2025-06-30 04:30 | ECG_ITS ---
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 Measurements Intervals [place] Rate: 66 P: 61 IA: 138 QRS: 22 QRSD: 86 T: 50 QT: 404 QTc: 417 Interpretive Statements 1100 Sinus rhythm 9110 normal ECG No previous ECG available for comparison Electronically Signed On 06-30-2025 11:07:03 EDT by JIN DEL REAL M.D.
--- NOTE | 2025-06-30 05:35 | ED.EXTPRO1 ---
HPI - Extremity Problem General Chief complaint: Extremity Problem, Nontraumatic Stated complaint: edema in legs Time Seen by Provider: 06/30/25 05:20 Source: patient Mode of arrival: walk-in Limitations: no limitations History of Present Illness HPI Narrative: patient has history of chronic lower extremity edema. history of IDDM and DVT. He is compliant with eliquis and his insulin but does not monitor his blood sugars. prescribed lasix. Has been sleeping in his truck since 05/06 with his legs down. Believes he may have housing within the next week. Complains of pains of his legs. No dyspnea or fever Related Data Home Medications ?Medication ?Instructions ?Recorded ?Confirmed apixaban 5 mg tablet (Eliquis) 5 mg PO BID 05/17/25 06/30/25 furosemide 20 mg tablet 20 mg PO QAM 05/17/25 05/18/25 gabapentin 100 mg capsule 100 mg PO TID 05/17/25 05/18/25 gabapentin 800 mg tablet 800 mg PO TID 05/17/25 05/18/25 insulin degludec 200 unit/mL (3 10 unit subcut DAILY 05/17/25 06/30/25 mL) subcutaneous pen (Tresiba FlexTouch U-200 insulin) lamotrigine 100 mg tablet 100 mg PO .QD 05/17/25 05/18/25 metoprolol tartrate 50 mg tablet 50 mg PO .QD 05/17/25 05/18/25 oxcarbazepine 150 mg tablet 150 mg PO BID 05/17/25 05/18/25 oxycodone-acetaminophen 5 mg-325 1 tab PO Q6H 05/17/25 05/18/25 mg tablet quetiapine 25 mg tablet 25 mg PO .QHS 05/17/25 05/18/25 sertraline 100 mg tablet 100 mg PO .QD 05/17/25 05/18/25 dulaglutide 0.75 mg/0.5 mL 4.5 mg subcut .weekly 05/18/25 06/30/25 subcutaneous pen injector (Trulicity) quetiapine 100 mg tablet 100 mg PO DAILY 05/18/25 05/18/25 Previous Rx's ?Medication ?Instructions ?Recorded cephalexin 500 mg tablet 500 mg PO QID 7 days #28 tabs 05/17/25 sulfamethoxazole 800 1 tab PO BID 7 days #14 tabs 05/17/25 mg-trimethoprim 160 mg tablet (Bactrim DS) Allergies Allergy/AdvReac Type Severity Reaction Status Date / Time No Known Drug Allergies Allergy Verified 06/30/25 04:20 Review of Systems ROS Status of ROS 10 or more systems reviewed and unremarkable except as noted in history and below PFS PFS Medical History Diabetes ?E11.9 - Type 2 diabetes mellitus without complications (ICD-10) Neuropathy ?G62.9 - Polyneuropathy, unspecified (ICD-10) HTN (hypertension) ?I10 - Essential (primary) hypertension (ICD-10) History of pulmonary embolism ?Z86.711 - Personal history of pulmonary embolism (ICD-10) History of DVT (deep vein thrombosis) ?Z86.718 - Personal history of other venous thrombosis and embolism (ICD-10) Surgical History H/O vasectomy ?Z98.52 - Vasectomy status (ICD-10) Family History Grandfather Family history of stroke Family history of cancer Mother Family history of CHF (congestive heart failure) Family history of cancer Family history of diabetes mellitus Family history of hypertension Grandmother Family history of cancer Other Family history of myocardial infarction Social History Within the past year, how often did you have a drink containing alcohol: 2-4 times a month Smoking status: Current some day smoker Non-prescribed substance use: cannabis (any form) Highest level of school completed/degree received: high school graduate Little interest or pleasure in doing things: not at all Feeling down, depressed, or hopeless: not at all Exam Constitutional Vital Signs, click to edit/add: Last Vital Signs Temp 98.4 F 06/30/25 04:14 Pulse 82 06/30/25 04:14 Resp 16 06/30/25 05:18 BP 120/62 06/30/25 04:14 Pulse Ox 97 06/30/25 04:14 O2 Del Method Room Air 06/30/25 04:14 Common normals: no apparent distress, average body habitus, oriented x3, no limitations, healthy appearing, alert and well nourished [facility] Common normals: normocephalic and head/scalp atraumatic Respiratory Common normals: normal respiratory effort, no retractions, no use of accessory muscles and clear to auscultation bilaterally Cardio Common normals: regular rate, regular rhythm, S1 normal heart sound and S2 normal heart sound GI Common normals: Normal to inspection, nondistended, normoactive bowel sounds present, soft to palpation and non-tender Extremity Other: 2+ edema of his lower ext from his knees down to his feet dry stasis dermatitis of both lower extremities. legs are not warm or weeping Neuro Common normals: oriented x3, CN's II-XII intact bilaterally, moves all extremities and no focal motor deficits Psych Appearance: grossly normal Course Vital Signs Vital signs: Vital Signs Temperature 98.4 F 06/30/25 04:14 Pulse Rate 82 06/30/25 04:14 Respiratory Rate 18 06/30/25 04:14 Blood Pressure 120/62 06/30/25 04:14 Pulse Oximetry 97 06/30/25 04:14 Oxygen Delivery Method Room Air 06/30/25 04:14 Temperature 98.4 F 06/30/25 04:14 Pulse Rate 82 06/30/25 04:14 Respiratory Rate 16 06/30/25 05:18 Blood Pressure 120/62 06/30/25 04:14 Pulse Oximetry 97 06/30/25 04:14 Oxygen Delivery Method Room Air 06/30/25 04:14 MDM - Extremity (Nontraumatic) MDM Narrative Medical decision making narrative: patient presents complaining of pain of his legs. He has chronic lower extremity edema and likely acquired lymphedema. He also has stasis dermatitis and I do not see findings at this time of cellulitis. No complaint of dyspnea and his chest is clear. Unfortunately he lives in his truck since 05/06 and sleeps with his legs down. IV established and lasix 40mg ordered. Additional labs ordered to included d-dimer and cardiac labs labs returned normal including d-dimer. Patient given lasix and is responsive to the lasix. Given a prescription of lasix and also advised to purchase support stocking Lab Data Labs: Lab Results 06/30/25 Range/Units 04:35 WBC 7.7 (4.0-11.0) 10^3/uL RBC 4.32 L (4.70-6.10) 10^6/uL Hgb 13.5 L (14.0-18.0) g/dL Hct 40.2 L (42.0-54.0) % MCV 93.1 (80.0-94.0) fL MCH 31.3 (25.9-34.0) pg MCHC 33.6 (29.9-35.2) g/dL RDW 13.9 (11.0-15.0) % Plt Count 197 (150-450) 10^3/uL MPV 9.9 (9.5-13.5) fL Neut % (Auto) 62.3 (43.0-75.0) % Lymph % (Auto) 23.9 (20.5-60.0) % [place] % (Auto) 9.3 (1.7-12.0) % Eos % (Auto) 2.8 (0.9-7.0) % Baso % (Auto) 1.4 (0.2-2.0) % Neut # (Auto) 4.8 (1.4-6.5) 10^3/uL Lymph # (Auto) 1.9 (1.2-3.8) 10^3/uL [place] # (Auto) 0.7 (0.3-0.8) 10^3/uL Eos # (Auto) 0.2 (0.0-0.7) 10^3/uL Baso # (Auto) 0.1 (0.0-0.1) 10^3/uL Abs Immat Gran (auto) 0.02 (0.00-0.03) 10^3/uL Imm/Tot Granulo (auto) 0.3 (0.0-0.5) % D-Dimer 0.45 (<=0.59) mg/L FEU Sodium 138 (136-145) mmol/L Potassium 4.2 (3.5-5.1) mmol/L Chloride 101 (98-107) mmol/L Carbon Dioxide 27.3 (21.0-32.0) mmol/L Anion Gap 13.9 BUN 17.0 (7.0-18.0) mg/dL Creatinine 0.91 (0.70-1.30) mg/dL Est GFR ( Amer) >60 (>=60 mL/min/1.73m^2) Est GFR (Non-Af Amer) >60 (>=60 mL/min/1.73m^2) BUN/Creatinine Ratio 18.7 Glucose 149 H (74-106) mg/dL Calcium 8.7 (8.5-10.1) mg/dL Total Bilirubin 0.4 (0.2-1.0) mg/dL AST 22 (15-37) U/L ALT 26 (16-63) U/L Alkaline Phosphatase 62 (46-116) U/L Troponin I High Sens 9.6 (4.0-76.1) pg/mL C-Reactive Protein <0.50 (<=0.50) mg/dL NT-Pro-B Natriuret Pep 78.0 (<=900.0) pg/mL Total Protein 6.6 (6.4-8.2) g/dL Albumin 3.1 L (3.4-5.0) g/dL Globulin 3.5 g/dL Albumin/Globulin Ratio 0.9 Discharge Plan Discharge Chief Complaint: Extremity Problem, Nontraumatic Clinical Impression: Acquired lymphedema of lower extremity, Chronic stasis dermatitis Patient Disposition: Home, Self-Care Prescriptions / Home Meds: No Action quetiapine 25 mg tablet 25 mg PO .QHS oxcarbazepine 150 mg tablet 150 mg PO BID sertraline 100 mg tablet 100 mg PO .QD gabapentin 800 mg tablet 800 mg PO TID metoprolol tartrate 50 mg tablet 50 mg PO .QD furosemide 20 mg tablet 20 mg PO QAM gabapentin 100 mg capsule 100 mg PO TID lamotrigine 100 mg tablet 100 mg PO .QD insulin degludec [Tresiba FlexTouch U-200] 200 unit/mL (3 mL) insulin pen 10 unit SUBCUT DAILY Eliquis 5 mg tablet 5 mg PO BID oxycodone-acetaminophen 5-325 mg tablet 1 tab PO Q6H cephalexin 500 mg tablet 500 mg PO QID 7 Days Qty: 28 0RF sulfamethoxazole-trimethoprim [Bactrim DS] 800-160 mg tablet 1 tab PO BID 7 Days Qty: 14 0RF Trulicity 0.75 mg/0.5 mL pen injector 4.5 mg SUBCUT .weekly quetiapine 100 mg tablet 100 mg PO DAILY Print Language: Bulgarian Instructions: Lymphedema (ED), Dermatitis (ED) Additional Instructions: keeps legs elevated. Follow up with your doctor next week for recheck Referrals: WARD MALAGON [Primary Care Provider, Family Practice] - 1 week
--- NOTE | 2025-06-30 05:44 | PC.NURSE ---
Bilateral legs swollen red. Pulses doppled
[2025-06-30] MEDS: FUROSEMIDE 40 MG/4 ML VIAL IVP (05:50)
[2025-06-30 05:56] LABS: Hematocrit 40.2 % (42.0-54.0); Hemoglobin 13.5 g/dL (14.0-18.0); Immature Granulocytes Abs Auto 0.02 10^3/uL (0.00-0.03); Immature Granulocytes Pct Auto 0.3 % (0.0-0.5); Lymphocytes Absolute Auto 1.9 10^3/uL (1.2-3.8); Mean Corpuscular HGB Conc 33.6 g/dL (29.9-35.2); Mean Corpuscular Hemoglobin 31.3 pg (25.9-34.0); Mean Corpuscular Volume 93.1 fL (80.0-94.0); Platelet Count 197 10^3/uL (150-450); Red Blood Count 4.32 10^6/uL (4.70-6.10); White Blood Count 7.7 10^3/uL (4.0-11.0)
[2025-06-30 06:05] LABS: Anion Gap 13.9
[2025-06-30 06:12] LABS: Alanine Aminotransferase 26 U/L (16-63); Albumin Globulin Ratio 0.9; Albumin Level 3.1 g/dL (3.4-5.0); Alkaline Phosphatase 62 U/L (46-116); Aspartate Amino Transferase 22 U/L (15-37); Blood Urea Nitrogen 17.0 mg/dL (7.0-18.0); Calcium 8.7 mg/dL (8.5-10.1); Carbon Dioxide 27.3 mmol/L (21.0-32.0); Chloride 101 mmol/L (98-107); Estimated GFR (African America >60 (>=60 mL/min/1.73m^2); Estimated GFR (Non-African Ame >60 (>=60 mL/min/1.73m^2); Globulin 3.5 g/dL; Glucose 149 mg/dL (74-106); NT Pro B Type Natriuretic Pept 78.0 pg/mL (<=900.0); Potassium 4.2 mmol/L (3.5-5.1); Sodium 138 mmol/L (136-145); Total Protein 6.6 g/dL (6.4-8.2)
[2025-06-30] MEDS: HYDROCODONE/ACET 5-325 MG TABLET 4 TAB PO (07:02)
[2025-06-30 07:08] VITALS: BP 134/78; PULSE 62
== END 2025-06-30 07:34 | disposition home or self-care (01) ==
PROVIDERS: Emergency Provider Internal Medicine; PCP Physician Assistant
DX: I89.0 Lymphedema, not elsewhere classified (principal); I87.2 Venous insufficiency (chronic) (peripheral); E11.9 Type 2 diabetes mellitus without complications; Z86.718 Personal history of other venous thrombosis and embolism; Z79.01 Long term (current) use of anticoagulants; Z79.4 Long term (current) use of insulin; Z79.899 Other long term (current) drug therapy; Z59.02 Unsheltered homelessness; Z79.85 Long-term (current) use of injectable non-insulin antidiabetic drugs; F17.200 Nicotine dependence, unspecified, uncomplicated
CPT/HCPCS: 36415; 80053; 83880; 84484; 85025; 85378; 86140; 93005; 99285; J1938